=== PATIENT | female | born 1940 | race Caucasian/White ===

== ENCOUNTER 2023-09-01 08:55 | Outpatient (CLI) | payer MEDICARE, SELFPAY | END 2023-09-01 08:56 | disposition home or self-care (01) | LOC: NFLDREF 09-04 04:34 | PROVIDERS: PCP Family Medicine; Visit Provider Family Medicine | DX: E55.9 Vitamin D deficiency, unspecified (principal); E78.5 Hyperlipidemia, unspecified; I10 Essential (primary) hypertension; I12.9 Hypertensive chronic kidney disease with stage 1 through stage 4 chronic kidney disease, or unspecified chronic kidney disease; N18.30 Chronic kidney disease, stage 3 unspecified | CPT/HCPCS: 80053; 80061; 82306 ==

== ENCOUNTER 2023-11-29 09:32 | Outpatient (CLI) | payer MEDICARE, SELFPAY | END 2023-11-29 09:33 | disposition home or self-care (01) | PROVIDERS: PCP Family Medicine; Referring Provider Family Medicine; Visit Provider Family Medicine | DX: E78.5 Hyperlipidemia, unspecified (principal); R73.01 Impaired fasting glucose | CPT/HCPCS: 80061 ==

== ENCOUNTER 2024-03-11 09:34 | Outpatient (CLI) | payer MEDICARE, SELFPAY ==
--- OUTSIDE RECORDS SUMMARY | 2024-03-13 19:50 | XMS_ITS | Referral Summary ---
Author Organization [facility] Address [address] [place] [address] Care Team Providers Care Atm Servicer Name Role Phone Radha Naik M.D. Primary Care Provider [phone] Source Comments Patient records contain information from all sites at [facility]. For routine questions regarding patient records, call [phone] during business hours, M-F 8:00 AM - 5:00 PM Central Time. Record requests for emergency care only can be directed to [phone] at any time.[facility] Encounters Date Type Department Care Team Description 02/06/2024 Orders Only [facility] Radha Naik M.D. Monitoring For Therapeutic Drug Therapy from Last 3 Months Allergies Active Allergy Reactions Criticality Noted Date Comments Amoxicillin-Pot Clavulanate Other (see comments) 02/03/2010 Tolerated cefazolin preop 02/09/22 Aspirin Other (see comments) 02/03/2010 Atorvastatin Myalgia 02/03/2010 Bee Venom Protein (Honey Bee) Other (see comments) 02/03/2010 Naproxen GI intolerance 02/03/2010 Pollen Extracts Other (see comments) 01/13/2023 Itchy and watery eyes. Simvastatin Other (see comments) 02/03/2010 Sulfa (Sulfonamide Antibiotics) Other (see comments) 02/03/2010 Medications Medication Sig Dispensed Refills Start Date End Date Status fexofenadine (CHINTAN) 180 mg tablet Take 1 tablet by mouth as needed. 01/28/2011 Active MULTIVITAMIN WITH MINERALS ORAL Take 1 tablet by mouth daily. 10/29/2012 Active EPINEPHrine 0.3 mg/0.3 mL injection syringe Inject 0.3 mL (0.3 mg total) under the skin as needed for anaphylaxis. Inject into the thigh. 2 each 1 01/10/2023 Active hydroCHLOROthiazide (HYDRODIURIL) 25 mg tablet TAKE ONE TABLET BY MOUTH ONCE DAILY 90 tablet 3 01/26/2023 Active omeprazole (PriLOSEC) [address] capsule TAKE ONE CAPSULE BY MOUTH ONCE DAILY NEEDED 90 capsule 3 01/26/2023 Active acetaminophen (TYLENOL 8 HR) 650 mg ER tablet Take 1 tablet (650 mg total) by mouth 4 (four) times a day. As needed 02/19/2023 Active fluticasone propionate (FLONASE) 50 mcg/actuation nasal spray Administer 1 spray into each nostril daily as needed. For seasonal allergies Active amLODIPine (NORVASC) 5 mg tablet Take 1 tablet (5 mg total) by mouth every evening. 90 tablet 3 03/29/2023 Active lisinopriL (PRINIVIL,ZESTRIL) 40 mg tablet Take 1 tablet (40 mg total) by mouth daily. 90 tablet 1 08/15/2023 Active metoprolol tartrate (LOPRESSOR) 50 mg tabletIndications:H ypertensive Chronic Kidney Disease (CKD) Stage 3a Glomerular Filtration Rate (GFR) 45 To 59 Take 1.5 tablets (75 mg total) by mouth 2 (two) times a day. 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 Lynch 2 cm Hypertensive Chronic Kidney Disease (CKD) Stage 3a Glomerular Filtration Rate (GFR) 45 To 59 02/03/2010 Overview: Hypertension Rhinitis Allergic 02/03/2010 Degeneration Disc Lumbar 02/03/2010 Overview: [id number] Diverticulosis Colon 02/03/2010 Overview: colonoscopy Dysfunction Eustachian Tube Bilateral 02/03/2010 Hyperlipidemia 02/03/2010 Osteoarthritis 02/03/2010 Overweight Body Mass Index 25-29.9 Adult 010 Rosacea 02/03/2010 Pain Back Thoracic Resolved Problems Problem Noted Date Diagnosed Date Resolved Date Pancreatitis Acute 02/18/2023 3 Pain Chest 02/18/2023 03/27/2023 Fatigue 09/22/2022 10/14/2022 Arthroplasty Total Hip Repla cement Status Post Left 10/24/2020 02/16/2023 Anemia Posthemorrhagic Acute (Blood Loss Anemia) 10/23/2020 02/16/2023 Fracture Hip Closed Initial Left 10/21/2020 12/07/2020 Peripheral Vascular Disease 12/26/2019 12/07/2020 Hyperglycemia 02/12/2014 12/07/2020 Pain Face Atypical 12/03/2013 3 Frequency Urinary 10/22/2012 02/16/2023 Arthroplasty Total Knee Repl acement Status Post Right 10/22/2012 02/16/2023 Strain Of Other Muscles Fasc ia And Tendons At Shoulder And Upper Arm Level Right Arm Initial 02/16/2023 Knee Joint Disorder Right Pain Breast 02/16/2023 Immunizations Name Administration Dates Next Due -rabies Immune Globulin 07/08/2020 HZV (ZOSTAVAX) 07/23/2012,07/23/2012 Influenza TIV (IM) 07/08/2020,07/02/2011 Influenza high dose QV(65 ye ars or older) (PF) 07/13/2021 Influenza, Quadrivalent, Adj uvanted, Preservative Free 07/18/2022 Influenza, Seasonal, Injectable 07/24/2007,08/01 Influenza, Unspecified 07/11/2020,2013,07/20/2012,2010 PCV13 10/19/2018,07/02/2006 PPSV23 01/29/2014,11/03/2006,07/02/2006 SARS-COV-2 (COVID-19) - PFIZ ER (Discontinued)(12 years or older) 12/24/2020,12/03/2020 Tdap 01/29/2014 influenza high dose (65 year s or older) (PF) 08/05/2019,09/07/2018,08/10/2017,2015,07/17/2015 Social History Tobacco Use Types Packs/Day Years Used Date Smoking Tobacco: Never Smokeless Tobacco: Never Alcohol Use Standard Drinks/Week Comments No 0 (1 standard drink = 0.6 oz pur e alcohol) PHQ-2 Answer Date Recorded PHQ-2 Score 1 02/09/2023 Depression Answer Date Recor ded PHQ-9 Total Score (max 27) 4 02/09 Nutrition Answer Date Recorded Nutrition: EVOO Fat Source Unknown 11/23 Nutrition: Servings of Fruits/Vegetables per Day Not on file 11/23/2020 Dental Answer Date Recorded Dental: Regular Dentist Unknown 11/23/19 21 Sex and Gender Information Value Date Recorded Sex Assigned at Not on file Gender Identity Not on file Sexual Orientation Not on file Last Filed Vital Signs Vital Sign Reading Time Taken Comments Blood Pressure 162/57 05/08/2023 10:55 AM CDT Pulse 56 05/08/2023 10:55 AM CDT Temperature 36.2 ??C (97.2 ??F) 05/08/2023 10:40 AM C DT Respiratory Rate 12 05/08/2023 10:55 AM CDT Oxygen Saturation 99% 05/08/2023 10:55 AM CDT Inhaled Oxygen Concentration - - Weight 78 kg (171 lb 15.3 oz) 05/08/2023 10:00 A M CDT Height 162.6 cm (5' 4) 04/07/2023 11:45 AM CDT Body Mass Index 29.52 04/07/2023 11:45 AM CDT Plan of Treatment Not on file Medical Devices Implanted Type Area Cost Recovery Technician Device Identifier Shelf Expiration Date Model / Serial / Lot Acetabular Shell 3 Hole Implanted:Qty: 1 on 10/22/2020 by Jose Cisneros M.D. at [facility] Hardware e.g. pins/screws /rods Left: Hip [employer] [id number] 07/14/2030 [id number] / / [id number] Scrw Trl Acet Ft 6.5x30 - [id number] Implanted:Qty: 1 on 10/22/2020 by Jose Cisneros M.D. at [facility] Hardware e.g. pins/screws /rods Left: Hip [employer] [id number] 05/14/2030-6250-065 -30 / / [id number] Scrw Trl Acet Ft 6.5x30 - [id number] Implanted:Qty: 1 on 10/22/2020 by Jose Cisneros M.D. at [facility] Hardware e.g. pins/screws /rods Left: Hip [employer] [id number] 07/29/2030-6250-065 -30 / / [id number] Acetabular Liner Implanted:Qty: 1 on 10/22/2020 by Jose Cisneros M.D. at [facility] Hardware e.g. pins/screws /rods Left: Hip [employer] [id number] 10/27/2021 [id number] / / [id number] Taperloc Complete Femoral Stem Implanted:Qty: 1 on 10/22/2020 by Jose Cisneros M.D. at [facility] Hardware e.g. pins/screws /rods Left: Hip [employer] [id number] 06/04/2030 [id number] / / [id number] Hip Head Mod 36 Std - [id number] Implanted:Qty: 1 on 10/22/2020 by Jose Cisneros M.D. at [facility] Hip Implant Left: Hip [employer] [id number] 02/11/2030 [id number] / / [id number] Knee Implant- 3 Implanted:10/10 (Quantity not on file) Knee Implant Right: Knee Description:right total knee arthroplasty Procedures Procedure Name Priority Date/Time Associated Diagnosis Comments BASIC METABOLIC PANEL, S/P Routine 02/19/2023 6:33 AM CDT COLOGUARD Routine 10/29/2018 9:30 AM LEASING PROPERTY MANAGER Screening Colon Cancer Average Risk from Last 3 Months or Most Recently Relevant to Health Maintenance Results * Basic Metabolic Panel (02/19/2023 6:33 AM CDT) Potassium, P 4.1 3.6 - 5.2 mmol/L 02/19/2023 7:08 AM CDT NPRG Sodium, P 141 135 - 145 mmol/L 02/19/2023 7:08 AM CDT NPRG Chloride, P 105 98 - 107 mmol/L 02/19/2023 7:08 AM CDT NPRG Bicarbonate, P 23 22 - 29 mmol/L 02/19/2023 7:08 AM CDT NPRG Anion Gap, P 13 7 - 15 02/19/2023 7:08 AM CDT NPRG BUN (Blood Urea Nitrogen), P 14 6 - 21 mg/dL 02/19/2023 7:08 AM CDT NPRG Creatinine 0.85 0.59 - 1.04 mg/dL 02/19/2023 7:08 AM CDT NPRG Estimated GFR (eGFR) 69 >=60 mL/min/BSA 02/19/2023 7:08 AM CDT NPRG Comment: Estimated GFR calculated using the 2020 CKD_EPI creatinine equation. Calcium, Total, P 9.8 8.8 - 10.2 mg/dL 02/19/2023 7:08 AM CDT NPRG Glucose, P 115 70 - 140 mg/dL 02/19/2023 7:08 AM CDT NPRG Blood (Blood, Venous) 02/19/2023 6:33 AM CDT 02/19/2023 6:36 AM CDT Boy Lion M.D. LAB BLOOD ADD-ON [facility] [address] [place] [address], [place] NPRG [facility] [address] [facility] [address] * Cologuard - Non RST (10/29/2018 9:30 AM LEASING PROPERTY MANAGER) Result Negative Not Applicable 11/08/2018 9:16 AM LEASING PROPERTY MANAGER [facility] Comment: A negative result indicates a low likelihood that a colorectal cancer (CRC) or an advanced adenoma (adenomatous polyps with more advanced pre-malignant features) is present. The chance that a person with a negative Cologuard test has a colorectal cancer is less than 1 in 1500 (negative predictive value >99.9%) or has an advanced adenoma is less than 5.3% (negative predictive value 94.7%). These data are based on a prospective cross-sectional screening study of 10,000 individuals at average risk for colorectal cancer who were screened with both Cologuard and colonoscopy. (Sid Myles al, N Engl J Med 2014;370(14):9769-6430)\X0A\ \X0A\COLOGUARD RE-SCREENING RECOMMENDATION: Periodic routine colorectal cancer screening is an important part of preventive healthcare for asymptomatic persons at average risk for colorectal cancer. ??Following a negative Cologuard result, the [place] Cancer Society and U.S. Multi-Society Task Force screening guidelines recommend a Cologuard re-screening interval of 3 years. \X0A\References: [place] Cancer Society (ACS). Colorectal cancer prevention and early detection. [place], [place]: [place] [employer] Society; [updated 2015Jan 23]. https://www.cancer.org/cancer/nwkvl-xicvco-pappel/detection- diagnosis-staging/acs-recommendations.html. Accessed June 01, 2018; Stephan FUNEZ, Merrill TRINIDAD, Herminio LagosK, Colorectal Cancer Screening: Recommendations for Physicians and Patients from the U.S. Multi-Society Task Force on Colorectal Cancer Screening, Am J Gastroenterology 2017; 112:6288-0206. Test Type: Composite algorithmic analysis of stool DNA-biomarkers with hemoglobin immunoassay. ?? Quantitative values of individual biomarkers are not reportable and are not associated with individual biomarker result reference ranges. Precautions and Limitations: Cologuard is intended for colorectal cancer screening of adults of either sex, 50 years or older, who are at typical average-risk for colorectal cancer. A negative Cologuard test result does not guarantee the absence of colorectal cancer or advanced adenoma (pre-cancer). Patients with a negative Cologuard test result should be advised to continue participating in a colorectal cancer screening program. Cologuard may produce a positive result, even though a colonoscopy may not find colorectal cancer or precancerous polyps. The performance of Cologuard has been established in a cross sectional study (i.e., single point in time). Performance has not been evaluated in adults who have been previously tested with Cologuard or in patients less than 50 years of age. Cologuard has been approved for use by the U.S. FDA. Cologuard performance data in a 10,000 patient pivotal study using colonoscopy as the reference method can be accessed at the following location: www.[employer]/results. ??Additional description of the Cologuard test process, warnings and precautions can be found at www.cologuardtest.[employer]. Rx Only. Stool (Stool) 10/29/2018 9:3 0 AM LEASING PROPERTY MANAGER 10/31/2018 1:50 PM LEASING PROPERTY MANAGER Radha Naik M.D. 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 Advance Directives 10/19/2018 12:54 PM [facility] Care Directive * Full Code (Latest Code Status on File) Date Activated Date Inactivated Comments 05/08/2023 10:42 AM 05/08/2023 1:33 PM Question Answer Comments Full Code: Not Discussed Due to: Patient not available * Full Code Date Activated Date Inactivated Comments 05/08/2023 9:35 AM 05/08/2023 10:42 AM Question Answer Comments Full Code: Not Discussed Due to: Patient not available * Full Code Date Activated Date Inactivated Comments 02/18/2023 6:31 PM 02/19/2023 4:03 PM Question Answer Comments Full Code: Not Discussed Due to: Patient not available * Full Code Date Activated Date Inactivated Comments 10/24/2020 1:33 PM 10/27/2020 4:20 PM Question Answer Comments Full Code: Discussed * Full Code Date Activated Date Inactivated Comments 10/21/2020 12:36 PM 10/24/2020 1:32 PM Question Answer Comments Full Code: Discussed Healthcare Agents on File Name Relationship Healthcare Agent Relationshi p Communication Simon Reyes Spouse Health Care Agent Mc Reyes Son First Alternate Health Care Agent Edmond Courtney Daughter Second Alternate Health Care Agent Care Teams Atm Servicer Relationship Specialty Start Date End Date Radha Naik M.D. [address] [place] [phone] PCP - General 03/16/17
--- OUTSIDE RECORDS SUMMARY | 2024-03-13 19:50 | XMS_ITS | Clinical Summary ---
Author Organization [facility] Address [address] [place] [address] Care Team Providers Care Tank Builder And Erector Name Role Phone Radha Naik M.D. Primary Care Provider [phone] Source Comments Patient records contain information from all sites at [facility]. For routine questions regarding patient records, call [phone] during business hours, M-F 8:00 AM - 5:00 PM Central Time. 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 Lynch 2 cm Hypertensive Chronic Kidney Disease (CKD) Stage 3a Glomerular Filtration Rate (GFR) 45 To 59 02/03/2010 Overview: Hypertension Rhinitis Allergic 02/03/2010 Degeneration Disc Lumbar 02/03/2010 Overview: [id number] Diverticulosis Colon 02/03/2010 Overview: colonoscopy Dysfunction Eustachian [...] Knee Joint Disorder Right Pain Breast 02/16/2023 Encounters Date Type Department Care Team Description 02/06/2024 Orders Only [facility]NT Radha Naik M.D. Monitoring For Therapeutic Drug Therapy from Last 3 Months Immunizations Name Administration Dates Next Due 22-rabies Immune Globulin 07/08/2020 HZV (ZOSTAVAX) 07/23/2012,07/23/2012 Influenza TIV (IM) 07/08/2020,07/02/2011 Influenza high dose QV(65 ye ars or older) (PF) 07/13/2021 Influenza, Quadrivalent, Adj uvanted, Preservative Free 07/18/2022 Influenza, Seasonal, Injectable 07/24/2007,08/01 Influenza, Unspecified 07/11/2020,2013,07/20/2012,2010 PCV13 10/19/2018,07/02/2006 PPSV23 01/29/2014,11/03/2006,07/02/2006 SARS-COV-2 (COVID-19) - PFIZ ER (Discontinued)(12 years or older) 12/24/2020,12/03/2020 Tdap 01/29/2014 influenza high dose (65 year s or older) (PF) 08/05/2019,09/07/2018,08/10/2017,2015,07/17/2015 Family History Medical History Relation Name Comments Colon cancer Brother 1 Jakub Heart attack Brother 2 Shaquille Lung cancer Brother 3 Zenon Heart attack Brother 4 Jesse Heart disease Brother 5 Stephen Heart attack Father Heart failure Father Polycythemia Mother Relation Name Status Comments Brother 1 Jakub Brother 2 Shaquille Brother 3 Zenon Brother 4 Jesse Brother 5 Stephen Alive Father Mother Sister Social History Tobacco Use Types Packs/Day Years [...] 04/07/2023 11:45 AM CDT Plan of Treatment Health Maintenance Due Date Last Done Comments Visit: Medicare Annual Wellness 1940 Zoster Vaccines (1 of 2) 09/17/2012 07/23/2012, 07/03 COVID-19 Vaccine (4 2022-2 4 season) 2023 07/19/2021, 12/24/2020, 12/03/2020 Office Visit for Blood Press ure Check / Re-check 07/08/2023 04/07/2023, 03/15/2023, 03/15/2023 Depression Screening (Annual PHQ-2) 10/02/2023 Fall Risk Screen (Annual) 10/02/2023 DTaP,Tdap,and Td Vaccines (2 - Td or Tdap) 01/30/2024 01/29/2014 Creatinine Level (Kidney Fun ction Test) 02/20/2024 02/19/2023, 02/18/2023, 01/13/2023, Additional history exists Potassium Level 02/20/2024 02/19/2023, 2 , 01/13/2023, Additional history exists Sodium Level 02/20/2024 02/19/2023, 01/31, 01/13/2023, Additional history exists Visit: Chronic Disease, age 18+ 02/24/2024 Colonoscopy Discontinued 12/08/2008 Pneumococcal vaccine (65+ years) Completed 10/19/2018, 01/29/2014, 11/03/2006, Additional history exists Cologuard Discontinued 10/29/2018 Colorectal Cancer Surveillance Discontinued Influenza Vaccine Completed 08/01/2023, , 07/13/2021, Additional history exists CT Colonography Discontinued Medical Devices Implanted Type Area Resist Coater Developer Device Identifier Shelf Expiration Date Model / Serial / Lot Acetabular Shell 3 Hole Implanted:Qty: 1 on 10/22/2020 by Jose Cisneros M.D. at [facility] Hardware e.g. pins/screws /rods Left: Hip [employer] [id number] 07/14/2030 [id number] / / [id number] Scrw Trl Acet Ft 6.5x30 - [id number] Implanted:Qty: 1 on 10/22/2020 by Jose Cisneros M.D. at [facility] Hardware e.g. pins/screws /rods Left: Hip [employer] [id number] 05/14/2030-6250-065 -30 / / [id number] Scrw Trl Acet Ft 6.5x30 - [id number] Implanted:Qty: 1 on 10/22/2020 by Jose Cisneros M.D. at [facility] Hardware e.g. pins/screws /rods Left: Hip [employer] [id number] 07/29/20306250-065 -30 / / [id number] Acetabular Liner Implanted:Qty: 1 on 10/22/2020 by Jose Cisneros M.D. at [facility] Hardware e.g. pins/screws /rods Left: Hip [employer] [id number] 10/27/2021 [id number] / / [id number] Taperloc Complete Femoral Stem Implanted:Qty: 1 on 10/22/2020 by Jose Cisneros M.D. at [facility] Hardware e.g. pins/screws /rods Left: Hip [employer] [id number] 06/04/2030 [id number] / / [id number] Hip Head Mod 36 Std - [id number] Implanted:Qty: 1 on 10/22/2020 by Jose Cisneros M.D. at [facility] Hip Implant Left: Hip [employer] [id number] 02/11/2030 [id number] / / [id number] Knee Implant- 3 Implanted:10/10 (Quantity not on file) Knee Implant Right: Knee Description:right total knee arthroplasty Procedures Procedure Name Priority Date/Time Associated Diagnosis Comments BASIC METABOLIC PANEL, S/P Routine 02/19/2023 6:33 AM CDT COLOGUARD Routine 10/29/2018 9:30 AM MICROBIOLOGY LAB ASSISTANT Screening Colon Cancer Average Risk from Last [...] CDT Boy Lion M.D. LAB BLOOD ADD-ON [facility] [address] [place] [address], [facility] NPRG [facility] [address] [place] [address] * Cologuard - Non RST (10/29/2018 9:30 AM MICROBIOLOGY LAB ASSISTANT) Result Negative Not Applicable 11/08/2018 9:16 AM [facility] Prescribe Wellness Comment: A negative result indicates a low [...] screened with both Cologuard and colonoscopy. (Sid Dykes. et al, N Engl J Med 2014;370(14):0308-3834)\X0A\ \X0A\COLOGUARD RE-SCREENING RECOMMENDATION: Periodic routine colorectal cancer screening is an important part of preventive healthcare for asymptomatic persons at average risk for colorectal cancer. ??Following a negative Cologuard result, the [place] Cancer Society and U.S. Multi-Society Task Force screening guidelines recommend a Cologuard re-screening interval of 3 years. \X0A\References: [place] [employer] Society (ACS). Colorectal cancer prevention and early detection. [place], [place]: [place] [employer]; [updated 2015Jan 23]. https://www.cancer.org/cancer/txata-dydgrr-lbzjri/detection- diagnosis-staging/acs-recommendations.html. Accessed June 01, 2018; Stephan DK, Merrill TRINIDAD, Herminio LagosK, Colorectal Cancer Screening: Recommendations for Physicians and Patients from the U.S. Multi-Society Task Force on Colorectal Cancer Screening, Am J Gastroenterology 2017; 112:0262-6567. Test Type: Composite algorithmic analysis of stool [...] can be accessed at the following location: www.[employer]/results. ??Additional description of the Cologuard test process, warnings and precautions can be found at www.cologuardtest.[employer]. Rx Only. Stool (Stool) 10/29/2018 9:3 0 AM MICROBIOLOGY LAB ASSISTANT 10/31/2018 1:50 PM MICROBIOLOGY LAB ASSISTANT Radha Naik M.D. LAB BODY FLUIDS AND STOOLS ORDERABLES Performing Organization Address City/State/[facility] Co de Phone Number Prescribe Well[facility] [address] [place] [address] from Last 3 Months or Most Recently Relevant to Health Maintenance Advance Directives For more information, please contact: [phone] Documents on File Type Date Recorded Patient Senior It Business Analyst Expl anation Advance Directives 10/19/2018 12:54 PM a [facility] Care Directive * Full Code (Latest [...] Second Alternate Health Care Agent Care Teams Tank Builder And Erector Relationship Specialty Start Date End Date Radha Naik M.D. [address] [place] [phone] PCP - General 03/16/17
--- OUTSIDE RECORDS SUMMARY | 2024-03-13 19:50 | XMS_ITS | Clinical Summary ---
Author Organization [employer] [facility] Address [place], [place] [address] Care Team Providers Care Parts Sales Advisor Name Role Phone Unknown, Doctor Primary Care Provider Unavailabl e Allergies Active Allergy Reactions Criticality Noted Date Comments Aspirin *Unknown 10/22/2012 Atorvastatin *Unknown 10/22/2012 Cortisone *Unknown Medium 10/22/2012 Naproxen *Unknown 10/22/2012 Sulfa (Sulfonamide Antibiotics) *Unknown 10/03 Medications Medication Sig Dispensed Refills Start Date End Date Status lisinopril (PRINIVIL; ZESTRIL) 20 mg tablet Take 1 tablet by mouth 2 times daily. 0 10/22/2012 Active triamterene-hydrochl orothiazide, 37.5-25 mg, (DYAZIDE) 37.5-25 mg capsule Take 1 capsule by mouth every morning. 0 10/22/2012 Active HYDROmorphone (DILAUDID) 2 mg tablet Take 1 tablet by mouth every 4 hours if needed for Pain. 30 tablet 0 10/26/2012 Active gemfibrozil (LOPID) 600 mg tablet Take 1 tablet by mouth 2 times daily before meals. 0 10/26/2012 Active omeprazole (PRILOSEC) 20 mg capsule Take 1 capsule by mouth 2 times daily before meals. 30 capsule 11 10/26/2012 Active polysaccharide iron complex (FERREX 150) 150 mg iron capsule Take 1 capsule by mouth once daily with a meal. 30 capsule 0 10/26/2012 Active Active Problems Problem Noted Date Diagnosed Date Hyperlipidemia 10/26/2012 S/P total knee replacement 10/22/2012 HTN (hypertension) 10/22/2012 Urinary frequency 10/22/2012 Social History Tobacco Use Types Packs/Day Years Used Date Smoking Tobacco: Never Assessed Sex and Gender Information Value Date Recorded Sex Assigned at Not on file Gender Identity Not on file Sexual Orientation Not on file Obstetrics History Last Filed Vital Signs Vital Sign Reading Time Taken Comments Blood Pressure 140/84 10/26/2012 9:38 AM ENVIRONMENTAL EMERGENCIES PLANNER Pulse 74 10/26/2012 9:38 AM ENVIRONMENTAL EMERGENCIES PLANNER Temperature 36.5 ??C (97.7 ??F) 10/26/2012 9:38 AM CS T Respiratory Rate 16 10/26/2012 9:38 AM ENVIRONMENTAL EMERGENCIES PLANNER Oxygen Saturation 97% 10/22/2012 10:32 AM ENVIRONMENTAL EMERGENCIES PLANNER Inhaled Oxygen Concentration - - Weight 68 kg (149 lb 14.6 oz) 10/26/2012 9:38 AM ENVIRONMENTAL EMERGENCIES PLANNER Height - - Body Mass Index - - Plan of Treatment Health Maintenance Due Date Last Done Comments Tdap 1952 Depression screening for age 12+ 1953 BMI (ht and wt on same day) for age 18+ 1959 Tetanus booster 1961 Zoster (shingles) series for age 50+ (1 of 2) 1991 DEXA/DXA scan for age 65+ 2006 Pneumococcal series for age 65+ (1 of 1 - PCV) 2006 COVID-19 vaccine series ( - 2022- season) 2023 07/19/2021, 12/24/2020, 12/03/2020 Influenza for age 65+ 06/02/2024 Care Teams Parts Sales Advisor Relationship Specialty Start Date End Date Unknown, Doctor . PCP - General Emergency Medicine 11/24/11
--- OUTSIDE RECORDS SUMMARY | 2024-03-13 19:50 | XMS_ITS ---
Author Organization [facility] Address [address] [place] [address] Care Team Providers Care Medical Sonographer Name Role Phone Unavailable Unavailable Unavailable Surgery Details Not on file Complications Check Surgery Details section. Procedure Estimated Blood Loss Check Surgery Details section. Procedure Findings Check Surgery Details section. Procedure Specimens Taken Check Surgery Details section.
--- OUTSIDE RECORDS SUMMARY | 2024-03-13 19:50 | XMS_ITS | Encounter Summary ---
Author Organization [facility] Address [address] [place] [address] Care Team Providers Care Proctologist Name Role Phone Radha Naik M.D. Primary Care Provider [phone] Encounter Details Date Type Department Care Team (Late st Contact Info) Description 02/06/2024 Orders Only [facility] P[facility] MNT Radha Naik M.D. [address] [place] [phone] Monitoring For Therapeutic Drug Therapy Social History Tobacco Use Types Packs/Day Years [...] on file Sexual Orientation Not on file documented as of this encounter Plan of Treatment Scheduled Orders Name Type Priority Associated Diagnoses Orde r Schedule Basic Metabolic Panel Lab Routine Monitoring For Therapeutic Drug Therapy Expected: 02/20/2024, Expires: 08/04/2024 documented as of this encounter Visit Diagnoses Diagnosis Monitoring For Therapeutic Drug Therapy documented in this encounter Additional Health Concerns Assessment Noted Time PHQ-9 Depression Total Score: 4 02/10/20 23 9:27 AM CDT documented as of this encounter Care Teams Proctologist Relationship Specialty Start Date End Date Radha Naik M.D. [address] [place] [phone] PCP - General 03/16/17 documented as of this encounter
== END 2024-03-11 09:35 | disposition home or self-care (01) ==
LOC: NFLDREF 03-13 19:48
PROVIDERS: PCP Family Medicine; Referring Provider Family Medicine; Visit Provider Family Medicine
DX: E78.5 Hyperlipidemia, unspecified (principal); I10 Essential (primary) hypertension; R73.03 Prediabetes
CPT/HCPCS: 80053; 80061

== ENCOUNTER 2024-03-28 14:06 | Outpatient (CLI) | payer MEDICARE, SELFPAY ==
--- OUTSIDE RECORDS SUMMARY | 2024-03-28 14:10 | XMS_ITS | Referral Summary ---
Author Organization [facility] Address [address] [place] [address] Care Team Providers Care Barrel Scraper Name Role Phone Elsewhere, Pcp Primary Care Provider Unavailabl e Source Comments Patient records contain information from all sites at [facility]. For routine questions regarding patient records, call [phone] during business hours, M-F 8:00 AM - 5:00 PM Central Time. Record requests for emergency care only can be directed to [phone] at any time.[facility] Encounters Date Type Department Care Team Description 03/21/2024 Refill Department of Family Medicine in [place], [place] [address] [place] [address] Radha Naik M.D. Med Refill 02/06/2024 Orders Only [facility] Rad[facility]ik M.D. Monitoring For Therapeutic Drug [...] the thigh. 2 each 1 01/10/2023 Active hydroCHLOROthiaz flo (HYDRODIURIL) 25 mg tablet TAKE ONE TABLET [...] daily as needed. For seasonal allergies Active lisinopriL (PRINIVIL,ZESTRI L) 40 mg tablet Take 1 tablet (40 mg total) by mouth daily. 90 tablet 1 08/15/2023 Active metoprolol tartrate (LOPRESSOR) 50 mg tabletIndication s:Hypertensive Chronic Kidney Disease (CKD) Stage 3a Glomerular Filtration Rate (GFR) 45 To 59 Take 1.5 tablets (75 mg total) by mouth 2 (two) times a day. 270 tablet 1 08/15/2023 Active amLODIPine (Norvasc) 5 mg tablet Take 1 tablet (5 mg total) by mouth every evening. Patient needs Office Visit for further refills. 90 tablet 1 03/22/2024 Active amLODIPine (NORVASC) 5 mg tablet Take 1 tablet (5 mg total) by mouth every evening. 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 Lynch 2 cm HH Hypertensive Chronic Kidney Disease (CKD) Stage 3a Glomerular Filtration Rate (GFR) 45 To 59 02/03/2010 Overview: Hypertension Rhinitis Allergic 02/03/2010 Degeneration Disc Lumbar 02/03/2010 Overview: [id number] Diverticulosis Colon 02/03/2010 Overview: colonoscopy Dysfunction Eustachian [...] on file Medical Devices Implanted Type Area Blueprint Blocker Device Identifier Shelf Expiration Date Model / Serial / Lot Acetabular Shell 3 Hole Implanted:Qty: 1 on 10/22/2020 by Jose Cisneros M.D. at [facility] Hardware e.g. pins/screws /rods Left: Hip [employer] [id number] 07/14/2030 [id number] / / [id number] Scrw Trl Acet Ft 6.5x30 - [id number] Implanted:Qty: 1 on 10/22/2020 by Jose Cisneros M.D. at [facility] Hardware e.g. pins/screws /rods Left: Hip [employer] [id number] 05/14/20306250-065 -30 / / [id number] Scrw Trl Acet Ft 6.5x30 - [id number] Implanted:Qty: 1 on 10/22/2020 by Jose Cisneros M.D. at [facility] Hardware e.g. pins/screws /rods Left: Hip [employer] [id number] 07/29/2030625-065 -30 / / [id number] Acetabular Liner Implanted:Qty: 1 on 10/22/2020 by Jose Cisneros M.D. at [facility] Hardware e.g. pins/screws /rods Left: Hip [employer] [id number] 10/27/2021 [id number] / / [id number] Taperloc Complete Femoral Stem Implanted:Qty: 1 on 10/22/2020 by Jose Cisneros M.D. at [facility] Hardware e.g. pins/screws /rods Left: Hip [employer] [id number] 06/04/2030 [id number] / / [id number] Hip Head Mod 36 Std - [id number] Implanted:Qty: 1 on 10/22/2020 by Jose Cisneros M.D. at [facility] Hip Implant Left: Hip [employer] [id number] 02/11/2030 [id number] / / [id number] Knee Implant- 3 Implanted:10/10 (Quantity not on file) Knee Implant Right: Knee Description:right total knee arthroplasty Procedures Procedure Name Priority Date/Time Associated Diagnosis Comments BASIC METABOLIC PANEL, S/P Routine 02/19/2023 6:33 AM CDT COLOGUARD Routine 10/29/2018 9:30 AM SHOVEL HANDLE ASSEMBLER Screening Colon Cancer Average Risk from Last 3 Months or Most Recently Relevant to Health Maintenance Results * Basic Metabolic Panel (02/19/2023 6:33 AM CDT) Pathologist [facility] Potassium, P 4.1 3.6 - 5.2 mmol/L [...] CDT Boy Lion M.D. LAB BLOOD ADD-ON [facility] [address] [place] [address], [facility] NPRG [facility] [address] [place] [address] * Cologuard - Non RST (10/29/2018 9:30 AM SHOVEL HANDLE ASSEMBLER) Pathologist [facility] Result Negative Not Applicable 11/08/2018 9:16 AM SHOVEL HANDLE ASSEMBLER [employer] Comment: A negative result indicates a low [...] screened with both Cologuard and colonoscopy. (Sid T. et al, N Engl J Med 2014;370(14):9089-8225)\X0A\ \X0A\COLOGUARD RE-SCREENING RECOMMENDATION: Periodic routine colorectal cancer screening is an important part of preventive healthcare for asymptomatic persons at average risk for colorectal cancer. ??Following a negative Cologuard result, the [place] Cancer Society and U.S. Multi-Society Task Force screening guidelines recommend a Cologuard re-screening interval of 3 years. \X0A\References: [place] [employer] Society (ACS). Colorectal cancer prevention and early detection. [place], [place]: [place] [employer]; [updated 2015Jan 23]. https://www.cancer.org/cancer/puahe-jxezpo-pggqtj/detection- diagnosis-staging/acs-recommendations.html. Accessed June 01, 2018; Stephan FUNEZ, Merrill TRINIDAD, Herminio SANTANA, Colorectal Cancer Screening: Recommendations for Physicians and Patients from the U.S. Multi-Society Task Force on Colorectal Cancer Screening, Am J Gastroenterology 2017; 112:4619-2729. Test Type: Composite algorithmic analysis of stool [...] can be accessed at the following location: www.[employer]/results. ??Additional description of the Cologuard test process, warnings and precautions can be found at www.cologuardtest.com. Rx Only. Stool (Stool) 10/29/2018 9:3 0 AM SHOVEL HANDLE ASSEMBLER 10/31/2018 1:50 PM SHOVEL HANDLE ASSEMBLER Radha Naik M.D. LAB BODY FLUIDS AND STOOLS ORDERABLES Performing Organization Address City/State/[facility] Co de Phone Number [employer] [address] [place] [address] from Last 3 Months or Most Recently Relevant to Health Maintenance Advance Directives For more information, please contact: [phone] Documents on File Type Date Recorded Patient Power Transformer Repair Supervisor Expl anation Advance Directives 10/19/2018 12:54 PM [facility] Care Directive * Full Code (Latest [...] Second Alternate Health Care Agent Care Teams Barrel Scraper Relationship Specialty Start Date End Date Elsewhere, Pcp PCP - General Internal Medicine 03/22/24
--- OUTSIDE RECORDS SUMMARY | 2024-03-28 14:10 | XMS_ITS | Encounter Summary ---
Author Organization [facility] Address [address] [place] [address] Care Team Providers Care Events Solutions Consultant Name Role Phone Radha Naik M.D. Primary Care Provider [phone] Encounter Details Date Type Department Care Team (Late st Contact Info) Description 02/06/2024 Orders Only [facility] MNT Radha Naik M.D. [address] [place] [phone] Monitoring For Therapeutic Drug Therapy Social History [...] as of this encounter Plan of Treatment Not on file documented as of this encounter Visit Diagnoses Diagnosis Monitoring For Therapeutic Drug Therapy documented in this encounter Additional Health Concerns Assessment Noted Time PHQ-9 Depression Total Score: 4 02/10/20 23 9:27 AM CDT documented as of this encounter Care Teams Events Solutions Consultant Relationship Specialty Start Date End Date Radha Naik M.D. [address] [place] [phone] PCP - General 03/16/17 03/21/24 documented as of this encounter
--- OUTSIDE RECORDS SUMMARY | 2024-03-28 14:10 | XMS_ITS ---
Author Organization [facility] Address [address] [place] [address] Care Team Providers Care Plastic Process Technician Name Role Phone Unavailable Unavailable Unavailable Surgery Details Not on file Complications Check Surgery Details section. Procedure Estimated Blood Loss Check Surgery Details section. Procedure Findings Check Surgery Details section. Procedure Specimens Taken Check Surgery Details section.
--- OUTSIDE RECORDS SUMMARY | 2024-03-28 14:10 | XMS_ITS | Clinical Summary ---
Author Organization [facility] Address [address] [place] [address] Care Team Providers Care Cloth Framer Name Role Phone Elsewhere, Pcp Primary Care Provider Unavailabl e Source Comments Patient records contain information from all sites at [facility]. For routine questions regarding patient records, call [phone] during business hours, M-F 8:00 AM - 5:00 PM Central Time. 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 Lynch 2 cm Hypertensive Chronic Kidney Disease (CKD) Stage 3a Glomerular Filtration Rate (GFR) 45 To 59 02/03/2010 Overview: Hypertension Rhinitis Allergic 02/03/2010 Degeneration Disc Lumbar 02/03/2010 Overview: [id number] Diverticulosis Colon 02/03/2010 Overview: colonoscopy Dysfunction Eustachian [...] 03/21/2024 Refill Department of Family Medicine in [place], [place] [address] [place] [address] Radha Naik M.D. Med Refill 02/06/2024 Orders Only [facility] PCP [facility] [...] Health Maintenance Due Date Last Done Comments Zoster Vaccines (1 of 2) 09/17/2012 07/23/2012, 07/03 COVID-19 Vaccine (2022- 4 season) 2023 07/19/2021, 12/24/2020, 12/03/2020 Office Visit for Blood Press ure Check / Re-check 07/08/2023 04/07/2023 Depression Screening (Annual PHQ-2) 10/02/2023 Fall Risk Screen (Annual) 10/02/2023 DTaP,Tdap,and Td Vaccines (2 - Td or Tdap) 01/30/2024 01/29/2014 Creatinine Level (Kidney Fun ction Test) 02/20/2024 02/19/2023, 02/18/2023, 01/13/2023, Additional history exists Potassium Level 02/20/2024 02/19/2023, 01/31, 01/13/2023, Additional history exists Sodium Level 02/20/2024 02/19/2023, 01/31, 01/13/2023, Additional history exists Colonoscopy Discontinued 12/08/2008 Pneumococcal vaccine (65+ years) Completed 10/19/2018, 01/29/2014, 11/03/2006, Additional history exists Cologuard Discontinued 10/29/2018 Colorectal Cancer Surveillance Discontinued Influenza Vaccine Completed 08/01/2023, , 07/13/2021, Additional history exists CT Colonography Discontinued Medical Devices Implanted Type Area Mail Processing Machine Operator Device Identifier Shelf Expiration Date Model / Serial / Lot Acetabular Shell 3 Hole Implanted:Qty: 1 on 10/22/2020 by Jose Cisneros M.D. at [facility] Hardware e.g. pins/screws /rods Left: Hip [employer] [id number] 07/14/2030 [id number] / / [id number] Scrw Trl Acet Ft 6.5x30 - [id number] Implanted:Qty: 1 on 10/22/2020 by Jose Cisneros M.D. at [facility] Hardware e.g. pins/screws /rods Left: Hip [employer] [id number] 05/14/20306250-065 -30 / / [id number] Scrw Trl Acet Ft 6.5x30 - [id number] Implanted:Qty: 1 on 10/22/2020 by Jose Cisneros M.D. at [facility] Hardware e.g. pins/screws /rods Left: Hip [employer] [id number] 07/29/2030-6250-065 -30 / / [id number] Acetabular Liner Implanted:Qty: 1 on 10/22/2020 by Jose Cisneros M.D. at [facility] Hardware e.g. pins/screws /rods Left: Hip [employer] [id number] 10/27/2021 [id number] / / [id number] Taperloc Complete Femoral Stem Implanted:Qty: 1 on 10/22/2020 by Jose Cisneros M.D. at [facility] Hardware e.g. pins/screws /rods Left: Hip [employer] [id number] 06/04/2030 [id number] / / [id number] Hip Head Mod 36 Std - [id number] Implanted:Qty: 1 on 10/22/2020 by Jose Cisneros M.D. at [facility] Hip Implant Left: Hip [employer] [id number] 02/11/2030 [id number] / / [id number] Knee Implant- 3 Implanted:10/10 (Quantity not on file) Knee Implant Right: Knee Description:right total knee arthroplasty Procedures Procedure Name Priority Date/Time Associated Diagnosis Comments BASIC METABOLIC PANEL, S/P Routine 02/19/2023 6:33 AM CDT COLOGUARD Routine 10/29/2018 9:30 AM SALVAGE CUTTER Screening Colon Cancer Average Risk from Last [...] CDT Boy Lion M.D. LAB BLOOD ADD-ON [facility] [address] [place] [address], [facility] NPRG [facility] [address] [place] [address] * Cologuard - Non RST (10/29/2018 9:30 AM SALVAGE CUTTER) Result Negative Not Applicable 11/08/2018 9:16 AM SALVAGE CUTTER [employer] Comment: A negative result indicates a low [...] screened with both Cologuard and colonoscopy. (Sid Delgado et al, N Engl J Med 2014;370(14):6437-8918)\X0A\ \X0A\COLOGUARD RE-SCREENING RECOMMENDATION: Periodic routine colorectal cancer screening is an important part of preventive healthcare for asymptomatic persons at average risk for colorectal cancer. ??Following a negative Cologuard result, the [place] Cancer Society and U.S. Multi-Society Task Force screening guidelines recommend a Cologuard re-screening interval of 3 years. \X0A\References: [place] Cancer Society (ACS). Colorectal cancer prevention and early detection. [place], [place]: [place] Cancer Society; [updated 2015Jan 23]. https://www.cancer.org/cancer/slfzl-pppndt-jckary/detection- diagnosis-staging/acs-recommendations.html. Accessed June 01, 2018; Stephan DK, Merrill TRINIDAD, Herminio LagosK, Colorectal Cancer Screening: Recommendations for Physicians and Patients from the U.S. Multi-Society Task Force on Colorectal Cancer Screening, Am J Gastroenterology 2017; 112:2706-5310. Test Type: Composite algorithmic analysis of stool [...] can be accessed at the following location: www.Tigermed/results. ??Additional description of the Cologuard test process, warnings and precautions can be found at www.cologuardtest.Earth [employer]. Rx Only. Stool (Stool) 10/29/2018 9:3 0 AM SALVAGE CUTTER 10/31/2018 1:50 PM SALVAGE CUTTER Radha Naik M.D. LAB BODY FLUIDS AND STOOLS ORDERABLES [employer] [address] [place] [address] from Last 3 Months or Most Recently Relevant to Health Maintenance Advance Directives For more information, please contact: [phone] Documents on File Type Date Recorded Patient Nurse Midwife/Clinical Instructor Expl anation Advance Directives 10/19/2018 12:54 PM [facility] Care Directive * Full Code (Latest [...] Agents on File Name Relationship [facility] Simon Reyes Spouse Health Care Agent Mc Reyes Son First Alternate Health Care Agent Edmond Courtney Daughter Second Alternate Health Care Agent Care Teams Cloth Framer Relationship Specialty Start Date End Date Elsewhere, Pcp PCP - General Internal Medicine 03/22/24
--- OUTSIDE RECORDS SUMMARY | 2024-03-28 14:10 | XMS_ITS | Encounter Summary ---
Author Organization [facility] Address [address] [place] [address] Care Team Providers Care Outside Machinist Helper Name Role Phone Elsewhere, Pcp Primary Care Provider Unavailabl e Reason for Visit * Reason Comments Med Refill Encounter Details Date Type Department Care Team (Late st Contact Info) Description 03/21/2024 Refill Department of Family Medicine in [place], [place] [address] [place] [address] Radha Naik M.D. [address] [place] [address] Med Refill Social History Tobacco Use Types Packs/Day Years [...] on file documented as of this encounter Miscellaneous Notes * Telephone Encounter - Arpan Villanueva V. - 03/22/2024 11:13 AM CDT Existing Office visit order available for patient to schedule. Recent Visits No visits were found meeting these conditions. Showing recent visits within past 365 days with a meds authorizing provider and meeting all other requirements Future Appointments No visits were found meeting these conditions. Showing future appointments within next 90 days with a meds authorizing provider and meeting all other requirements documented in this encounter Plan of Treatment Not on file documented as of this encounter Visit Diagnoses Not on filedocumented in this encounter Additional Health Concerns Assessment Noted Time PHQ-9 Depression Total Score: 4 02/10/20 23 9:27 AM CDT documented as of this encounter Care Teams Outside Machinist Helper Relationship Specialty Start Date End Date Elsewhere, Pcp PCP - General Internal Medicine 03/22/24 documented as of this encounter
--- OUTSIDE RECORDS SUMMARY | 2024-03-28 14:11 | XMS_ITS | Clinical Summary ---
Author Organization [employer] [facility] Address [place], [place] [address] Care Team Providers Care Account Receivable Associate Name Role Phone Unknown, Doctor Primary Care [...] Comments Blood Pressure 140/84 10/26/2012 9:38 AM WORKFORCE MANAGER Pulse 74 10/26/2012 9:38 AM WORKFORCE MANAGER Temperature 36.5 ??C (97.7 ??F) 10/26/2012 9:38 AM CS T Respiratory Rate 16 10/26/2012 9:38 AM WORKFORCE MANAGER Oxygen Saturation 97% 10/22/2012 10:32 AM WORKFORCE MANAGER Inhaled Oxygen Concentration - - Weight 68 kg (149 lb 14.6 oz) 10/26/2012 9:38 AM WORKFORCE MANAGER Height - - Body Mass Index - [...] Influenza for age 65+ 06/02/2024 Care Teams Account Receivable Associate Relationship Specialty Start Date End Date Unknown, Doctor . PCP - General Emergency Medicine 11/24/11
--- NOTE | 2024-03-28 14:30 | CRLHL7_ITS ---
For Patients: As a result of the Century Cures Act, medical imaging exams and procedure reports are released immediately into your electronic medical record. You may view this report before your referring provider. If you have questions, please contact your health care provider. DXA BONE MINERAL DENSITY STUDY Reason for exam: Asymptomatic menopausal state. Current height (in): 65. Weight (lb): 170. Menopause age: 60. Ethnicity: White. 1. Have you had a previous hip or vertebral fracture? No. 2. Have you had any fractures during your adult life which did not result from significant trauma (e.g., auto accident)? No. 3. Did either of your parents have a hip fracture? No. 4. Do you smoke? No. 5. Have you ever taken Glucocorticoids? No. 6. Do you have rheumatoid arthritis? No. 7. Do you have secondary osteoporosis? Yes. 8. Do you drink 3 or more alcoholic drinks per day? No. 9. Are you being treated for osteoporosis? No. 10. Have you ever taken any of the following medications: Actonel, Evista, Fosamax, Miacalcin, Reclast, Boniva, Forteo, HRT (i.e., estrogen/hormone therapy), Protelos, Prolia, Vitamin D, Calcium, other ??? please specify. ANSWER: No. 11. Do you have any of the following medical conditions: Anorexia or bulimia, asthma or emphysema, end stage renal disease, hyperparathyroidism, any seizure disorders, cancer, inflammatory bowel diseases, hysterectomy, other ??? please specify. ANSWER: Yes, cancer. 12. What was your maximum height (inches)? 67. 13. Do you perform weight bearing exercise regularly? No. 14. Do you regularly consume dairy products? Yes. 15. Do you drink caffeinated beverages? No. 16. At what age did your period start? 17. 17. Are you premenopausal? No. 18. How many full-term pregnancies have you had? 6. 19. Have you ever missed your period for more than 6 months in a row (not including or menopause)? No. TECHNIQUE: Bone mineral density study was performed using the Virtual 3-D Display for Smartphones. FINDINGS: The results of the study expressed as bone mineral density (BMD) are as follows: Lumbar spine L1 to L4: BMD: 1.410 g/cm2. T-score: 3.3. Z-score: 6.1 Neck Right: BMD: 0.664 g/cm2. T-score: -1.7. Z-score: 0.7 Total Right: BMD: 0.867 g/cm2. T-score: -0.6. Z-score: 1.6 IMPRESSION: Osteopenia. *Comparison exams done prior to 03/2020 were performed on different unit, [employer]. Glen Puckett M.D. Diagnostic Radiologist [email or web address] NEREIDA/miguel rivera/Dictated by: Glen Puckett MD @ 04/01/2024 9:07:00 AM (Electronically Signed)
== END 2024-03-28 14:07 | disposition home or self-care (01) ==
LOC: RAD 14:07
PROVIDERS: PCP Family Medicine; Visit Provider Family Medicine
DX: Z78.0 Asymptomatic menopausal state (principal); M85.89 Other specified disorders of bone density and structure, multiple sites
CPT/HCPCS: 77080

== ENCOUNTER 2024-04-18 06:22 | Outpatient (CLI) | payer MEDICARE, SELFPAY ==
--- OUTSIDE RECORDS SUMMARY | 2024-04-18 06:24 | XMS_ITS | Referral Summary ---
Author Organization [facility] Address [address] [place] [address] Care Team Providers Care Spotter Name Role Phone Elsewhere, Pcp Primary Care Provider Unavailabl e Source Comments Patient records contain information from all sites at [facility]. For routine questions regarding patient records, call [phone] during business hours, M-F 8:00 AM - 5:00 PM Central Time. Record requests for emergency care only can be directed to [phone] at any time.[facility] Encounters Date Type Department Care Team Description 03/21/2024 Refill Department of Family Medicine in [place], [place] [address] [place] [address] Radha Naik M.D. Med Refill 02/06/2024 Orders Only [facility] Radha Naik M.D. 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 Lynch 2 cm HH Hypertensive Chronic Kidney Disease (CKD) Stage 3a Glomerular Filtration Rate (GFR) 45 To 59 02/03/2010 Overview: Hypertension Rhinitis Allergic 02/03/2010 Degeneration Disc Lumbar 02/03/2010 Overview: [id number] Diverticulosis Colon 02/03/2010 Overview: colonoscopy Dysfunction Eustachian [...] on file Medical Devices Implanted Type Area Principal Statistical Programmer Device Identifier Shelf Expiration Date Model / Serial / Lot Acetabular Shell 3 Hole Implanted:Qty: 1 on 10/22/2020 by Jose Cisneros M.D. at [facility] Hardware e.g. pins/screws /rods Left: Hip [employer] [id number] 07/14/2030 [id number] / / [id number] Scrw Trl Acet Ft 6.5x30 - [id number] Implanted:Qty: 1 on 10/22/2020 by Jose Cisneros M.D. at [facility] Hardware e.g. pins/screws /rods Left: Hip [employer] [id number] 05/14/20306250-065 -30 / / [id number] Scrw Trl Acet Ft 6.5x30 - [id number] Implanted:Qty: 1 on 10/22/2020 by Jose Cisneros M.D. at [facility] Hardware e.g. pins/screws /rods Left: Hip [employer] [id number] 07/29/2030625-065 -30 / / [id number] [id number] Acetabular Liner Implanted:Qty: 1 on 10/22/2020 by Jose Cisneros M.D. at [facility] Hardware e.g. pins/screws /rods Left: Hip [employer] [id number] 10/27/2021 [id number] / / [id number] Taperloc Complete Femoral Stem Implanted:Qty: 1 on 10/22/2020 by Jose Cisneros M.D. at [facility] Hardware e.g. pins/screws /rods Left: Hip [employer] [id number] 06/04/2030 [id number] / / [id number] Hip Head Mod 36 Std - [id number] Implanted:Qty: 1 on 10/22/2020 by Jose Cisneros M.D. at [facility] Hip Implant Left: Hip [employer] [id number] 02/11/2030 11-978878 / / [id number] Knee Implant- 3 Implanted:10/10 (Quantity not on file) Knee Implant Right: Knee Description:right total knee arthroplasty Procedures Procedure Name Priority Date/Time Associated Diagnosis Comments BASIC METABOLIC PANEL, S/P Routine 02/19/2023 6:33 AM CDT COLOGUARD Routine 10/29/2018 9:30 AM WIRE ANNEALER Screening Colon Cancer Average Risk from Last 3 Months or Most Recently Relevant to Health Maintenance Results * Basic Metabolic Panel (02/19/2023 6:33 AM CDT) Pathologist [facility] Potassium, P 4.1 3.6 - 5.2 mmol/L [...] CDT Boy Lion M.D. LAB BLOOD ADD-ON [facility] [address] [place] [address], [facility] NPRG [facility] [address] [place] [address] * Cologuard - Non RST (10/29/2018 9:30 AM WIRE ANNEALER) Pathologist [facility] Result Negative Not Applicable 11/08/2018 9:16 AM WIRE ANNEALER [employer] Comment: A negative result indicates a low [...] T. et al, N Engl J Med 2014;370(14):5487-6913)\X0A\ \X0A\COLOGUARD RE-SCREENING RECOMMENDATION: Periodic routine colorectal cancer screening is an important part of preventive healthcare for asymptomatic persons at average risk for colorectal cancer. ??Following a negative Cologuard result, the [place] Cancer Society and U.S. Multi-Society Task Force screening guidelines recommend a Cologuard re-screening interval of 3 years. \X0A\References: [place] Cancer Society (ACS). Colorectal cancer prevention and early detection. [place], [place]: [place] Cancer Society; [updated 2015Jan 23]. https://www.cancer.org/cancer/rpjqy-ejozfu-uducwg/detection- diagnosis-staging/acs-recommendations.html. Accessed June 01, 2018; Stephan FUNEZ, Merrill TRINIDAD, Herminio SANTANA, Colorectal Cancer Screening: Recommendations for Physicians and Patients from the U.S. Multi-Society Task Force on Colorectal Cancer Screening, Am J Gastroenterology 2017; 112:1405-0248. Test Type: Composite algorithmic analysis of stool [...] can be accessed at the following location: www.Zylie the Bear/results. ??Additional description of the Cologuard test process, warnings and precautions can be found at www.cologuardtest.com. Rx Only. Stool (Stool) 10/29/2018 9:3 0 AM WIRE ANNEALER 10/31/2018 1:50 PM WIRE ANNEALER Radha Naik M.D. LAB BODY FLUIDS AND STOOLS ORDERABLES Performing Organization Address City/State/[facility] Co de Phone Number [employer] [address] [place] [phone] from Last 3 Months or Most Recently Relevant to Health Maintenance Advance Directives For more information, please contact: [phone] Documents on File Type Date Recorded Patient Type Copy Examiner Expl anation Advance Directives 10/19/2018 12:54 PM [facility] Care Directive * Full Code (Latest Code [...] Second Alternate Health Care Agent Care Teams Spotter Relationship Specialty Start Date End Date Elsewhere, Pcp PCP - General Internal Medicine 03/22/24
--- OUTSIDE RECORDS SUMMARY | 2024-04-18 06:24 | XMS_ITS | Clinical Summary ---
Author Organization [facility] Address [address] [place] [address] Care Team Providers Care Electronic Science Teacher Name Role Phone Elsewhere, Pcp Primary Care Provider Unavailabl e Source Comments Patient records contain information from all sites at [facility]. For routine questions regarding patient records, call [phone] during business hours, M-F 8:00 AM - 5:00 PM Central Time. 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 Lynch 2 cm Hypertensive Chronic Kidney Disease (CKD) Stage 3a Glomerular Filtration Rate (GFR) 45 To 59 02/03/2010 Overview: Hypertension Rhinitis Allergic 02/03/2010 Degeneration Disc Lumbar 02/03/2010 Overview: [id number] Diverticulosis Colon 02/03/2010 Overview: colonoscopy Dysfunction Eustachian [...] 03/21/2024 Refill Department of Family Medicine in [place], [place] [address] [place] [address] Radha Naik M.D. Med Refill 02/06/2024 Orders [...] 02/20/2024 02/19/2023, 01/31, 01/13/2023, Additional history exists Influenza Vaccine (#1) 2024 , 07/18/2022, 07/13/2021, Additional history exists Colonoscopy Discontinued 12/08/2008 Pneumococcal vaccine (65+ years) Completed 10/19/2018, 01/29/2014, 11/03/2006, Additional history exists Cologuard Discontinued 10/29/2018 Colorectal Cancer Surveillance Discontinued CT Colonography Discontinued Medical Devices Implanted Type Area Community Organization Worker Device Identifier Shelf Expiration Date Model / Serial / Lot Acetabular Shell 3 Hole Implanted:Qty: 1 on 10/22/2020 by Jose Cisneros M.D. at [facility] Hardware e.g. pins/screws /rods Left: Hip [employer] [id number] 07/14/2030 [id number] / / [id number] Scrw Trl Acet Ft 6.5x30 - [id number] Implanted:Qty: 1 on 10/22/2020 by Jose Cisneros M.D. at [facility] Hardware e.g. pins/screws /rods Left: Hip [employer] [id number] 05/14/20306250-065 -30 / / [id number] Scrw Trl Acet Ft 6.5x30 - [id number] Implanted:Qty: 1 on 10/22/2020 by Jose Cisneros M.D. at [facility] Hardware e.g. pins/screws /rods Left: Hip [employer] [id number] 07/29/20306250-065 -30 / / [id number] [id number] Acetabular Liner Implanted:Qty: 1 on 10/22/2020 by Jose Cisneros M.D. at [facility] Hardware e.g. pins/screws /rods Left: Hip [employer] [id number] 10/27/2021 [id number] / / [id number] Taperloc Complete Femoral Stem Implanted:Qty: 1 on 10/22/2020 by Jose Cisneros M.D. at [facility] Hardware e.g. pins/screws /rods Left: Hip [employer] [id number] 06/04/2030 [id number] / / [id number] Hip Head Mod 36 Std - [id number] Implanted:Qty: 1 on 10/22/2020 by Jose Cisneros M.D. at [facility] Hip Implant Left: Hip [employer] [id number] 02/11/2030 11-141777 / / [id number] Knee Implant- 3 Implanted:10/10 (Quantity not on file) Knee Implant Right: Knee Description:right total knee arthroplasty Procedures Procedure Name Priority Date/Time Associated Diagnosis Comments BASIC METABOLIC PANEL, S/P Routine 02/19/2023 6:33 AM CDT COLOGUARD Routine 10/29/2018 9:30 AM BOBBIN HAULER Screening Colon Cancer Average Risk from Last [...] CDT Boy Lion M.D. LAB BLOOD ADD-ON [facility] [address] [place] [address], [place] NPRG [place] [address] [place] [address] * Cologuard - Non RST (10/29/2018 9:30 AM BOBBIN HAULER) Result Negative Not Applicable 11/08/2018 9:16 AM BOBBIN HAULER [employer] Comment: A negative result indicates a low [...] (Sid Myles al, N Engl J Med 2014;370(14):9071-5702)\X0A\ \X0A\COLOGUARD RE-SCREENING RECOMMENDATION: Periodic routine colorectal cancer screening is an important part of preventive healthcare for asymptomatic persons at average risk for colorectal cancer. ??Following a negative Cologuard result, the [place] Cancer Society and U.S. Multi-Society Task Force screening guidelines recommend a Cologuard re-screening interval of 3 years. \X0A\References: [place] Cancer Society (ACS). Colorectal cancer prevention and early detection. [place], [place]: [place] Cancer Society; [updated 2015Jan 23]. https://www.cancer.org/cancer/dlcbf-vwankj-wfbxjb/detection- diagnosis-staging/acs-recommendations.html. Accessed June 01, 2018; Stephan FUNEZ, Merrill TRINIDAD, Herminio LagosK, Colorectal Cancer Screening: Recommendations for Physicians and Patients from the U.S. Multi-Society Task Force on Colorectal Cancer Screening, Am J Gastroenterology 2017; 112:9257-8024. Test Type: Composite algorithmic analysis of stool [...] can be accessed at the following location: www.iPeen/results. ??Additional description of the Cologuard test process, warnings and precautions can be found at www.cologuardtest.[employer] Rx Only. Stool (Stool) 10/29/2018 9:3 0 AM BOBBIN HAULER 10/31/2018 1:50 PM BOBBIN HAULER Radha Naik M.D. LAB BODY FLUIDS AND STOOLS ORDERABLES [employer] [address] [place] [address] from Last 3 Months or Most Recently Relevant to Health Maintenance Advance Directives For more information, please contact: [phone] Documents on File Type Date Recorded Patient Software Test Developer Expl anation Advance Directives 10/19/2018 12:54 PM [facility] Care Directive * Full Code (Latest [...] Second Alternate Health Care Agent Care Teams Electronic Science Teacher Relationship Specialty Start Date End Date Elsewhere, Pcp PCP - General Internal Medicine 03/22/24
--- OUTSIDE RECORDS SUMMARY | 2024-04-18 06:24 | XMS_ITS | Encounter Summary ---
Author Organization [facility] Address [address] [place] [address] Care Team Providers Care Wheat Combine Driver Name Role Phone Radha Naik M.D. Primary Care Provider [phone] Encounter Details Date Type Department Care Team (Late st Contact Info) Description 02/06/2024 Orders Only [facility] P[facility] Radha Naik M.D. [address] [place] [phone] Monitoring For Therapeutic Drug Therapy Social History [...] documented as of this encounter Care Teams Wheat Combine Driver Relationship Specialty Start Date End Date Radha Naik M.D. [address] [place] [phone] PCP - General 03/16/17 03/21/24 documented as of this encounter
--- OUTSIDE RECORDS SUMMARY | 2024-04-18 06:24 | XMS_ITS | Clinical Summary ---
Author Organization [email or web address] [facility] Address [place], [place] [address] Care Team Providers Care Emergency Room Physician Name Role Phone Unknown, Doctor Primary Care [...] Comments Blood Pressure 140/84 10/26/2012 9:38 AM RELIEF CAPTAIN Pulse 74 10/26/2012 9:38 AM RELIEF CAPTAIN Temperature 36.5 ??C (97.7 ??F) 10/26/2012 9:38 AM CS T Respiratory Rate 16 10/26/2012 9:38 AM RELIEF CAPTAIN Oxygen Saturation 97% 10/22/2012 10:32 AM RELIEF CAPTAIN Inhaled Oxygen Concentration - - Weight 68 kg (149 lb 14.6 oz) 10/26/2012 9:38 AM RELIEF CAPTAIN Height - - Body Mass Index - [...] Influenza for age 65+ 06/02/2024 Care Teams Emergency Room Physician Relationship Specialty Start Date End Date Unknown, Doctor . PCP - General Emergency Medicine 11/24/11
--- OUTSIDE RECORDS SUMMARY | 2024-04-18 06:24 | XMS_ITS ---
Author Organization [facility] Address [address] [place] [address] Care Team Providers Care Manager Field Services Name Role Phone Unavailable Unavailable Unavailable Surgery Details Not on file Complications Check Surgery Details section. Procedure Estimated Blood Loss Check Surgery Details section. Procedure Findings Check Surgery Details section. Procedure Specimens Taken Check Surgery Details section.
--- OUTSIDE RECORDS SUMMARY | 2024-04-18 06:24 | XMS_ITS | Encounter Summary ---
Author Organization [facility] Address [address] [place] [address] Care Team Providers Care Cane Weigher Name Role Phone Elsewhere, Pcp Primary Care Provider Unavailabl e Reason for Visit * Reason Comments Med Refill Encounter Details Date Type Department Care Team (Late st Contact Info) Description 03/21/2024 Refill Department of Family Medicine in [place], [place] [address] [place] [phone] Radha Naik M.D. [address] [place] [address] Med Refill Social History Tobacco Use Types [...] documented as of this encounter Care Teams Cane Weigher Relationship Specialty Start Date End Date Elsewhere, Pcp PCP - General Internal Medicine 03/22/24 documented as of this encounter
== END 2024-04-18 06:23 | disposition home or self-care (01) ==
LOC: NFLDREF 06:22
PROVIDERS: PCP Family Medicine; Visit Provider Family Medicine
DX: N39.0 Urinary tract infection, site not specified (principal); B96.20 Unspecified Escherichia coli [E. coli] as the cause of diseases classified elsewhere
CPT/HCPCS: 87086; 87186

== ENCOUNTER 2024-09-09 08:45 | Outpatient (CLI) | payer MEDICARE, SELFPAY | END 2024-09-09 08:46 | disposition home or self-care (01) | LOC: NFLDREF 09-11 08:38 | PROVIDERS: PCP Family Medicine; Referring Provider Family Medicine; Visit Provider Family Medicine | DX: R73.03 Prediabetes (principal); I10 Essential (primary) hypertension; E78.2 Mixed hyperlipidemia; M81.0 Age-related osteoporosis without current pathological fracture | CPT/HCPCS: 80053; 80061; 82306 ==

== ENCOUNTER 2024-11-13 10:43 | Outpatient (CLI) | payer MEDICARE, SELFPAY | END 2024-11-13 10:44 | disposition home or self-care (01) | LOC: CT 10:43 | PROVIDERS: PCP Family Medicine; Visit Provider Family Medicine | DX: R91.8 Other nonspecific abnormal finding of lung field (principal) | CPT/HCPCS: 71250 ==

== ENCOUNTER 2025-02-06 08:43 | Outpatient (CLI) | payer MEDICARE, SELFPAY | END 2025-02-06 08:44 | disposition home or self-care (01) | LOC: NFLDREF 02-16 18:12 | PROVIDERS: PCP Family Medicine; Referring Provider Family Medicine; Visit Provider Family Medicine | DX: E11.22 Type 2 diabetes mellitus with diabetic chronic kidney disease (principal); I12.9 Hypertensive chronic kidney disease with stage 1 through stage 4 chronic kidney disease, or unspecified chronic kidney disease; N18.31 Chronic kidney disease, stage 3a; E78.2 Mixed hyperlipidemia; M85.80 Other specified disorders of bone density and structure, unspecified site | CPT/HCPCS: 80053; 80061; 82043; 82306; 82570 ==

== ENCOUNTER 2025-02-07 05:15 | Outpatient (CLI) | payer MEDICARE, SELFPAY | END 2025-02-07 05:16 | disposition home or self-care (01) | LOC: NFLDREF 02-08 07:02 | PROVIDERS: PCP Family Medicine; Referring Provider Family Medicine; Visit Provider Family Medicine | DX: R80.9 Proteinuria, unspecified (principal); E11.29 Type 2 diabetes mellitus with other diabetic kidney complication; N18.31 Chronic kidney disease, stage 3a; I12.9 Hypertensive chronic kidney disease with stage 1 through stage 4 chronic kidney disease, or unspecified chronic kidney disease | CPT/HCPCS: 82043; 82570 ==

== ENCOUNTER 2025-04-04 18:57 | Emergency (ER) | payer MEDICARE, SELFPAY ==
--- OUTSIDE RECORDS SUMMARY | 2025-04-04 19:00 | XMS_ITS | Clinical Summary ---
Author Organization [facility] Address [address] [place] [address] Care Team Providers Care Planting Machine Crewman Name Role Phone None Reported, Pcp Primary Care Provider Unavail able Source Comments Patient records contain information from all sites at [facility]. For routine questions regarding patient records, call [phone] during business hours, M-F 8:00 AM - 5:00 PM Central Time. Record requests for emergency care only can be directed to [phone] at any time.[facility] Allergies Active Allergy Reactions Criticality Noted Date Comments Amoxicillin-Pot Clavulanate Other (see comments) 02/03/2010 Tolerated cefazolin preop 02/09/22 Aspirin Other (see comments) 02/03/2010 Atorvastatin Myalgia 02/03/2010 Bee Venom Protein (Honey Bee) Other (see comments) 02/03/2010 Naproxen GI intolerance 02/03/2010 Pollen Extracts Other (see comments) 01/13/2023 Itchy and watery eyes. Simvastatin Other (see comments) 02/03/2010 Sulfa (Sulfonamide Antibiotics) Other (see comments) 02/03/2010 Medications fexofenadine (CHINTAN) 180 mg tablet Take 1 tablet by mouth as needed. 1 Active MULTIVITAMIN WITH MINERALS ORAL Take 1 tablet by mouth daily. 3 Active EPINEPHrine 0.3 mg/0.3 mL injection syringe Inject 0.3 mL (0.3 mg total) under the skin as needed for anaphylaxis. Inject into the thigh. 2 each 1 3 Active hydroCHLOROthia zide (HYDRODIURIL) 25 mg tablet TAKE ONE TABLET BY MOUTH ONCE DAILY 90 tablet 3 3 Active omeprazole (PriLOSEC) [address] capsule TAKE ONE CAPSULE BY MOUTH ONCE DAILY NEEDED 90 capsule 3 3 Active acetaminophen (TYLENOL 8 HR) 650 mg ER tablet Take 1 tablet (650 mg total) by mouth 4 (four) times a day. As needed 3 Active fluticasone propionate (FLONASE) 50 mcg/actuation nasal spray Administer 1 spray into each nostril daily as needed. For seasonal allergies Active lisinopriL (PRINIVIL,ZESTR IL) 40 mg tablet Take 1 tablet (40 mg total) by mouth daily. 90 tablet 1 3 Active metoprolol tartrate (LOPRESSOR) 50 mg tabletIndicatio ns:Hypertensive Chronic Kidney Disease (CKD) Stage 3a Glomerular Filtration Rate (GFR) 45 To 59 (HCC) Take 1.5 tablets (75 mg total) by mouth 2 (two) times a day. 270 tablet 1 3 Active amLODIPine (Norvasc) 5 mg tablet Take 1 tablet (5 mg total) by mouth every evening. Patient needs Office Visit for further refills. 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 Lynch 2 cm Hypertensive Chronic Kidney Disease With Stage 1 Through Stage 4 Chronic Kidney Disease, Or Unspecified Chronic Kidney Disease 02/03/2010 Overview (09/04/2017): Hypertension Rhinitis Allergic 02/03/2010 Degeneration Disc Lumbar 02/03/2010 Overview (09/04/2017): [id number] Diverticulosis Colon 02/03/2010 Overview (09/04/2017): colonoscopy Dysfunction Eustachian Tube Bilateral 02/03/2010 Hyperlipidemia [...] Joint Disorder Right Pain Breast 02/16/2023 Immunizations Immunization Administration Dates Next Due -rabies Immune Globulin 07/08/2020 HZV (ZOSTAVAX) 07/23/2012,07/23/2012 Influenza TIV (IM) 07/08/2020,07/02/2011 Influenza high dose QV(65 ye ars or older) (PF) 07/13/2021 Influenza, Quadrivalent, Adj uvanted, Preservative Free 07/18/2022 Influenza, Seasonal, Injectable 07/24/2007,08/01 Influenza, Unspecified 07/11/2020,2013,07/20/2012,2010 PCV13 10/19/2018,07/02/2006 PPSV23 01/29/2014,11/03/2006,07/02/2006 SARS-COV-2 (COVID-19) - PFIZ ER (Discontinued)(12 years or older) 12/24/2020,12/03/2020 Tdap 01/29/2014 influenza trivalent high dos e (HD)(PF) 08/05/2019,09/07/2018,08/10/2017,2015,07/17/2015 Family History Medical History Relation Name [...] drink = 0.6 oz pur e alcohol) Depression Answer Date Recor ded PHQ-9 Total Score (max 27) 4 02/09 Comments No Sex and Gender Information Value Date Recorded Sex Assigned at Not on file Legal Sex Female 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 Gender Identity Not on file Sexual Orientation Not on file Last Filed Vital Signs Vital Sign Reading Time Taken Comments Blood Pressure 162/57 05/08/2023 10:55 AM CDT Pulse 56 05/08/2023 10:55 AM CDT Temperature 36.2 C (97.2 F) 05/08/2023 10:40 AM CDT Respiratory Rate 12 05/08/2023 10:55 AM CDT [...] Vaccines (1 of 2) 09/17/2012 07/23/2012, 07/03 RSV vaccine - (32-36 weeks) or 60+ years (1 - 1-dose 75+ series) 2016 Office Visit for Blood Pressure Check / Re-check 07/08/2023 04/07/2023 DTaP,Tdap,and Td Vaccines (2 - Td or Tdap) 01/30/2024 01/29/2014 Creatinine Level (Kidney Function Test) 02/20/2024 02/19/2023, 02/18/2023, 01/13/2023, Additional history exists Potassium Level 02/20/2024 02/19/2023, 05/2 , 01/13/2023, Additional history exists Sodium Level 02/20/2024 02/19/2023, 05/2 , 01/13/2023, Additional history exists COVID-19 Vaccine ( season) 2024 07/19/2021, 12/24/2020, 12/03/2020 Depression Screening (Annual PHQ-2) 10/02/2024 Fall Risk Screen (Annual) 10/02/2024 Influenza Vaccine (#1) 2025 , 07/18/2022, 07/13/2021, Additional history exists Colonoscopy Discontinued 12/08/2008 Pneumococcal vaccine (50+ years) Completed 10/19/2018, 01/29/2014, 11/03/2006, Additional history exists Cologuard Discontinued 10/29/2018 Colorectal Cancer Surveillance Discontinued CT Colonography Discontinued IPV Vaccines Aged Out No longer eligi ble based on patient's age to complete this topic Medical Devices Implanted Type Area Hospice Nurse Device Identifier Shelf Expiration Date Model / Serial / Lot Acetabular Shell 3 Hole Implanted:Qty: 1 on 10/22/2020 by Jose Cisneros M.D. at [facility] Hardware e.g. pins/screws /rods Left: Hip [employer] [id number] 07/14/2030 [id number] / / [id number] Scr Trl Acet Ft 6.5x30 - [id number] Implanted:Qty: 1 on 10/22/2020 by Jose Cisneros M.D. at [facility] Hardware e.g. pins/screws /rods Left: Hip [employer] [id number] 05/14/2030-6250-065 -30 / / [id number] Scrw Trl Acet Ft 6.5x30 - [id number] Implanted:Qty: 1 on 10/22/2020 by Jose Cisneros M.D. at [facility] Hardware e.g. pins/screws /rods Left: Hip [employer] [id number] 07/29/20306250-065 -30 / / [id number] Acetabular Liner Implanted:Qty: 1 on 10/22/2020 by Jose Cisneros M.D. at [facility] Hardware e.g. pins/screws /rods Left: Hip [employer] [id number] 10/27/2021 [id number] / / [id number] Taperloc Complete Femoral Stem Implanted:Qty: 1 on 10/22/2020 by Jose Cisneros M.D. at [facility] Hardware e.g. pins/screws /rods Left: Hip [employer] [id number] 06/04/2030 [id number] / / [id number] Hip Head Mod 36 Std - [id number] Implanted:Qty: 1 on 10/22/2020 by Jose Cisneros M.D. at [facility] Hip Implant Left: Hip [employer] [id number] 02/11/2030 [id number] / / [id number] Knee Implant- 3 Implanted:10/10 (Quantity not on file) Knee Implant Right: Knee Description:right total knee arthroplasty Procedures Procedure Name Priority Date/Time Associated Diagnosis Comments BASIC METABOLIC PANEL, S/P Routine 02/19/2023 6:33 AM CDT COLOGUARD Routine 10/29/2018 9:30 AM MALT HOUSE OPERATOR Screening Colon Cancer Average Risk from Last [...] CDT Boy Lion M.D. LAB BLOOD ADD-ON Final R esult [facility] [address] [place] [address], [place] NPRG [facility] [address] [place] [address] * Cologuard - Non RST (10/29/2018 9:30 AM MALT HOUSE OPERATOR) Result Negative Not Applicable 11/08/2018 9:16 AM MALT HOUSE OPERATOR [facility] Comment: A negative result indicates a low [...] Delgado et al, N Engl J Med 2014;370(14):8227-5205)\X0A\ \X0A\COLOGUARD RE-SCREENING RECOMMENDATION: Periodic routine colorectal cancer screening is an important part of preventive healthcare for asymptomatic persons at average risk for colorectal cancer. Following a negative Cologuard result, the [place] Cancer Society and U.S. Multi-Society Task Force screening guidelines recommend a Cologuard re-screening interval of 3 years. \X0A\References: [place] Cancer Society (ACS). Colorectal cancer prevention and early detection. [place], [place]: [place] [employer] Society; [updated 2015Jan 23]. https://www.cancer.org/cancer/iqbhf-okblnr-bjxxnc/detection- diagnosis-staging/acs-recommendations.html. Accessed June 01, 2018; Stephan DK, Merrill CR, Herminio LagosK, Colorectal Cancer Screening: Recommendations for Physicians and Patients from the U.S. Multi-Society Task Force on Colorectal Cancer Screening, Am J Gastroenterology 2017; 112:6302-8061. Test Type: Composite algorithmic analysis of stool DNA-biomarkers with hemoglobin immunoassay. Quantitative values of individual biomarkers are not [...] can be accessed at the following location: [email or web address]/results. Additional description of the Cologuard test process, warnings and precautions can be found at www.cologuardtest.com. Rx Only. Stool (Stool) 10/29/2018 9:3 0 AM MALT HOUSE OPERATOR 10/31/2018 1:50 PM MALT HOUSE OPERATOR us Radha Naik M.D. LAB BODY FLUIDS AND STOOLS ORDERABLES Final Result Performing Organization Address City/State/[facility] Co de Phone Number [facility] [address] [place] [phone] from Last 3 Months or Most Recently Relevant to Health Maintenance Insurance [id number] [phone] [facility] Advance Directives For more information, please contact: [phone] Documents on File Type Date Recorded Patient Traffic I Manager Expl anation Advance Directives 10/19/2018 12:54 PM [facility] Care Directive * Full Code (Latest [...] Second Alternate Health Care Agent Care Teams Planting Machine Crewman Relationship Specialty Start Date End Date None Reported, Pcp PCP - General 08/09/24
[2025-04-04 19:24] VITALS: BP 171/83; PULSE 62; RESP 18; TEMP 36.6; O2SAT 96; BMI 30.1
--- NOTE | 2025-04-04 21:29 | ED.GENADULT ---
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 She formerly lived in [place] but recently moved to live here [facility]. She recently established primary care with [facility], Dr. Kamara. Patient notes that for the past 3 weeks she has noted some clumsiness and weakness in her right hand. It was 1st noted about 3 weeks ago when she was trying to sign her name and felt like she was not able to write neatly or hold the pen properly. The problem is a med present continuously sounds onset but have been getting slowly worse. She now notes that she has trouble printing her words and and difficulty with other tasks such as holding objects. What brought her to the ER tonight was that after she woke up from a nap this evening she had an episode were her right hand was clenched (not shaking her quivering) and she had to use her left hand open her thumb and then each her fingers individually. Since then she has been able to open and closes normally, but it still weak. There is no associated new numbness. She does have some chronic numbness in the thumb and index finger and long finger which she attributes to a reaction to a COVID vaccine after she had her 3rd COVID booster couple of years ago. She apparently had this worked up by her regular doctors in [place] and was thought to have had carpal tunnel syndrome. She had a carpal tunnel release but those symptoms had improved. Her right hand numbness is chronic and not changed from baseline. She has not had any bruising or swelling or discoloration of her hand. No weakness of her elbow or shoulder. No left hand weakness or left symptoms. No facial droop. No slurred speech. No headache. She does occasionally get neck pain but is not having any tonight. Her legs are normal. Related Data Home Medications ?Medication ?Instructions ?Recorded ?Confirmed acetaminophen 650 mg 650 mg PO QID PRN 08/03/23 03/24/25 tablet,extended release fexofenadine 180 mg tablet 180 mg PO DAILY PRN 08/03/23 03/24/25 multivitamin (Multiple Vitamins 1 tab PO QAM 08/03/23 03/24/25 tablet) magnesium 250 mg tablet 250 mg PO QDAY 12/06/23 03/24/25 Previous Rx's ?Medication ?Instructions ?Recorded epinephrine 0.3 mg/0.3 mL 0.3 ml IM .As Needed as needed PRN 07/26/24 injection, auto-injector hypersensitivity reaction #2 ea amlodipine 5 mg tablet 5 mg PO .bedtime #90 tabs 10/09/24 hydrochlorothiazide 25 mg tablet 25 mg PO DAILY #90 tabs 10/09/24 lisinopril 40 mg tablet 40 mg PO QDAY #90 tabs 10/09/24 metoprolol tartrate 50 mg tablet 75 mg (1.5 x 50 mg) PO BID #270 10/09/24 tabs omeprazole 20 mg capsule,delayed 20 mg PO QDAY #90 caps 10/09/24 release rosuvastatin 5 mg tablet 5 mg PO QDAY #90 tabs 02/12/25 cyclobenzaprine 5 mg tablet 5 mg PO QHS #10 tabs 03/03/25 Allergies Allergy/AdvReac Type Severity Reaction Status Date / Time amoxicillin (From Augmentin) Allergy Intermediate Rash Verified 03/24/25 15:37 aspirin Allergy Intermediate Gastrointestinal Verified 03/24/25 15:37 Upset clavulanic acid (From Allergy Intermediate Rash Verified 03/24/25 15:37 Augmentin) cortisone Allergy Intermediate Rash Verified 03/24/25 15:37 naproxen Allergy Intermediate Gastrointestinal Verified 03/24/25 15:37 Upset Sulfa (Sulfonamide Allergy Intermediate Rash Verified 03/24/25 15:37 Antibiotics) atorvastatin (From Lipitor) Allergy Mild Muscle Pain Verified 03/24/25 15:37 bee venom protein (honey bee) Allergy Unknown Unknown Verified 03/24/25 15:37 simvastatin (From Zocor) Allergy Unknown Chest Pain Verified 03/24/25 15:37 [facility] Medical History (Updated 04/04/25 @ 23:53 by Trenton Rollins MD) Pre-diabetes (12/06/23) ?R73.03 - Prediabetes (ICD-10) White coat syndrome with diagnosis of hypertension ?I10 - Essential (primary) hypertension (ICD-10) Osteopenia (04/02/24) ?M85.80 - Other specified disorders of bone density and structure, unspecified site (ICD-10) 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 ?I12.9 - Hypertensive chronic kidney disease with stage 1 through stage 4 chronic kidney disease, or unspecified chronic kidney disease (ICD-10) ?N18.30 - Chronic kidney disease, stage 3 unspecified (ICD-10) Spondylosis of thoracolumbar spine ?M47.815 - Spondylosis without myelopathy or radiculopathy, thoracolumbar region (ICD-10) Rosacea ?L71.9 - Rosacea, unspecified (ICD-10) History of SCC (squamous cell carcinoma) of skin ?Z85.828 - Personal history of other malignant neoplasm of skin (ICD-10) Allergic rhinitis ?J30.9 - Allergic rhinitis, unspecified (ICD-10) Urinary, incontinence, stress female ?N39.3 - Stress incontinence (female) (male) (ICD-10) History of Helicobacter pylori infection (2010) ?Z86.19 - Personal history of other infectious and parasitic diseases (ICD-10) Diverticulosis ?K57.90 - Diverticulosis of intestine, part unspecified, without perforation or abscess without bleeding (ICD-10) Pulmonary nodules (~01/2023) ?R91.8 - Other nonspecific abnormal finding of lung field (ICD-10) Hyperlipidemia ?E78.5 - Hyperlipidemia, unspecified (ICD-10) Elevated lipase ?R74.8 - Abnormal levels of other serum enzymes (ICD-10) GERD (gastroesophageal reflux disease) ?K21.9 - Gastro-esophageal reflux disease without esophagitis (ICD-10) Hypertension ?I10 - Essential (primary) hypertension (ICD-10) Surgical History (Updated 08/03/23 @ 11:06 by Nadira Sy MD) History of repair of rotator cuff (1999) ?Z98.890 - Other specified postprocedural states (ICD-10) History of carpal tunnel release ?Z98.890 - Other specified postprocedural states (ICD-10) History of cholecystectomy (2008) ?Z90.49 - Acquired absence of other specified parts of digestive tract (ICD-10) History of section ?Z98.891 - History of uterine scar from previous surgery (ICD-10) History of cyst of breast (1997) ?Z87.2 - Personal history of diseases of the skin and subcutaneous tissue (ICD-10) History of total bilateral knee replacement ?Z96.653 - Presence of artificial knee joint, bilateral (ICD-10) 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) ?Z96.642 - Presence of left artificial hip joint (ICD-10) Family History (Updated 08/03/23 @ 12:12 by Nadira Sy MD) Father Myocardial infarction, Onset Age: 66 Brother Myocardial infarction Brother Colon cancer, Onset Age: 56 Lung cancer Sister Glaucoma Social History (Updated 10/09/24 @ 14:06 by Elsi Mcduffie ~ [facility]) Narrative: , 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[place], 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, lives in independent living [place] Never smoker Does not drink any alcohol Walks a hallway 1/2 M daily What is your current living situation?: I presently have a place to live Problems where you live: declined to answer In the past 12 months, utilities in danger of being shut off: no In past 12 months, lack of transportation kept you from medical appts, meetings, work, or getting things needed for daily living: no In the past 12 mos, have been you worried that your food would run out before you had money to buy more?: never true In the past 12 mos, the food you bought just didn't last and you didn't have money to buy more?: never true Smoking Status: Never smoker How often do you have a drink containing alcohol: never AUDIT-C Alcohol total score: 0 Non-prescribed substance use: denies use How often does anyone, including family, friends and others, physically hurt you: never How often does anyone, including family, friends and others, insult or talk down to you: never How often does anyone, including family, friends and others, threaten you with harm: never How often does anyone, including family, friends and others, scream or curse at you: never Exam Narrative: Exam Narrative: Constitutional: Appears well-developed and well-nourished. Alert. Conversant. Non toxic. HENT: Head: Atraumatic. Nose: Nose normal. Mouth/Throat: Oral mucosa is clear and moist. no trismus. Pharynx normal. Tonsils symmetric. No tonsillar enlargement, erythema, or exudate. Eyes: Conjunctivae normal. EOM normal. Pupils equal, round, and reactive to light. No scleral icterus. Neck: Normal range of motion. Neck supple. No tracheal deviation present. Cardiovascular: Normal rate, regular rhythm. No gallop. No friction rub. No murmur heard. Symmetric radial artery pulses Pulmonary/Chest: Effort normal. No stridor. No respiratory distress. No wheezes. No rales. No rhonchi . No tenderness. Abdominal: Soft. Bowel sounds normal. No distension. No mass. No tenderness. No rebound. No guarding. Musculoskeletal: RUE: Normal range of motion. No tenderness. No deformity LUE: Normal range of motion. No tenderness. No deformity RLE: Normal range of motion. No edema. No tenderness. No deformity LLE: Normal range of motion. No edema. No tenderness. No deformity Lymph: No cervical adenopathy. Neurological: Mental status normal. Attention normal. Alert and oriented x3. GCS 15. Memory normal. Speech fluent. Cognition normal. Cranial Nerves intact II-XII except I did not formally test gag or visual acuity. EOMI. Palate elevates symmetrically and tongue protrudes in the midline. Strength: 5/5 trapezius on the right and left 5/5 deltoid on the right and left 5/5 biceps on the right and left 5/5 triceps on the right and left 5/5 founding partner on the left. 4+/5 on the right. 5/5 thumb opposition on the left. 4+/5 on the right 5/5 finger abduction on the right and left 5/5 bilateral wrist flexion and wrist extension. Normal strength with pronation and supination of each forearm. 5/5 hip flexors (L3) on the right and left 5/5 quadriceps (L4) on the right and left 5/5 tibialis anterior on the right and left 5/5 EHL (L5) on the right and left 5/5 gastrocnemius (S1) on the right and left 5/5 hamstring on the right and left Sensation intact to light touch in both upper extremities (C4-T1) Sensation intact to light touch in Both lower extremities (L4-S1). Finger to nose and coordination normal. Gait normal. Skin: Skin is warm and dry. No rash noted. No pallor. Normal capillary refill. Psychiatric: Normal mood. Normal affect. Const: Vital Signs, click to edit/add: Vital Signs - 24 hr 04/04/25 19:24 Temperature 97.9 F Pulse Rate [Pulse Oximeter] 62 Respiratory Rate 18 Blood Pressure [Ri ght Upper Arm] 171/83 H Pulse Oximetry 96 Oxygen Delivery Me thod Room Air Course Vital Signs Vital signs: Initial Vital Signs Temperature 97.9 F 04/04/25 19:24 Temperature Source Temporal Artery Scan 04/04/25 19:24 Pulse Rate 62 04/04/25 19:24 Pulse Rhythm Regular 04/04/25 19:24 Respiratory Rate 18 04/04/25 19:24 Blood Pressure 171/83 H 04/04/25 19:24 Blood Pressure Mean 112 H 04/04/25 19:24 Blood Pressure Position Sitting 04/04/25 19:24 Pulse Oximetry 96 04/04/25 19:24 Oxygen Delivery Method Room Air 04/04/25 19:24 Vital Signs Temperature 97.9 F 04/04/25 19:24 Pulse Rate 62 04/04/25 19:24 Respiratory Rate 18 04/04/25 19:24 Blood Pressure 171/83 H 04/04/25 19:24 Pulse Oximetry 96 04/04/25 19:24 Oxygen Delivery Method Room Air 04/04/25 19:24 Temperature 97.9 F 04/04/25 19:24 Pulse Rate 62 04/04/25 19:24 Respiratory Rate 18 04/04/25 19:24 Blood Pressure 171/83 H 04/04/25 19:24 Pulse Oximetry 96 04/04/25 19:24 Oxygen Delivery Method Room Air 04/04/25 19:24 Medical Decision Making MDM Narrative Medical decision making narrative: This is a pleasant 84-year-old female presenting to the ER tonight with her daughter with concern for a 3 week history of slowly worsening clumsiness in her right hand. Is not really weak but she is just having trouble doing fine motor skills. No symptoms affecting her left hand. Tonight she had an episode where the right hand was clenched for a few minutes after she woke up from a nap prompting her visit to the ER. Differential is broad. With the clenching episode tonight consider possible seizure although with 3 weeks of continuous symptoms that seems unlikely to represent partial seizures. She is not having any tremor or clear seizure motor activity here. This point I do not think she needs to be initiated on anti epileptics. I am more concerned about possible stroke. Patient would need MRI of her brain for for proper workup that is not available here in the ER on the evening of the 04 of April holiday. We did do a noncontrast head CT which is fortunately negative for hemorrhage. Noncontrast head CT also shows no evidence for any subacute stroke. Also no evidence for any large of some tumor. Discussed with the patient and her daughter that although CT scan is normal it is not definitively reassuring and she needs MRI. Terms of stroke workup, with 3 weeks of symptoms, the cost inconvenience of hospitalization are likely to outweigh the benefit from hospitalization for emergent MRI or transfer to the [facility] for MRI emergently tonight. She will follow-up with PCP in clinic next week to arrange MRI of her brain and C-spine. If that is normal may also need referral to Neurology for EMG testing. Screening laboratory workup here in the ER is reassuring. EKG shows sinus rhythm and no ischemia. Precautions for return to the ER reviewed. Lab Data Labs: Lab Results 04/04/25 Range/Units 22:18 WBC 11.16 H (4.50-11.00) K/uL RBC 4.45 (4.00-5.20) m/uL Hgb 13.4 (12.0-16.0) gm/dL Hct 40.4 (33.0-51.0) % MCV 91 (80-100) fL MCH 30 (26-34) pg MCHC 33 (32-36) gm/dL RDW Coeff of Sumi 12.6 (11.5-15.5) % Plt Count 299 (140-440) K/uL Neut % (Auto) 57.5 (42.0-72.0) % Lymph % (Auto) 29.4 (20-44) % [place] % (Auto) 9.4 (0.0-11.0) % Eos % (Auto) 3.0 (0.0-7.0) % Baso % (Auto) 0.4 (0.0-3.0) % Neut # (Auto) 6.40 (1.7-7.0) K/uL Lymph # (Auto) 3.30 H (0.90-2.90) K/uL [place] # (Auto) 1.00 H (0.00-0.90) K/UL Eos # (Auto) 0.30 (0.00-0.50) K/uL Baso # (Auto) 0.00 (0.00-0.30) K/uL Abs Immat Gran (auto) 0.00 (0.00-0.30) K/uL Imm/Tot Granulo (auto) 0.3 % INR 0.89 L (0.91-1.10) Sodium 138 (135-149) mmol/L Potassium 4.3 (3.6-5.1) mmol/L Chloride 103 (96-114) mmol/L Carbon Dioxide 25 (20-32) mmol/L Anion Gap 10 (7-15) mEq/L BUN 33 H (7-30) mg/dL Creatinine 1.2 (0.5-1.5) mg/dL Estimated Creat Clear 30.67 Estimated GFR 45 ml/min Glucose 142 H (60-115) mg/dL Calcium 10.1 (8.4-10.6) mg/dL Imaging Data CT scan - head: Attestation: I have reviewed the pertinent imaging results. Radiologist's impression: IMPRESSION: 1. No acute intracranial findings. 2. Mild generalized parenchymal volume loss with chronic microvascular ischemic changes. ECG Data Attestation: I personally reviewed and interpreted this ECG as follows: Interpretation: Normal sinus rhythm Rate 63 KY interval 138 Normal QRS axis. No pathologic Q-waves. No ST segment elevation or depression. QTC 423 Discharge Plan Discharge Clinical Impression: Right hand weakness Patient Disposition: Home, Self-Care Condition: Stable Instructions: Weakness (ED) Additional Instructions: As we discussed, right now the cause for your right hand clumsiness is not clear. You need further workup. Please follow-up with your primary care provider, Dr. Long for, or someone from her clinic on Monday or Monday. When you call the clinical quality assurance specialist, please tell them you came to the ER and need an ER follow-up visit. I suggest that you talk to your doctor about getting an MRI of your brain and of your cervical spine to look for a potential cause for the clumsiness in your right hand. If those tests are normal, we will likely need a referral to Neurology for further testing with EMG. If you have any worsening symptoms or concerns, please return to the ER right away. Activity Level: No Restrictions Discharge Diet: Regular Prescriptions: No Action magnesium 250 mg tablet 250 mg PO QDAY amlodipine 5 mg tablet 5 mg PO .bedtime Qty: 90 3RF hydrochlorothiazide 25 mg tablet 25 mg PO DAILY Qty: 90 3RF lisinopril 40 mg tablet 40 mg PO QDAY Qty: 90 3RF metoprolol tartrate 50 mg tablet 75 mg PO BID Qty: 270 3RF omeprazole 20 mg capsule,delayed release(DR/EC) 20 mg PO QDAY Qty: 90 3RF fexofenadine 180 mg tablet 180 mg PO DAILY PRN multivitamin [Multiple Vitamins] Tablet 1 tab PO QAM acetaminophen 650 mg tablet extended release 650 mg PO QID PRN rosuvastatin 5 mg tablet 5 mg PO QDAY Qty: 90 3RF cyclobenzaprine 5 mg tablet 5 mg PO QHS Qty: 10 0RF epinephrine 0.3 mg/0.3 mL auto-injector 0.3 ml IM .As Needed as needed PRN (Reason: hypersensitivity reaction) Qty: 2 1RF Follow Up/Referrals: Nadira Sy MD [Primary Care Provider, Family Practice] Stand Alone Forms: [email or web address] Info Instructions
--- NOTE | 2025-04-04 22:04 | CRLHL7_ITS ---
For Patients: As a result of the Century Cures Act, medical imaging exams and procedure reports are released immediately into your electronic medical record. You may view this report before your referring provider. If you have questions, please contact your health care provider. TECHNIQUE: Multiplanar CT examination of the head was performed without the use of intravenous contrast. INDICATION: Right hand weakness. COMPARISON: None. FINDINGS: No loss of le-white differentiation to suggest recent territorial infarct. No intracranial hemorrhage, abnormal extra-axial fluid collection, hydrocephalus or midline shift. The ventricles and cerebral sulci are prominent in caliber, compatible with mild generalized parenchymal volume loss. There is patchy hypoattenuation of the supratentorial white matter diffusely, nonspecific but consistent chronic microvascular ischemic changes. The basal cisterns are patent. Partially empty sella turcica. The paranasal sinuses and mastoid air cells remain clear. Postoperative changes of the globes bilaterally. The orbits and calvarium are unremarkable. The cerebellar tonsils are normal position. IMPRESSION: 1. No acute intracranial findings. 2. Mild generalized parenchymal volume loss with chronic microvascular ischemic changes. Please note that all CT scans at this facility use dose modulation, iterative reconstruction, and/or weight-based dosing when appropriate to reduce radiation dose to as low as reasonably achievable. Dictated by Thor Hamilton MD @ 04/04/2025 10:44:10 PM (Electronically Signed)
[2025-04-04 22:30] LABS: Hematocrit 40.4 % (33.0-51.0); Hemoglobin* 13.4 gm/dL (12.0-16.0); Immature Granulocytes Pct Auto 0.3 %; Mean Corpuscular HGB Conc 33 gm/dL (32-36); Mean Corpuscular Hemoglobin 30 pg (26-34); Mean Corpuscular Volume 91 fL (80-100); RDW Coefficient of Variation % 12.6 % (11.5-15.5); Red Blood Count 4.45 m/uL (4.00-5.20); White Blood Count* 11.16 K/uL (4.50-11.00)
[2025-04-04 22:31] LABS: Immature Granulocytes Abs Auto 0.00 K/uL (0.00-0.30); Lymphocytes Absolute Auto 3.30 K/uL (0.90-2.90); Slide Review Reflex No
[2025-04-04 22:45] LABS: Chloride* 103 mmol/L (96-114); Sodium* 138 mmol/L (135-149)
[2025-04-04 22:46] LABS: Potassium* 4.3 mmol/L (3.6-5.1)
[2025-04-04 22:48] LABS: Blood Urea Nitrogen* 33 mg/dL (7-30); Creatinine* 1.2 mg/dL (0.5-1.5); Est. Creatinine Clearance* 30.67; Estimated Glomerular Filt Rate 45 ml/min; INR 0.89 (0.91-1.10); Prothrombin Time 12.8 Seconds
[2025-04-04 22:49] LABS: Anion Gap 10 mEq/L (7-15); Calcium* 10.1 mg/dL (8.4-10.6); Carbon Dioxide* 25 mmol/L (20-32); Glucose* 142 mg/dL (60-115)
--- NOTE | 2025-04-05 00:04 | ED.NURSE ---
The IV placed during visit
== END 2025-04-05 00:02 | disposition home or self-care (01) ==
PROVIDERS: Emergency Provider Emergency Medicine; PCP Family Medicine
DX: M79.641 Pain in right hand (principal)
CPT/HCPCS: 36415; 70450; 80048; 85025; 85610; 93005; 99283; 99284

== ENCOUNTER 2025-04-06 02:02 | Emergency (ER) | payer MEDICARE, SELFPAY ==
--- OUTSIDE RECORDS SUMMARY | 2025-04-06 02:04 | XMS_ITS | Clinical Summary ---
Author Organization [facility] Address [address] [place] [address] Care Team Providers Care Career Coordinator Name Role Phone None Reported, Pcp Primary Care Provider Unavail able Source Comments Patient records contain information from all sites at [facility]. For routine questions regarding patient records, call [phone] during business hours, M-F 8:00 AM - 5:00 PM Central Time. 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 Lynch 2 cm Hypertensive Chronic Kidney Disease With Stage 1 Through Stage 4 Chronic Kidney Disease, Or Unspecified Chronic Kidney Disease 02/03/2010 Overview (09/04/2017): Hypertension Rhinitis Allergic 02/03/2010 Degeneration Disc Lumbar 02/03/2010 Overview (09/04/2017): [id number] Diverticulosis Colon 02/03/2010 Overview (09/04/2017): colonoscopy Dysfunction [...] on file Legal Sex Female 11:11 PM FLAGSETTER Gender Identity Not on file Sexual Orientation [...] this topic Medical Devices Implanted Type Area Lapper Device Identifier Shelf Expiration Date Model / Serial / Lot Acetabular Shell 3 Hole Implanted:Qty: 1 on 10/22/2020 by Jose Cisneros M.D. at [facility] Hardware e.g. pins/screws /rods Left: Hip [employer] [id number] 07/14/2030 [id number] / / [id number] Scr Trl Acet Ft 6.5x30 - [id number] Implanted:Qty: 1 on 10/22/2020 by Jose Cisneros M.D. at [facility] Hardware e.g. pins/screws /rods Left: Hip [employer] [id number] 05/14/2030-6250-065 -30 / / [id number] Scrw Trl Acet Ft 6.5x30 - [id number] Implanted:Qty: 1 on 10/22/2020 by Jose Cisneros M.D. at [facility] Hardware e.g. pins/screws /rods Left: Hip [employer] [id number] 07/29/20306250-065 -30 / / [id number] Acetabular Liner Implanted:Qty: 1 on 10/22/2020 by Jose Cisneros M.D. at [facility] Hardware e.g. pins/screws /rods Left: Hip [employer] [id number] 10/27/2021 [id number] / / [id number] Taperloc Complete Femoral Stem Implanted:Qty: 1 on 10/22/2020 by Jose Cisneros M.D. at [facility] Hardware e.g. pins/screws /rods Left: Hip [employer] [id number] 06/04/2030 [id number] / / [id number] Hip Head Mod 36 Std - [id number] Implanted:Qty: 1 on 10/22/2020 by Jose Cisneros M.D. at [facility] Hip Implant Left: Hip [employer] [id number] 02/11/2030 [id number] / / [id number] Knee Implant- 3 Implanted:10/10 (Quantity not on file) Knee Implant Right: Knee Description:right total knee arthroplasty Procedures Procedure Name Priority Date/Time Associated Diagnosis Comments BASIC METABOLIC PANEL, S/P Routine 02/19/2023 6:33 AM CDT COLOGUARD Routine 10/29/2018 9:30 AM FLAGSETTER Screening Colon Cancer Average Risk from Last [...] M.D. LAB BLOOD ADD-ON Final R esult [facility] [address] [place] [address], [place] NPRG [facility] [address] [place] [address] * Cologuard - Non RST (10/29/2018 9:30 AM FLAGSETTER) Result Negative Not Applicable 11/08/2018 9:16 AM FLAGSETTER [place] Comment: A negative result indicates a low [...] Delgado et al, N Engl J Med 2014;370(14):[id number])\X0A\ \X0A\COLOGUARD RE-SCREENING RECOMMENDATION: Periodic routine colorectal cancer screening is an important part of preventive healthcare for asymptomatic persons at average risk for colorectal cancer. Following a negative Cologuard result, the [place] [employer] and U.S. Multi-Society Task Force screening guidelines recommend a Cologuard re-screening interval of 3 years. \X0A\References: [place] [employer] Society (ACS). Colorectal cancer prevention and early detection. [place], [place]: [place]; [updated 2015Jan 23]. https://www.cancer.org/cancer/bmgub-egdkcl-icpgpv/detection- diagnosis-staging/acs-recommendations.html. Accessed June 01, 2018; Stephan DK, Merrill CR, Herminio LagosK, Colorectal Cancer Screening: Recommendations for Physicians and Patients from the U.S. Multi-Society Task Force on Colorectal Cancer Screening, Am J Gastroenterology 2017; 112:1991-9455. Test Type: Composite algorithmic analysis of stool [...] can be accessed at the following location: [email or web address]. Additional description of the Cologuard test process, warnings and precautions can be found at [email or web address].com. Rx Only. Stool (Stool) 10/29/2018 9:3 0 AM FLAGSETTER 10/31/2018 1:50 PM FLAGSETTER us Radha Naik M.D. LAB BODY FLUIDS AND STOOLS ORDERABLES Final Result Performing Organization Address City/State/[facility] Co de Phone Number [facility] [address] [place] [id number] from Last 3 Months or Most Recently Relevant to Health Maintenance Insurance [id number] [id number] [facility] Advance Directives For more information, please contact: [phone] Documents on File Type Date Recorded Patient Brake Coupler Dinkey Expl anation Advance Directives 10/19/2018 12:54 PM a [facility] Care Directive * Full Code (Latest Code [...] Second Alternate Health Care Agent Care Teams Career Coordinator Relationship Specialty Start Date End Date None Reported, Pcp PCP - General 08/09/24
[2025-04-06 02:15] VITALS: BP 176/90; PULSE 65; RESP 16; TEMP 36.1; O2SAT 95
--- NOTE | 2025-04-06 03:12 | ED.GENADULT ---
HPI - General Adult General Chief complaint: Unspecified Complaint, Adult Stated complaint: right hand tightened into a ball Time Seen by Provider: 04/06/25 02:50 Source: patient Mode of arrival: ambulatory Limitations: no limitations History of Present Illness HPI narrative: 84-year-old female presents the emergency department with a repeat episode of hand spasm. Patient has been having intermittent symptoms over the last 3 weeks. Was evaluated in the ED 2 days ago, extensive workup including head CT, appropriate labs were performed. Patient was advised to follow up with her primary care provider for MRI, EMG a.m. potentially neurology consult. Patient has extensive osteoarthritis of multiple sites also gets similar episodes in her feet. CT was reassuring. EKG showed normal sinus rhythm with no ischemia. She had a normal calcium level. She does not have a history of thyroid or parathyroid disease. Patient reports that she was told to come back to the ED if she had another episode. That is not what was mentioned in her discharge paperwork. She reports that she was awoken from sleep at 11:00 p.m. with an episode that lasted about 30 seconds and she was able to free her hand. She has absolutely no residual symptoms now. Spasm feeling in the palm of her hand with difficulty opening her hand, lasting less than a minute as described. Right hand only, forearm, upper arm and neck not affected. No pain currently. No new trauma or injury. No changes in medications or health status since her evaluation 2 days ago. Previous workup extensively reviewed. She has new or to our health system, recently moving into [facility], previous care has been in [place]. Allergies and medications reviewed, unchanged from 2 days ago. Nonsmoker. ROS is notable only for the neurological and musculoskeletal changes as above, now all relieved. Otherwise denies times 12 systems. Related Data Home Medications ?Medication ?Instructions ?Recorded ?Confirmed acetaminophen 650 mg 650 mg PO QID PRN 08/03/23 03/24/25 tablet,extended release fexofenadine 180 mg tablet 180 mg PO DAILY PRN 08/03/23 03/24/25 multivitamin (Multiple Vitamins 1 tab PO QAM 08/03/23 03/24/25 tablet) magnesium 250 mg tablet 250 mg PO QDAY 12/06/23 03/24/25 Previous Rx's ?Medication ?Instructions ?Recorded epinephrine 0.3 mg/0.3 mL 0.3 ml IM .As Needed as needed PRN 07/26/24 injection, auto-injector hypersensitivity reaction #2 ea amlodipine 5 mg tablet 5 mg PO .bedtime #90 tabs 10/09/24 hydrochlorothiazide 25 mg tablet 25 mg PO DAILY #90 tabs 10/09/24 lisinopril 40 mg tablet 40 mg PO QDAY #90 tabs 10/09/24 metoprolol tartrate 50 mg tablet 75 mg (1.5 x 50 mg) PO BID #270 10/09/24 tabs omeprazole 20 mg capsule,delayed 20 mg PO QDAY #90 caps 10/09/24 release rosuvastatin 5 mg tablet 5 mg PO QDAY #90 tabs 02/12/25 cyclobenzaprine 5 mg tablet 5 mg PO QHS #10 tabs 03/03/25 Allergies Allergy/AdvReac Type Severity Reaction Status Date / Time amoxicillin (From Augmentin) Allergy Intermediate Rash Verified 03/24/25 15:37 aspirin Allergy Intermediate Gastrointestinal Verified 03/24/25 15:37 Upset clavulanic acid (From Allergy Intermediate Rash Verified 03/24/25 15:37 Augmentin) cortisone Allergy Intermediate Rash Verified 03/24/25 15:37 naproxen Allergy Intermediate Gastrointestinal Verified 03/24/25 15:37 Upset Sulfa (Sulfonamide Allergy Intermediate Rash Verified 03/24/25 15:37 Antibiotics) atorvastatin (From Lipitor) Allergy Mild Muscle Pain Verified 03/24/25 15:37 bee venom protein (honey bee) Allergy Unknown Unknown Verified 03/24/25 15:37 simvastatin (From Zocor) Allergy Unknown Chest Pain Verified 03/24/25 15:37 [facility] Medical History Pre-diabetes (12/06/23) ?R73.03 - Prediabetes (ICD-10) White coat syndrome with diagnosis of hypertension ?I10 - Essential (primary) hypertension (ICD-10) Osteopenia (04/02/24) ?M85.80 - Other specified disorders of bone density and structure, unspecified site (ICD-10) 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 ?I12.9 - Hypertensive chronic kidney disease with stage 1 through stage 4 chronic kidney disease, or unspecified chronic kidney disease (ICD-10) ?N18.30 - Chronic kidney disease, stage 3 unspecified (ICD-10) Spondylosis of thoracolumbar spine ?M47.815 - Spondylosis without myelopathy or radiculopathy, thoracolumbar region (ICD-10) Rosacea ?L71.9 - Rosacea, unspecified (ICD-10) History of SCC (squamous cell carcinoma) of skin ?Z85.828 - Personal history of other malignant neoplasm of skin (ICD-10) Allergic rhinitis ?J30.9 - Allergic rhinitis, unspecified (ICD-10) Urinary, incontinence, stress female ?N39.3 - Stress incontinence (female) (male) (ICD-10) History of Helicobacter pylori infection (2010) ?Z86.19 - Personal history of other infectious and parasitic diseases (ICD-10) Diverticulosis ?K57.90 - Diverticulosis of intestine, part unspecified, without perforation or abscess without bleeding (ICD-10) Pulmonary nodules (~01/2023) ?R91.8 - Other nonspecific abnormal finding of lung field (ICD-10) Hyperlipidemia ?E78.5 - Hyperlipidemia, unspecified (ICD-10) Elevated lipase ?R74.8 - Abnormal levels of other serum enzymes (ICD-10) GERD (gastroesophageal reflux disease) ?K21.9 - Gastro-esophageal reflux disease without esophagitis (ICD-10) Hypertension ?I10 - Essential (primary) hypertension (ICD-10) Surgical History History of repair of rotator cuff (1999) ?Z98.890 - Other specified postprocedural states (ICD-10) History of carpal tunnel release ?Z98.890 - Other specified postprocedural states (ICD-10) History of cholecystectomy (2008) ?Z90.49 - Acquired absence of other specified parts of digestive tract (ICD-10) History of section ?Z98.891 - History of uterine scar from previous surgery (ICD-10) History of cyst of breast (1997) ?Z87.2 - Personal history of diseases of the skin and subcutaneous tissue (ICD-10) History of total bilateral knee replacement ?Z96.653 - Presence of artificial knee joint, bilateral (ICD-10) 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) ?Z96.642 - Presence of left artificial hip joint (ICD-10) Family History Father Myocardial infarction, Onset Age: 66 Brother Myocardial infarction Brother Colon cancer, Onset Age: 56 Lung cancer Sister Glaucoma Social History Narrative: , 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[place], 6 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, lives in independent living [place] Never smoker Does not drink any alcohol Walks a hallway 1/2 M daily What is your current living situation?: I presently have a place to live Problems where you live: declined to answer In the past 12 months, utilities in danger of being shut off: no In past 12 months, lack of transportation kept you from medical appts, meetings, work, or getting things needed for daily living: no In the past 12 mos, have been you worried that your food would run out before you had money to buy more?: never true In the past 12 mos, the food you bought just didn't last and you didn't have money to buy more?: never true Smoking Status: Never smoker Do you use any of these nicotine containing products: None Second hand tobacco smoke exposure: No How often do you have a drink containing alcohol: never AUDIT-C Alcohol total score: 0 Non-prescribed substance use: denies use How often does anyone, including family, friends and others, physically hurt you: never How often does anyone, including family, friends and others, insult or talk down to you: never How often does anyone, including family, friends and others, threaten you with harm: never How often does anyone, including family, friends and others, scream or curse at you: never service: No Exam Const: Vital Signs, click to edit/add: Vital Signs - 24 hr 04/06/25 02:15 Temperature 96.9 F L Pulse Rate [Right Pulse Oximeter] 65 Respiratory Rate 16 Blood Pressure [Le ft Upper Arm] 176/90 H Pulse Oximetry 95 Oxygen Delivery Me thod Room Air Documenting provider has reviewed patient's vital signs: yes Common normals: no apparent distress and alert General appearance: cooperative and well kempt HENMT: Common normals: normocephalic, moist oral mucous membranes and oropharynx normal Head and scalp: normocephalic Eye: Common normals: PERRL and EOMs intact bilaterally Pupil: PERRL Neck & C-Spine: Common normals: full ROM and no lymphadenopathy Other: Some mild paraspinal muscle tightness but no point bony tenderness to the cervical spine or step-offs noted. Resp: Common normals: normal respiratory effort, no use of accessory muscles and clear to auscultation bilaterally Effort & inspection: able to speak in complete sentences Auscultation: clear to auscultation bilaterally Cardio: Common normals: regular rate, regular rhythm, S1 normal heart sound, S2 normal heart sound and no murmurs Rate: regular rate Rhythm: regular rhythm Heart sounds: S1 normal and S2 normal Extremity: Other: Extensive osteoarthritic changes to both hands. Muscle wasting of thenar and hypothenar eminence bilaterally. Muscle strength is +5/5 in both hands and wrists with no focal deficits to any nerve root or distinct dermatome distribution. Also has normal strength both wrists, elbows, shoulders bilaterally. Normal sensation. Neuro: Common normals: moves all extremities and no focal motor deficits Sensorium/orientation: alert Speech: speech normal Gait (neuro): normal gait Psych: Common normals: thought process normal Appearance: well kempt Attitude: engaged Activity/motor behavior: appropriate eye contact Thought process: normal thought process Insight: insight good Judgement: judgment good Skin: Common normals: no rashes or lesions noted General skin exam: no rashes or lesions noted Course Course ED Course: 84-year-old female with carpal spasm. No evidence of hypocalcemia, thyroid disease, electrolyte abnormality, dehydration or stroke-like process. Most likely osteoarthritic in nature but I can not tell if she is having primarily impingement episodes of the cervical spine, wrist or more peripherally. Counseled patient that these are unfortunate but do not need any emergent care unless she is unable to get her hand to loosen within 30 minutes. Rationale discussed. I do recommend she keep her follow-up appointments for further workup that cannot be performed in the emergency department in the middle of the night. I did discuss with her that it may be difficult to find a good treatment option but sometimes wrist braces and muscle relaxants such as baclofen at night can be helpful. She is welcome to try NSAIDs at night to reduce her symptoms. She would like to keep her follow-up and discuss further with primary physician and possibly with neurologist prior to initiating any treatment and I agree with this plan. Alarm symptoms that would warrant ED presentation in the middle of the night are reviewed. Vital Signs Vital signs: Initial Vital Signs Temperature 96.9 F L 04/06/25 02:15 Temperature Source Temporal Artery Scan 04/06/25 02:15 Pulse Rate 65 04/06/25 02:15 Respiratory Rate 16 04/06/25 02:15 Blood Pressure 176/90 H 04/06/25 02:15 Blood Pressure Mean 118 H 04/06/25 02:15 Blood Pressure Position Sitting 04/06/25 02:15 Pulse Oximetry 95 04/06/25 02:15 Oxygen Delivery Method Room Air 04/06/25 02:15 Vital Signs Temperature 96.9 F L 04/06/25 02:15 Pulse Rate 65 04/06/25 02:15 Respiratory Rate 16 04/06/25 02:15 Blood Pressure 176/90 H 04/06/25 02:15 Pulse Oximetry 95 04/06/25 02:15 Oxygen Delivery Method Room Air 04/06/25 02:15 Temperature 96.9 F L 04/06/25 02:15 Pulse Rate 65 04/06/25 02:15 Respiratory Rate 16 04/06/25 02:15 Blood Pressure 176/90 H 04/06/25 02:15 Pulse Oximetry 95 04/06/25 02:15 Oxygen Delivery Method Room Air 04/06/25 02:15 Discharge Plan Discharge Clinical Impression: Hand or foot spasms Patient Disposition: Home w/ Parent or Adult Condition: Improved Instructions: Muscle Spasm (ED) Additional Instructions: As we discussed, these spasms in the hands and also happen to come in the feet for many people, are caused by sensitivity and irritation to the nerves. In your case, we did not see any signs of stroke or blood work abnormalities that were contributing. In your case, it is most likely from arthritis pressing on the nerves. Exam does show pretty advanced arthritis in multiple sites on your body which of course is no surprise to you. We may be able to help prevent these episodes if we can identify where the nerve irritation is coming from. It may be getting compressed at the neck, the shoulder or more at the wrist level. There may be long-term nerve injury that may not be able to be helped but it is important that we clarify this to give you some relief. I completely agree with the workup that was already done by Dr. Rollins. Please make a follow-up appointment with your primary care provider to discuss MRI and EMG for further workup. We may be able to get you some relief with wrist braces and muscle relaxants like baclofen at bedtime. It is important that we know more information 1st before we decide what to prescribed. Muscle relaxants can cause a lot of unsteadiness on your feet, fatigue and even some confusion in older people. Because of this, it is important that we consider these carefully when deciding if they are right for you long-term. These episodes are likely to continue to happen and you do not need to come to the emergency department unless they are not resolving within about 30 minutes. Try to shake and loosen the hand if you can. It is okay to use the other hand to pry things open. Placing the hand in warm water may help loosen the tension as well. If you have stroke-like symptoms, you should come to the ER. It is okay to use anti-inflammatory medications like Aleve or ibuprofen at bedtime, as these are helpful for some people. Activity Level: Activity as Tolerated Discharge Diet: Regular Prescriptions: No Action magnesium 250 mg tablet 250 mg PO QDAY amlodipine 5 mg tablet 5 mg PO .bedtime Qty: 90 3RF hydrochlorothiazide 25 mg tablet 25 mg PO DAILY Qty: 90 3RF lisinopril 40 mg tablet 40 mg PO QDAY Qty: 90 3RF metoprolol tartrate 50 mg tablet 75 mg PO BID Qty: 270 3RF omeprazole 20 mg capsule,delayed release(DR/EC) 20 mg PO QDAY Qty: 90 3RF fexofenadine 180 mg tablet 180 mg PO DAILY PRN multivitamin [Multiple Vitamins] Tablet 1 tab PO QAM acetaminophen 650 mg tablet extended release 650 mg PO QID PRN rosuvastatin 5 mg tablet 5 mg PO QDAY Qty: 90 3RF cyclobenzaprine 5 mg tablet 5 mg PO QHS Qty: 10 0RF epinephrine 0.3 mg/0.3 mL auto-injector 0.3 ml IM .As Needed as needed PRN (Reason: hypersensitivity reaction) Qty: 2 1RF Follow Up/Referrals: Nadira Sy MD [Primary Care Provider, Family Practice] Stand Alone Forms: MyHealth Info Instructions
== END 2025-04-06 03:21 | disposition home or self-care (01) ==
PROVIDERS: Emergency Provider Family Medicine; PCP Family Medicine
DX: M62.838 Other muscle spasm (principal)
CPT/HCPCS: 99283

== ENCOUNTER 2025-04-09 09:32 | Outpatient (CLI) | payer MEDICARE, SELFPAY | END 2025-04-09 09:33 | disposition home or self-care (01) | PROVIDERS: PCP Family Medicine; Visit Provider Family Medicine | DX: I10 Essential (primary) hypertension (principal); E11.9 Type 2 diabetes mellitus without complications | CPT/HCPCS: 80053; 83735 ==

== ENCOUNTER 2025-04-18 13:21 | Outpatient (CLI) | payer MEDICARE, SELFPAY ==
--- NOTE | 2025-04-18 13:45 | CRLHL7_ITS ---
For Patients: As a result of the Century Cures Act, medical imaging exams and procedure reports are released immediately into your electronic medical record. You may view this report before your referring provider. If you have questions, please contact your health care provider. Indication: Right hand clumsiness for 1 month. Technique: Multiplanar multisequence noncontrast MR images of the cervical spine. Comparison: None. Findings: Motion artifact degrades multiple sequences. Reversal of the cervical lordosis at the C6-7 level. Mild leftward cervical curvature. No acute fracture. No T1 hypointense lesions. The cervical cord is normal in signal intensity. C2-3: Mild facet arthropathy. No spinal canal or neural foraminal narrowing. C3-4: Left facet ankylosis. Mild right facet arthropathy. No spinal canal or neural foraminal narrowing. C4-5: Mild grade 1 anterolisthesis. Shallow disc bulge. Advanced right and mild left facet arthropathy. Thickening ligamentum flavum. Mild spinal canal narrowing. Moderate right without left neural foraminal narrowing. Mild edema in the right articulating facets. C5-6: Grade 1 anterolisthesis. Moderate disc height loss. Shallow disc bulge. Uncinate spurring. Moderate facet arthropathy. Mild spinal canal narrowing. Mild bilateral neural foraminal narrowing. C6-7: Trace retrolisthesis. Severe disc height loss. Lfsq-pb-fmehabhz vertebral body edema. Shallow disc osteophyte complex. Uncinate spurring. [id number]-[id number] facet arthropathy. Minimal spinal canal narrowing. Moderate left and bzdi-[id number] right neural foraminal narrowing. C7-T1: Shallow disc bulge. Mild facet arthropathy. No spinal canal or neural foraminal narrowing. Impression: 1. Multilevel cervical spondylosis without spinal canal stenosis. 2. At C4-5, moderate right neural foraminal narrowing. Mild edema in the right articulating facets is most compatible with a stress response. 3. A C6-7, moderate left and [id number] right neural foraminal narrowing. [id number] discogenic vertebral body edema. Dictated by Nic Soria MD @ 04/19/2025 8:01:15 AM (Electronically Signed)
--- NOTE | 2025-04-18 14:30 | CRLHL7_ITS ---
For Patients: As a result of the Century Cures Act, medical imaging exams and procedure reports are released immediately into your electronic medical record. You may view this report before your referring provider. If you have questions, please contact your health care provider. Indication: Right hand clumsy for 1 month. Technique: Multiplanar multisequence noncontrast MR images of the brain. Comparison: CT brain 04/04/2025. Findings: Multiple small foci of mild diffusion restriction and FLAIR hyperintensity within the high left frontal and left parietal lobes as well as involving the posterior left temporal lobe and lateral left occipital lobe to a lesser degree, compatible with subacute infarctions. Notable infarctions involve the left precentral and postcentral gyri. Mild diffuse cerebral volume loss. No midline shift. Scattered FLAIR hyperintensities in the supratentorial white matter, typical for mild chronic microvascular ischemic changes. No intracranial hemorrhage or pathologic extra-axial fluid collection. The major arterial flow voids of the skull base are preserved. Thinning of the ocular lenses. Mastoid air cells are clear. Advanced left temporomandibular joint degenerative changes. Impression: 1. 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 2. Mild chronic microvascular ischemic changes and diffuse cerebral volume loss. Dictated by Nic Soria MD @ 04/19/2025 7:51:01 AM (Electronically Signed)
== END 2025-04-18 13:22 | disposition home or self-care (01) ==
LOC: MRI 13:22
PROVIDERS: PCP Family Medicine; Visit Provider Family Medicine
DX: R29.898 Other symptoms and signs involving the musculoskeletal system (principal); I63.9 Cerebral infarction, unspecified; I67.82 Cerebral ischemia; M47.892 Other spondylosis, cervical region; M50.221 Other cervical disc displacement at C4-C5 level; M50.223 Other cervical disc displacement at C6-C7 level
CPT/HCPCS: 70551; 72141

== ENCOUNTER 2025-05-07 12:37 | Outpatient (CLI) | payer MEDICARE, SELFPAY ==
--- NOTE | 2025-05-07 13:00 | CRLHL7_ITS ---
For Patients: As a result of the Century Cures Act, medical imaging exams and procedure reports are released immediately into your electronic medical record. You may view this report before your referring provider. If you have questions, please contact your health care provider. INDICATION: Neck pain. TECHNIQUE: 3D time-of flight and gadolinium bolus magnetic resonance angiography of the neck with 3D MIP reconstructions provided. 15 cc of Dotarem gadolinium based contrast administered. All measurements are based on NASCET criteria. COMPARISON : None. FINDINGS: There is a 3 vessel configuration of the aortic arch. The brachiocephalic artery is patent. The proximal subclavian arteries are patent. The common carotid arteries are patent. There is advanced stenosis of the left internal carotid artery origin. The left internal carotid artery beyond the origin is patent. There is mild stenosis of the right internal carotid artery origin. The right internal carotid artery beyond the origin is patent. The cervical vertebral arteries are patent. No abnormal dilatation of the major cervical arteries. IMPRESSION: 1. 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 The left internal carotid artery beyond the origin is patent. 2. Mild stenosis of the right internal carotid artery origin. 3. Major cervical arteries are otherwise patent. Dictated by Ziggy Quintero MD @ 05/09/2025 9:43:31 AM (Electronically Signed)
== END 2025-05-07 12:38 | disposition home or self-care (01) ==
LOC: MRI 12:38
PROVIDERS: PCP Family Medicine; Visit Provider Family Medicine
DX: M54.2 Cervicalgia (principal); I65.23 Occlusion and stenosis of bilateral carotid arteries; R29.898 Other symptoms and signs involving the musculoskeletal system; E78.5 Hyperlipidemia, unspecified
CPT/HCPCS: 70549; 80061; A9575

== ENCOUNTER 2025-06-05 10:34 | Outpatient (CLI) | payer MEDICARE, SELFPAY | END 2025-06-05 10:35 | disposition home or self-care (01) | LOC: NFLDREF 06-11 08:25 | PROVIDERS: PCP Family Medicine; Referring Provider Family Medicine; Visit Provider Family Medicine | DX: Z01.818 Encounter for other preprocedural examination (principal); R91.8 Other nonspecific abnormal finding of lung field; E78.2 Mixed hyperlipidemia; I12.9 Hypertensive chronic kidney disease with stage 1 through stage 4 chronic kidney disease, or unspecified chronic kidney disease; N18.31 Chronic kidney disease, stage 3a; E11.22 Type 2 diabetes mellitus with diabetic chronic kidney disease; R80.9 Proteinuria, unspecified | CPT/HCPCS: 80053; 80061; 82043; 82570 ==

== ENCOUNTER 2025-06-28 05:48 | Emergency (ER) | payer MEDICARE, SELFPAY ==
--- OUTSIDE RECORDS SUMMARY | 2023-03-05 19:00 | XMS_ITS | Continuity of Care Document ---
Author Organization [facility] Address [address] [address] [place] [address] Phone Care Team Providers Care Machinist Helper Marine Name Role Phone Ilsa Tavares MD Unavailable Unavailable Procedures Procedure Date Colonoscopy Flex; Dx (jun) Advance Directives Directive Yes / No Effective Date File Name No Information Encounters Encounter Description Practice Location Reason(s) For Visit Diagnoses Date Provider Providers Copied on Encounter [facility] [employer] [place], [address] [address], [place], [place], [id number], tel:[phone] [facility] No Information Anusha Rosenbaum. [address] [place] [address], [place], [place], [id number], [place]. tel:[phone] Referring Provider: Ilsa Tavares MD, [facility] [address], [address]. tel:[phone] [facility] [employer] [place], [address] [address], [place], [place], [id number], tel:[phone] [facility] No Information Danny Connolly. [address] [place] [address], [place], [place], [address], [place]. tel:[phone] Family History Family Member Type Diagnosis Age At Onset No Information Immunizations Vaccine Date Status Comments SARS-COV-2 (COVID-19) vaccin e, mRNA, spike protein, LNP, bivalent booster, preservative free, 50 mcg/0.5 mL or 25 mcg/0.25 mL dose administered Note: [facility] bi-direct ional interface ; Source: Other Registry influenza, seasonal vaccine, quadrivalent, adjuvanted, 0.5mL dose, preservative free administered Note: [facility] bi-di rectional interface ; Source: Other Registry SARS-COV-2 (COVID-19) vaccin e, mRNA, spike protein, LNP, preservative free, 100 mcg/0.5mL dose or 50 mcg/0.25mL dose administered Note: [facility] bi -directional interface ; Source: Other Registry Afluria Qd administered Note: [facility] bi-directional interface ; Source: Other Registry SARS-COV-2 (COVID-19) vaccin e, mRNA, spike protein, LNP, preservative free, 100 mcg/0.5mL dose or 50 mcg/0.25mL dose administered Note: [facility] bi -directional interface ; Source: Other Registry SARS-COV-2 (COVID-19) vaccin e, mRNA, spike protein, LNP, preservative free, 100 mcg/0.5mL dose or 50 mcg/0.25mL dose administered Note: [facility] bi -directional interface ; Source: Other Registry influenza, high-dose seasona l, quadrivalent, 0.7mL dose, preservative free administered Note: [facility] bi-direct ional interface ; Source: Other Registry zoster vaccine recombinant administered N ote: [facility] bi-directional interface ; Source: Other Registry zoster vaccine recombinant administered N ote: [facility] bi-directional interface ; Source: Other Registry Seasonal trivalent influenza vaccine, adjuvanted, preservative free administered Note: [facility] bi-direct ional interface ; Source: Other Registry Seasonal trivalent influenza vaccine, adjuvanted, preservative free administered Note: [facility] bi-direct ional interface ; Source: Other Registry Seasonal trivalent influenza vaccine, adjuvanted, preservative free administered Note: [facility] bi-direct ional interface ; Source: Other Registry influenza, high dose seasona l, preservative-free administered Note: [facility] bi-direct ional interface ; Source: Other Registry Prevnar 13 administered Note: [facility] bi-d irectional interface ; Source: Other Registry influenza, high dose seasona l, preservative-free administered Note: [facility] bi-direct ional interface ; Source: Other Registry influenza, high dose seasona l, preservative-free administered Note: [facility] bi-direct ional interface ; Source: Other Registry tetanus and diphtheria toxoi ds, adsorbed, preservative free, for adult use (5 Lf of tetanus toxoid and 2 Lf of diphtheria toxoid) administered Note: [facility] bi-direct ional interface ; Source: Other Registry Pneumovax 23 administered Note: [facility] bi-d irectional interface ; Source: Other Registry Influenza, seasonal, injectable administe red Note: [facility] bi- directional interface ; Source: Other Registry Novel [id number], all formulations administered Note: [facility] bi-direct ional interface ; Source: Other Registry Influenza, seasonal, injectable administe red Note: [facility] bi- directional interface ; Source: Other Registry Influenza, seasonal, injectable administe red Note: [facility] bi- directional interface ; Source: Other Registry Influenza, seasonal, injectable administe red Note: [facility] bi- directional interface ; Source: Other Registry Influenza, seasonal, injectable administe red Note: [facility] bi- directional interface ; Source: Other Registry Payers Payer name Insurance type Covered democrat ID Authoriza tion(s) Medicare NGS MB [id number] [place] [employer] Medicare Supplement BL [id number] Social History Type Description Quantity Date Captured Comments Sex Female Smoking Status No Information Chief Complaint And Reason For Visit No Information Reason For Referral Reason For Referral No Information History Of Present Illness Encounter Date Complaint History Of Prese nt Illness No Information Functional Status Date Functional Assessmen t No Information Instructions Date Instruction Additional Infor mation No Information Assessments Type Assessment Date No Information Patient Care Teams Name Effective Dates (start - stop) Status Members No Information
--- OUTSIDE RECORDS SUMMARY | 2023-03-05 19:00 | XMS_ITS | Continuity of Care Document ---
Author Organization [facility] Address [address] [address] [place] [address] Phone Care Team Providers Care Canvas Worker Name Role Phone Ilsa Tavraes MD Unavailable Unavailable Procedures Procedure Date Colonoscopy Flex; Dx (jun) Advance Directives Directive Yes / No Effective Date File Name No Information Encounters Encounter Description Practice Location Reason(s) For Visit Diagnoses Date Provider Providers Copied on Encounter [facility] [place], [address] [address], [place], [place], [id number], tel:[phone] [facility] No Information Anusha Rosenbaum. [address] [place] [address], [place], [place], [id number], [place]. tel:[phone] Referring Provider: Ilsa Tavares MD, [facility] [address], [address]. tel:[phone] [facility], [address] [address], [place], [place], [address], tel:[phone] [facility] No Information Danny Connolly. [address] [place] [address], [place], [place], [id number], [place]. tel:[phone] Family History Family Member Type Diagnosis Age [...] directional interface ; Source: Other Registry Novel [id number], all formulations administered Note: [facility] bi-direct ional [...] Registry Payers Payer name Insurance type Covered libertarian ID Authoriza tion(s) Medicare NGS MB [id number] [place] [employer] Medicare Supplement BL [id number] Social History Type Description Quantity Date Captured [...]
--- OUTSIDE RECORDS SUMMARY | 2025-06-28 05:50 | XMS_ITS | Clinical Summary ---
Author Organization [facility] Address [address] [place] [address] Care Team Providers Care Broach Grinder Name Role Phone Nadira Sy MD Primary Care Provider + Allergies Active Allergy Reactions Criticality Noted Date Comments Amoxicillin-Pot Clavulanate Other - Describe In Comment Field 02/03/2010 Tolerated cefazolin preop 02/09/22 Aspirin *Unknown 10/22/2012 RXN whole aspirin but can take the 81 mg aspirin Atorvastatin *Unknown 10/22/2012 Bee Venom Protein (Honey Bee) Other - Describe In Comment Field 02/03/2010 Cortisone *Unknown Medium 10/22/2012 Naproxen *Unknown 10/22/2012 Sulfa (Sulfonamide Antibiotics) *Unknown 10/22/2012 Medications omeprazole (PRILOSEC) 20 mg capsule Take 1 capsule by mouth 2 times daily before meals. 30 capsule 11 013 Active Additional Information Patient taking differently:20 mg OralONCE DAILY BEFORE A MEAL, Reported on 06/17/2025 amLODIPine (NORVASC) 10 mg tablet Take 1 Tablet by mouth once daily. 025 Active rosuvastatin (CRESTOR) 5 mg tablet Take 1 Tablet by mouth once daily. 025 Active metoprolol tartrate (LOPRESSOR) 50 mg tablet Take 1.5 Tablets by mouth two times daily. 025 Active aspirin chewable 81 mg tablet Chew 81 mg by mouth once daily. Active lisinopriL (PRINIVIL; ZESTRIL) 40 mg tablet Take 40 mg by mouth once daily. Active sennosides-docu sate (SENOKOT S) (8.6-50 mg) tabletIndicatio ns:Constipation , unspecified constipation type Take 1-2 Tablets by mouth 2 times daily if needed for Constipation. 025 Active acetaminophen (TYLENOL EXTRA STRGTH) 500 mg tabletIndicatio ns:Acute pain Take 2 Tablets (1,000 mg) by mouth every 6 hours if needed for Pain. Max acetaminophen dose: 4000mg in 24 hrs. 025 Active clopidogreL (Plavix) 75 mg tabletIndicatio ns:Symptomatic stenosis of left carotid artery Take 1 Tablet (75 mg) by mouth once daily. 90 Tablet 3 025 Active lisinopril (PRINIVIL; ZESTRIL) 20 mg tablet Take 1 tablet by mouth 2 times daily. 0 013 2024 Discontinued(P harmacist change per medication history (E-cancel not sent)) triamterene-hyd rochlorothiazid e, 37.5-25 mg, (DYAZIDE) 37.5-25 mg capsule Take 1 capsule by mouth every morning. 0 013 2024 Discontinued(P harmacist change per medication history (E-cancel not sent)) HYDROmorphone (DILAUDID) 2 mg tablet Take 1 tablet by mouth every 4 hours if needed for Pain. 30 tablet 0 013 2024 Discontinued(P harmacist change per medication history (E-cancel not sent)) gemfibrozil (LOPID) 600 mg tablet Take 1 tablet by mouth 2 times daily before meals. 0 013 2024 Discontinued(P harmacist change per medication history (E-cancel not sent)) polysaccharide iron complex (FERREX 150) 150 mg iron capsule Take 1 capsule by mouth once daily with a meal. 30 capsule 0 013 2024 Discontinued(P harmacist change per medication history (E-cancel not sent)) clopidogreL (Plavix) 75 mg tabletIndicatio ns:Symptomatic stenosis of left carotid artery Take 1 Tablet (75 mg) by mouth once daily. 30 Tablet 025 2024 Discontinued acetaminophen (TYLENOL) 325 mg tabletIndicatio ns:Acute pain Take 2 Tablets (650 mg) by mouth every 6 hours if needed for Pain. Max acetaminophen dose: 4000mg in 24 hrs. 025 2024 Discontinued(* IP Discontinued) oxyCODONE (ROXICODONE) 5 mg immediate release tabletIndicatio ns:Acute pain Take one-half to one Tablet (2.5-5 mg) by mouth every 6 hours if needed for Pain. 5 Tablet 025 2024 Discontinued(* IP Discontinued) clopidogreL (Plavix) 75 mg tabletIndicatio ns:Symptomatic stenosis of left carotid artery Take 1 Tablet (75 mg) by mouth once daily. 30 Tablet 2 025 2024 Discontinued(R eorder (E-cancel not sent)) HYDROmorphone 2 mg tabletIndicatio ns:Acute pain,Symptomati c stenosis of left carotid artery Take ONE-HALF Tablets (1 mg) by mouth every 6 hours if needed for Pain. 2 Tablet 06/19/20 11:28 AM CDT 025 2024 Active Problems Problem Noted Date Diagnosed Date GERD (gastroesophageal reflux disease) Symptomatic stenosis of left carotid artery 05/03 Hyperlipidemia 10/26/2012 S/P total knee replacement 10/22/2012 HTN (hypertension) 10/22/2012 Urinary frequency 10/22/2012 Encounters Date Type Department Care Team Description 06/23[facility] [address] [place] [address] Damaso Swain MD Refill Request 06/17/2025 8:46 AM CDT Anesthesia Event [facility] [address] [place] [address] Jose Antonio Gregorio MD 06/17/2025 7:45 AM CDT - 06/17/2025 10:20 AM CDT Surgery [facility] [address], [place] [address] Damaso Swain MD LEFT TRANSCAROTID ARTERY REVASCULARIZATION *[facility] W[facility]* 06/17/2025 6:15 AM CDT - 06/19/2025 12:33 PM CDT Hospital Encounter [facility] [address], [place] [address] Damaso Swain MD Acute pain (Primary Dx); Constipation, unspecified constipation type; Symptomatic stenosis of left carotid artery Discharge Disposition: Home Self Care 06/17/2025 Travel 06/04/2025 Telephone [facility] [address] [place] [id number] Damaso Swain MD Surgery Scheduled 05/30/2025 10:30 AM CDT Office Visit [facility] [address] [place] [id number] Damaso Swain MD CV Vascular New (Consult: Left carotid artery stenosis. Referral by Nadira Sy MD. All records in [facility]. CT H/N prior to OV.) 05/30/2025 8:06 AM CDT - 05/30/2025 11:59 PM CDT Hospital Encounter [facility] [address] [place] [id number] Honey Alves NP Left carotid artery stenosis 05/29/2025 Travel 05/13/2025 Telephone [facility] [address] [place] [address] Los Gao MD Referral 05/13/2025 Orders Only [facility] [address], [place] [address] Honey Alves NP <No scans attached> 05/12/2025 Orders Only [facility] Scanner 1 scan: (1-Ord) INCOMING RECORDS-LABS, [facility], 05/12/2025 05/12/2025 Orders Only [facility] Scanner 1 scan: (1-Ord) INCOMING RECORDS-MRI, [facility], 05/12/2025 05/12/2025 Orders Only [facility] Scanner 1 scan: (1-Ord) INCOMING RECORDS-CT, [facility], 05/12/2025 05/12/2025 Orders Only [facility] Scanner 1 scan: (1-Ord) INCOMING RECORDS-MRI, [facility], 05/12/2025 05/12/2025 Orders Only [facility] Scanner 1 scan: (1-Ord) INCOMING RECORDS-LABS, [facility], 05/12/2025 from Last 3 Months Social History Tobacco Use Types Packs/Day Years Used Date Smoking Tobacco: Never Smokeless Tobacco: Never Tobacco Cessation:Counseling Given: Not Answered Alcohol Use Standard Drinks/Week Comments Not Currently 0 (1 standard drink = 0.6 oz pur e alcohol) Comments Unknown Sex and Gender Information Value Date Recorded Sex Assigned at Not on file 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 Gender Identity Not on file Sexual Orientation Not on file Obstetrics History Last Filed Vital Signs Vital Sign Reading Time Taken Comments Blood Pressure 132/64 06/19/2025 8:00 AM CDT Pulse 77 06/19/2025 8:00 AM CDT Temperature 36.6 C (97.9 F) 06/19/2025 8:00 AM CDT Respiratory Rate 16 06/19/2025 8:00 AM CDT Oxygen Saturation 95% 06/19/2025 10:38 AM CDT Inhaled Oxygen Concentration - - Weight 74.1 kg (163 lb 6.4 oz) 06/19/2025 6:20 A M CDT Height 162.6 cm (5' 4) 06/17/2025 7:00 AM CDT Body Mass Index 28.05 06/17/2025 7:00 AM CDT Plan of Treatment Upcoming Encounters Date Type Department Care Team (Late st Contact Info) Description 07/18/2025 9:15 AM CDT Appointment [facility] [address] [place] [address] 07/18/2025 10:00 AM CDT Office Visit [facility] [address] [place] [address] Damaso Swain MD [address] [place] [address] Health Maintenance Due Date Last Done Comments Tetanus booster 1952 Depression screening for age 12+ 1953 BMI (ht and wt on same day) for age 18+ 1959 Pneumococcal series for age 50+ (1 of 1 - PCV) 1991 Zoster (shingles) series for age 50+ (1 of 2) 1991 DEXA/DXA scan for age 65+ 2006 Medicare Wellness for age 65+ 2006 RSV vaccine for adults or (1 - 1-dose 75+ series) 2016 COVID-19 vaccine series ( season) 2025 07/19/2021, 12/24/2020, 12/03/2020 Influenza Vaccine (#1) 2025 Hepatitis B series for 19+ Aged Out N o longer eligible based on patient's age to complete this topic Procedures Procedure Name Priority Date/Time Associated Diagnosis Comments SCAN-CARDIAC STRIP 06/19/2025 7:17 AM CDT SCAN-CARDIAC STRIP 06/19/2025 3:02 AM CDT GLUCOSE METER Timed 06/18/2025 5:18 PM CDT SCAN-CARDIAC STRIP 06/18/2025 7:21 AM CDT SCAN-CARDIAC STRIP 06/18/2025 3:03 AM CDT GLUCOSE METER Timed 06/17/2025 5:55 PM CDT GLUCOSE METER Timed 06/17/2025 11:03 AM CDT GLUCOSE METER Timed 06/17/2025 11:00 AM CDT PV OTHER PROCEDURE Routine 06/17/2025 10:36 AM CDT HCHG ACTIVATED CLOTTING TM CV Timed 06/17/2025 10:19 AM CDT HCHG ACTIVATED CLOTTING TM CV Timed 06/17/2025 9:45 AM CDT ENDOTRACHEAL TUBE Routine 06/17/2025 9:09 AM CDT ENDOTRACHEAL TUBE Routine 06/17/2025 9:09 AM CDT REVASCULARIZATION TRANS CAROTID ARTERY (TCAR) 06/17/2025 8:25 AM CDT Symptomatic left carotid artery stenosis. Case Notes LEFT TRANSCAROTID ARTERY REVASCULARIZATION *ELIZABETH W/[facility]* EXTRA TUBE GOLD/SST Today 06/17/2025 8:02 AM CDT P2Y12 INHIBITION Preop 06/17/2025 8:02 AM CDT GLUCOSE METER Timed 06/17/2025 7:39 AM CDT HCHG KIT PR5 Routine 06/17/2025 7:20 AM CDT HCHG DRSG PR5 Routine 06/17/2025 7:20 AM CDT HCHG TUBING PR20 Routine 06/17/2025 7:20 AM CDT HCHG TUBING PR1 Routine 06/17/2025 7:20 AM CDT HCHG ANES ARTERIAL CATH FOR SAMPLE MONITOR TRANS Routine 06/17/2025 7:20 AM CDT HCHG ANES US GUIDE FOR VASC ACCESS Routine 06/17/2025 7:20 AM CDT HCHG CATH INFUSION PR10 Routine 06/17/2025 7:20 AM CDT TYPE & SCREEN Preop 06/17/2025 7:16 AM CDT BASIC METABOLIC PANEL Preop 06/17/2025 7:16 AM CDT CBC W PLT NO DIFF Preop 06/17/2025 7:16 AM CDT EXTRA TUBE GOLD/SST Today 06/17/2025 6:45 AM CDT SCAN-CARDIAC STRIP 06/17/2025 12:00 AM CDT SCAN CORRESP-EKG RESULTS 06/05/2025 3:06 PM CDT SCAN CORRESP-LABORATORY RESULTS 06/05/2025 3:[address] ANGIO HEAD AND NECK CAROTID MANNIE 05/30/2025 8:59 AM CDT Left carotid artery stenosis CREATININE,ISTAT Routine 05/30/2025 8:50 AM CDT SCAN CORRESP-LABORATORY RESULTS 05/12/2025 12:00 AM CDT SCAN CORRESP-LABORATORY RESULTS 05/12/2025 12:00 AM CDT SCAN CORRESP-IMAGING 05/12/2025 12:00 AM CDT SCAN CORRESP-IMAGING 05/12/2025 12:00 AM CDT SCAN CORRESP-IMAGING 05/12/2025 12:00 AM CDT from Last 3 Months Results * SCAN-CARDIAC STRIP (06/19/2025 7:17 AM CDT) us Scanner OTHER Final Result * SCAN-CARDIAC STRIP (06/19/2025 3:02 AM CDT) us Scanner OTHER Final Result * (ABNORMAL) GLUCOSE METER (06/18/2025 5:18 PM CDT) Only the most recent of5 resultswithin the time period is included. [facility] GLUCOSE METER 183(H) 65 - 100 mg/dL 06/18/2025 5:21 PM CDT [facility] Blood BLOOD SPECIMEN / Unknown 06/18/2025 5:18 PM CDT 06/18/2025 5:21 PM CDT us Damaso Swain MD CHEMISTRY F inal Result [facility] [address] [place] [address], [place] * SCAN-CARDIAC STRIP (06/18/2025 7:21 AM CDT) us Scanner OTHER Final Result * SCAN-CARDIAC STRIP (06/18/2025 3:03 AM CDT) us Scanner OTHER Final Result * PV OTHER PROCEDURE (06/17/2025 10:36 AM CDT) Anatomical Region Laterality Modality Other Narrative 06/17/2025 10:36 AM CDT Damaso Swain MD 06/17/2025 5:34 PM OPERATIVE REPORT DATE OF SURGERY: 06/17/2025 SURGEON: Damaso wSain MD FIRST FIRE ENGINEER: Genet Parrish MD (vascular surgery fellow ANESTHESIA: General anesthesia. PREOPERATIVE DIAGNOSIS: Left severe carotid stenosis, symptomatic POSTPERATIVE DIAGNOSIS: Same as preoperative diagnosis NAME OF OPERATION: Ultrasound examination of the left neck and right groin. Open exposure of the left common carotid artery. Right femoral vein puncture with induction of sheath. Left (TCAR procedure) transcarotid angioplasty and stenting utilizing 10x40 mm ENROUTE transcarotid stent and cerebral protection utilizing reversal of flow. INDICATIONS FOR PROCEDURE: Angeline Reyes is a 84 y.o. female patient was referred to vascular surgery clinic for evaluation of high grade carotid stenosis in the setting of a recent event where her right hand was clumsy and cramping. She also apparently had some brief aphasia. It was felt that the left carotid artery stenosis was the likely etiology of the neurologic events so she was recommend to undergo a carotid revascularization procedure for future stroke risk reduction. The risks, benefits as well as alternatives to surgical therapy were thoroughly discussed with the patient. The patient understood that the risks of the procedure include, but not limited to, bleeding, infection, need for reoperation, cranial nerve injury, stroke, as well as perioperative complications from anesthesia. At this point, the patient signed a surgical consent and we were given permission to proceed. OPERATIVE FINDINGS: Ultrasound of the neck demonstrated a relatively healthy left common carotid artery with an adequate length of common carotid artery for proceeding. An ultrasound examination of the groin also demonstrated the right common femoral vein to be easily compressible and a hard copy of the image was placed in the patient's medical records. We were able to get exposure of the left common carotid artery just above the level of the clavicle. An angiogram demonstrated evidence of a severe stenosis of greater than 95% in the left carotid artery with a lesion length of about 27 mm. We were able to get across this and subsequently treated the lesion while undergoing maximal reversal of flow. A completion angiogram demonstrated an excellent technical result with no residual stenosis. At this point, the patient tolerated the procedure well and was awakened from anesthesia neurologically intact. DESCRIPTION OF PROCEDURE: After obtaining informed consent, the patient was brought to the operating room and placed in the supine position. A preoperative timeout was performed which confirmed that the correct patient as well as procedure that was being performed. General anesthesia was induced and the patient was then prepped and draped in the usual sterile fashion. We first performed the ultrasound examination on the left neck which demonstrated the location of the common carotid artery. Under ultrasonic guidance, we placed a micropuncture needle into the left common femoral vein and subsequently exchange this over a wire and for the femoral venous sheath. We made a short incision approximately 3 cm in length just above the level of the left clavicle. Subcutaneous dissection allowed me to identify the common carotid artery as well as the jugular vein and the vagus nerve. We made sure that we did not injury any of the adjacent structures during the procedure. We dissected enough to make sure we had adequate exposure proximally and distally on the left common carotid artery and placed vessel loops. The patient was then given intravenous heparin for systemic anticoagulation and additional boluses were given as necessary to maintain an ACT greater than 275. We placed a U-stitch in the proximal left common carotid artery utilizing a 5-0 Prolene suture. We then punctured the common carotid artery utilizing a micropuncture kit and slowly advanced the wire. We then advanced in the micropuncture dilator sheath and we then performed initial angiogram which demonstrated our initial anatomy. We then utilized a stiff wire and subsequently advanced in our common carotid artery sheath. After appropriate flushing maneuvers, we then subsequently connected our reversal flow device between the arterial and the venous sheath. We tested that that was adequate reversal of flow both on the high and the low settings. Once this was done, we then performed additional angiograms. We tightened the vessel loop to arrest flow in the common carotid artery proximal to our arterial sheath. We got across the lesion utilizing an 0.014 wire. We then predilated our stenosis utilizing a 5.5 mm angioplasty balloon. I selected a 10x40 mm ENROUTE stent which was subsequently positioned at the desired location and subsequently deployed without events. The final completion angiogram demonstrated an excellent technical result. Once we were satisfied with this, we then subsequently withdrew our wire and sheath. The arteriotomy was then repaired by tying off the prolene suture. At this point, the patient was then given protamine to reverse the anticoagulation. Once the ACT returned as normal, we subsequently removed the femoral venous sheath and manual pressure was held for hemostasis. For the neck wound, we made sure we had adequate hemostasis. The muscle layers were then reapproximated utilizing a 3-0 Vicryl suture and the skin was then reapproximated utilizing a 4-0 monocryl suture placed in a subcuticular fashion. Skin glue was then placed on top of this and the patient was then awakened from anesthesia. SPECIMENS REMOVED: None ESTIMATED BLOOD LOSS: 25 ml INTRAOPERATIVE FLUIDS: Please see anesthesia record. SPONGE/INSTRUMENT/NEEDLE COUNTS: Correct x2. CONDITION ON DISCHARGE FROM OPERATING ROOM: Stable. COMPLICATIONS: None apparent. ATTESTATION OF PRESENCE: I was present and scrubbed for the entire procedure as dictated above. IRON AND STEEL WORK SUPERVISOR MEASURES: The patient received 2 g of Ancef within 60 minutes of procedure time. We utilized approximately 9 ml of Visipaque contrast and fluoroscopy time was 1.7 minutes (97.2 mGy). The patient received intravenous heparin for this procedure and no additional DVT prophylaxis was administered. The flow reversal time was 7 minutes. Damaso Swain MD Vascular and Endovascular Surgery us Damaso Swain MD CV IMAGING F inal Result * (ABNORMAL) ACTIVATED CLOTTING TIME [id number] ACT (06/17/2025 10:19 AM CDT) Only the most recent of2 resultswithin the time period is included. [facility] ACTIVATED CLOTTING TIME, POCT 141(H) 74 - 125 sec 06/19/2025 10:01 PM CDT [facility] Blood BLOOD SPECIMEN / Unknown 06/17/2025 10:19 AM CDT 06/19/2025 10:01 PM CDT Damaso Swain MD HEMATOLOGY F inal Result Performing Organization Address [facility] Co de Phone Number [facility] [address] [address], [place] * HCHG TUBE PR1, HCHG MOUTHPIECE PR1 (06/17/2025 9:09 AM CDT) Narrative Ewelina Baez, LITHOGRAPHIC STRIPPER - 06/17/2025 9:09 AM CDT Ewelina Baez N, LITHOGRAPHIC STRIPPER 06/17/2025 9:09 AM Procedure: ETT Patient location during procedure: OR ETT Properties Mask Ventilation: easy Final Technique: direct laryngoscopy Type: straight Location: oral Cuffed: yes Tube Size: 7.0 mmno Laryngoscope Blade: Guerra Blade Size: 1 Cormack-Lehane Grade View: 1 Insertion Attempts: 1 Placement Verification: auscultation, end tidal CO2 and symmetrical chest wall movement Assessment: pharynx clear, atraumatic and dentition unchanged Secured at: 21 Measured From: lips Tooth guard used and removed: yes Difficulty: 0 (not difficult) Jose Antonio Ahuja MD ANESTHESIA PX NOTE ORDERABLES Final Result * EXTRA TUBE GOLD/SST (06/17/2025 8:02 AM CDT) Only the most recent of2 resultswithin the time period is included. Blood BLOOD SPECIMEN / Unknown Venipuncture / Unknown 06/17/2025 8:02 AM CDT 06/17/2025 8:27 AM CDT Damaso Swain MD LABORATORY F inal Result Performing Organization Address City/[facility]/ZIP Co de Phone Number [facility] [address] [address], [place] * P2Y12 Inhibition (06/17/2025 8:02 AM CDT) PLATELET COUNT 288 140 - 440 thou/cu mm 06/17/2025 8:36 AM CDT [facility] P2Y12 REACTION UNITS 179 06/17/2025 8:36 AM CDT [facility] Comment: Reference Range: Individuals on P2Y12 inhibition therapy: <208 PRU PRU response seen in patients not on P2Y12 inhibitor medications (mean +/- 2SD): 180-376 PRU It is important to note that the reference range among cardiac patients not exposed to P2Y12 inhibitors is quite broad (180-376 PRU). Published studies suggest that achieving a value of <208 PRU for cardiology patients receiving anti-platelet therapy is associated with a lower risk of thrombotic events. There is currently no known optimal therapeutic target PRU values. PRU targets to assess drug withdrawal in pre-surgical patients have not been established. References: 1. Kristen Teague, Jayme Urbina, Janelle P, et al. Platelet Reactivity and Cardiovascular Outcomes after Percutaneous Coronary Intervention. Circulation. 2011;124:1132- 1137. 2. Vinay Urbina, [place], Neli Dunn, et al. Bleeding and stent thrombosis on [id number]: collaborative analysis on the role of platelet reactivity for risk stratification after percutaneous coronary intervention. Heart Journal. 2015; 36:6881-0054. 3. Vinay Urbina, Winnie RF, Oleg csi A, et al. Expert position paper on the role of platelet function testing in patients undergoing percutaneous coronary intervention. Heart Journal. 2014;35(4):209-215. HEMATOCRIT 35.7 33.0 - 51.0 % 06/17/2025 8:36 AM CDT [facility] Blood BLOOD SPECIMEN / Unknown Venipuncture / Unknown 06/17/2025 8:02 AM CDT 06/17/2025 8:25 AM CDT Narrative [facility] - 06/17/2025 8:36 AM CDT OBTAIN BLOOD COLLECTION TUBES FROM THE LABORATORY. us Shravan Lyons GLASS PRODUCTS INSPECTOR SEND OUTS Martha dunn Result [facility] [address] [place] [address], [place] * HCHG CATH INFUSION PR10, HCHG ANES US GUIDE FOR VASC ACCESS, HCHG ANES ARTERIAL CATH FOR SAMPLE MONITOR TRANS, HCHG TUBING PR1, HCHG TUBING PR20, HCHG DRSG PR5, HCHG KIT PR5 (06/17/2025 7:20 AM CDT) Narrative Jose Antonio Gregorio MD - 06/17/2025 7:20 AM CDT Jose Antonio Gregorio MD 06/17/2025 7:21 AM Arterial Line Patient location during procedure: pre-op Start time: 06/17/2025 7:00 AM End time: 06/17/2025 7:10 AM Indications: lab sampling and monitoring Staffing Preanesthetic Checklist Completed: patient identified, risks and benefits discussed, consent obtained and timeout performed Arterial Line Patient position: supine. Comment:. Laterality: left Site: radial Local Anesthetic: lidocaine 1%. Ultrasound guidance: live ultrasound, ultrasound permanent image saved and sterile gel and probe cover used in ultrasound-guided central venous catheter insertion. Needle localization (ultrasound): no pathologic findings, selected vessel patent, anatomically normal, potential access sites evaluated and needle visualized entering selected vessel. Securement/dressing: Biopatch applied. Comment: Vessel Dry Cell Assembly Machine Tender Additional supplies used to locate vessel: no Needle Catheter size: 20 G. Comment:. Catheter length: 12 cm. Comment: Events: no complications. us Jose Antonio Ahuja MD ANESTHESIA PX NOTE ORDERABLES Final Result * Type and Screen (06/17/2025 7:16 AM CDT) ABORH A Rh Positive 06/17/2025 8:10 AM CDT [facility] ANTIBODY SCREEN Negative Negative 06/17/2025 8:10 AM CDT [facility] SPECIMEN EXPIRATION DATE/TIME 06/20/25 23:59 06/17/2025 8:10 AM CDT [facility] Blood BLOOD SPECIMEN / Unknown Non-Lab Venipuncture / Unknown 06/17/2025 7:16 AM CDT 06/17/2025 7:28 AM CDT Shravan Lyons NP BLOOD BANK Martha dunn Result [facility] [address] [place] [address], * (ABNORMAL) CBC W PLT NO DIFF (06/17/2025 7:16 AM CDT) WHITE BLOOD COUNT 8.7 4.5 - 11.0 thou/cu mm 06/17/2025 7:36 AM CDT [facility] RED BLOOD COUNT 3.83(L) 4.00 - 5.20 mil/cu mm 06/17/2025 7:36 AM CDT [facility] HEMOGLOBIN 11.8(L) 12.0 - 16.0 g/dL 06/17/2025 7:36 AM T [facility] HEMATOCRIT 34.5 33.0 - 51.0 % 06/17/2025 7:36 AM CDT [facility] MCV 90 80 - 100 fL 06/17/2025 7:36 AM CDT [facility] MCH 30.8 26.0 - 34.0 pg 06/17/2025 7:36 AM CDT [facility] MCHC 34.2 32.0 - 36.0 g/dL 06/17/2025 7:36 AM T [facility] RDW 12.5 11.5 - 15.5 % 06/17/2025 7:36 AM T [facility] PLATELET COUNT 271 140 - 440 thou/cu mm 06/17/2025 7:36 AM CDT [facility] MPV 10.0 6.5 - 11.0 fL 06/17/2025 7:36 AM CDT [facility] NRBC 0.0 % 06/17/2025 7:36 AM T [facility] ABS NRBC 0.0 thou /cu mm 06/17/2025 7:36 AM T [facility] Blood BLOOD SPECIMEN / Unknown Non-Lab Venipuncture / Unknown 06/17/2025 7:16 AM CDT 06/17/2025 7:28 AM CDT Shravan Lyons NP HEMATOLOGY Martha l Result [facility] [address] [place] [address], [place] * (ABNORMAL) Basic Metabolic Panel (06/17/2025 7:16 AM CDT) SODIUM 134(L) 136 - 145 mmol/L 06/17/2025 8:01 AM CDT [facility] POTASSIUM 4.5 3.5 - 5.1 mmol/L 06/17/2025 8:01 AM T [facility] CHLORIDE 100 98 - 107 mmol/L 06/17/2025 8:01 AM T [facility] CO2,TOTAL 20(L) 22 - 29 mmol/L 06/17/2025 8:01 AM T [facility] ANION GAP 14 5 - 18 06/17/2025 8:01 AM T [facility] GLUCOSE 151(H) 70 - 99 mg/dL 06/17/2025 8:01 AM T [facility] CALCIUM 9.7 8.8 - 10.4 mg/dL 06/17/2025 8:01 AM T [facility] Comment: Reference ranges for this test were updated on 08/06/2024 to reflect our healthy population more accurately. Reference range changes are not retroactively applied to results, but previous results using the same methodology can be interpreted in the context of the new reference range. BUN 18 8 - 23 mg/dL 06/17/2025 8:01 AM T [facility] CREATININE 0.83 0.50 - 0.90 mg/dL 06/17/2025 8:01 AM T [facility] BUN/CREAT RATIO 22(H) 10 - 20 8:01 AM T [facility] eGFR 70(L) >90 mL/min/1. 73m2 06/17/2025 8:01 AM CDT [facility] Comment:As of 2021, eG FR is calculated by the CKD-EPI creatinine equation without race adjustment. eGFR can be influenced by muscle mass, exercise, and diet. The reported eGFR is an estimation only and is only applicable if the renal function is stable. Blood BLOOD SPECIMEN / Unknown Non-Lab Venipuncture / Unknown 06/17/2025 7:16 AM CDT 06/17/2025 7:28 AM CDT Shravan Lyons NP CHEMISTRY Martha l Result [facility] [address] [place] [address], [place] * SCAN-CARDIAC STRIP (06/17/2025 12:00 AM CDT) Narrative 06/17/2025 12:00 AM CDT Ordered by an unspecified provider. us Other Clinical Staff OTHER Final Resul t * SCAN CORRESP-LABORATORY RESULTS (06/05/2025 3:06 PM CDT) Only the most recent of3 resultswithin the time period is included. Narrative 06/05/2025 3:06 PM CDT Ordered by an unspecified provider. us Other Clinical Staff OTHER Final Resul t * SCAN CORRESP-EKG RESULTS (06/05/2025 3:06 PM CDT) Narrative 06/05/2025 3:06 PM CDT Ordered by an unspecified provider. us Other Clinical Staff OTHER Final Resul t * CTA HEAD AND NECK CAROTID (05/30/2025 8:59 AM CDT) Anatomical Region Laterality Modality BRAIN, NECK Computed Tomogra phy 05/30/2025 9:29 AM CDT Impressions 05/30/2025 9:29 AM CDT 1. Critical (greater than 95%) stenosis at the origin of the left internal carotid artery by NASCET criteria. This is caused by non-calcified plaque with a hairline residual lumen. 2. Intracranial atherosclerosis with moderate narrowing in the left vertebral artery. Please note that all CT scans at this facility use dose modulation, iterative reconstruction, and/or weight-based dosing when appropriate to reduce radiation dose to as low as reasonably achievable. Dictated by: Diego Dacosta MD @ 05/30/2025 09:29:24 (Electronically Signed) Narrative 05/30/2025 9:29 AM CDT For Patients: As a result of the Cures Act, medical imaging exams and procedure reports are released immediately into your electronic medical record. You may view this report before your referring provider. If you have questions, please contact your health care provider. CT ANGIOGRAM HEAD AND NECK DATE: 05/30/2025. CLINICAL HISTORY: Patient with focal neurological deficits. TECHNIQUE: Standard helical CT image acquisition through the head and neck was performed after intravenous contrast bolus enhancement. 2D and 3D MIP images for post-processing were performed and interpreted on an independent workstation and 3D images were permanently archived. COMPARISON: None. FINDINGS: The origins of the great vessels from the aortic arch are patent. The origin of the right vertebral artery is patent. The origin of the left vertebral artery is patent. The common carotid arteries are patent. There is no stenosis at the origin of the right internal carotid artery by NASCET criteria. There is a critical (greater than 95%) stenosis at the origin of the left internal carotid artery by NASCET criteria. This is caused by non-calcified plaque with a hairline residual lumen. The rest of the cervical segments of the internal carotid arteries are patent up to their intracranial segments. The intracranial segments of the internal carotid arteries are patent. The vertebral arteries are codominant. The cervical segments of the vertebral arteries are patent. The intracranial segments of the vertebral arteries demonstrate moderate narrowing on the left. The middle cerebral arteries are normal without aneurysm or proximal occlusion identified. The anterior cerebral arteries are normal without aneurysm or proximal occlusion identified. The anterior communicating artery is well visualized and appears normal. The basilar artery is normal without aneurysm or occlusion. The posterior cerebral arteries are normal without aneurysm or proximal occlusion. There is normal opacification of major intracranial venous structures. The visualized lung apices are unremarkable. The thyroid gland is unremarkable. The soft tissues of the neck are unremarkable. There are degenerative changes in the cervical spine. Procedure Note Diego Dacosta MD - 05/30/2025 For Patients: As a result of the Century Cures Act, medical imagingexams and procedure reports are released immediately into your electronicmedical record. You may view this report before your referring provider.If you have questions, please contact your health care provider. CT ANGIOGRAM HEAD AND NECK DATE: 05/30/2025. CLINICAL HISTORY: Patient with focal neurological deficits. TECHNIQUE: Standard helical CT image acquisition through the head and neckwas performed after intravenous contrast bolus enhancement. 2D and 3D MIPimages for post-processing were performed and interpreted on an[employer] workstation and 3D images were permanently archived. COMPARISON: None. FINDINGS: The origins of the great vessels from the aortic arch are patent. Theorigin of the right vertebral artery is patent. The origin of the leftvertebral artery is patent. The common carotid arteries are patent. There is no stenosis at the origin of the right internal carotid artery byNASCET criteria. There is a critical (greater than 95%) stenosis at the origin of the leftinternal carotid artery by NASCET criteria. This is caused bynon-calcified plaque with a hairline residual lumen. The rest of the cervical segments of the internal carotid arteries arepatent up to their intracranial segments. The intracranial segments of theinternal carotid arteries are patent. The vertebral arteries are codominant. The cervical segments of thevertebral arteries are patent. The intracranial segments of the vertebralarteries demonstrate moderate narrowing on the left. The middle cerebral arteries are normal without aneurysm or proximalocclusion identified. The anterior cerebral arteries are normal without aneurysm or proximalocclusion identified. The anterior communicating artery is well visualized and appears normal. The basilar artery is normal without aneurysm or occlusion. The posterior cerebral arteries are normal without aneurysm or proximalocclusion. There is normal opacification of major intracranial venous structures. The visualized lung apices are unremarkable. The thyroid gland is unremarkable. The soft tissues of the neck are unremarkable. There are degenerative changes in the cervical spine. IMPRESSION: 1. Critical (greater than 95%) stenosis at the origin of the left internalcarotid artery by NASCET criteria. This is caused by non-calcified plaquewith a hairline residual lumen. 2. Intracranial atherosclerosis with moderate narrowing in the leftvertebral artery. Please note that all CT scans at this facility use dose modulation,iterative reconstruction, and/or weight-based dosing when appropriate toreduce radiation dose to as low as reasonably achievable. Dictated by: Diego Dacosta MD @ 05/30/2025 09:29:24 (Electronically Signed) Honey Alves NP CT Final Resu lt * (ABNORMAL) CREATININE,ISTAT (05/30/2025 8:50 AM CDT) [facility] CREATININE, POCT 1.10 0.57 - 1.11 mg/dL 06/04/2025 11:31 AM CDT [facility] Comment:Caution: Patients ta santiago Hydroxyurea have falsely increased iStat Creatinine results. Verify creatinine results ordering a Creatinine (73356.2) eGFR 50(L) >90 mL/min/1.7 3m2 06/04/2025 11:31 AM CDT [facility] Comment:As of 2021, eG FR is calculated by the CKD-EPI creatinine equation without race adjustment. eGFR can be influenced by muscle mass, exercise, and diet. The reported eGFR is an estimation only and is only applicable if the renal function is stable. Blood BLOOD SPECIMEN / Unknown 05/30/2025 8:50 AM CDT 06/04/2025 11:31 AM CDT Honey Alves NP CHEMISTRY Final Resu lt [facility] [address] [place] [address], * SCAN CORRESP-IMAGING (05/12/2025 12:00 AM CDT) Only the most recent of3 resultswithin the time period is included. Anatomical Region Laterality Modality Other us Scanner OTHER Final Result from Last 3 Months Insurance [facility] MEDICARE ADVANTAGE MR MEDICARE PART A HB ONLY Advance Directives * Full Code (Latest Code Status on File) Date Activated Date Inactivated Comments 06/17/2025 2:13 PM 06/19/2025 2:43 PM Question Answer Comments Code Status Discussion: Reviewed Preferences Care Teams Broach Grinder Relationship Specialty Start Date End Date Nadira Sy MD [address] [place] [address] PCP - General Family Practice 05/29/25
[2025-06-28 05:55] VITALS: BP 159/75; PULSE 62; RESP 16; TEMP 36.6; O2SAT 98; BMI 26.0
--- NOTE | 2025-06-28 06:29 | ED.GENADULT ---
HPI - General Adult General Time Seen by Provider: 06:29 Date Seen: 06/28/25 Chief complaint: Post Op Complication Stated complaint: surgery last wk/pain back of head Time Seen by Provider: 06/28/25 06:30 Source: patient Mode of arrival: ambulatory History of Present Illness HPI narrative: Angeline is a 84 yo female who is s/p recent left transcarotid arterial revascularization for carotid artery stenosis who presents to the ED for evaluation of head/neck pain. Patient presents from home with her son in law. Patient complains of pain to the back of her head a located on the left side. Patient describes the pain as a constant pain for the past 3-4 days and she is unable to sleep due to the pain. Patient has been taking Tylenol with no improvement of symptoms. Patient reports that she recently had surgery for left carotid artery stenosis on 06/17. Patient states that while she was in the hospital and shortly after that she was feeling well for approximately 6-7 days postoperatively. Patient reports then she developed the pain. Patient does not know if pain is related or not. Patient denies any weakness, dizziness, vision changes, chest pain, shortness of breath, abdominal pain. Patient does note some lower extremity edema. Patient had follow-up with her primary care provider on Monday and reported that lower extremity edema was expected after surgery. No other complaints. Related Data Home Medications ?Medication ?Instructions ?Recorded ?Confirmed acetaminophen 650 mg 650 mg PO QID PRN 08/03/23 06/25/25 tablet,extended release fexofenadine 180 mg tablet 180 mg PO DAILY PRN 08/03/23 06/25/25 multivitamin (Multiple Vitamins 1 tab PO QAM 08/03/23 06/25/25 tablet) magnesium 250 mg tablet 250 mg PO QDAY 12/06/23 06/28/25 clopidogrel 75 mg tablet 75 mg PO DAILY 06/25/25 06/28/25 Previous Rx's ?Medication ?Instructions ?Recorded epinephrine 0.3 mg/0.3 mL 0.3 ml IM .As Needed as needed PRN 07/26/24 injection, auto-injector hypersensitivity reaction #2 ea lisinopril 40 mg tablet 40 mg PO QDAY #90 tabs 10/09/24 metoprolol tartrate 50 mg tablet 75 mg (1.5 x 50 mg) PO BID #270 10/09/24 tabs omeprazole 20 mg capsule,delayed 20 mg PO QDAY #90 caps 10/09/24 release rosuvastatin 5 mg tablet 5 mg PO QDAY #90 tabs 02/12/25 aspirin 81 mg tablet 81 mg PO QDAY #90 tabs 04/22/25 amlodipine 10 mg tablet 10 mg PO QDAY #90 tabs 05/07/25 Allergies Allergy/AdvReac Type Severity Reaction Status Date / Time amoxicillin (From Augmentin) Allergy Intermediate Rash Verified 06/25/25 12:47 aspirin Allergy Intermediate Gastrointestinal Verified 06/25/25 12:47 Upset clavulanic acid (From Allergy Intermediate Rash Verified 06/25/25 12:47 Augmentin) cortisone Allergy Intermediate Rash Verified 06/25/25 12:47 naproxen Allergy Intermediate Gastrointestinal Verified 06/25/25 12:47 Upset Sulfa (Sulfonamide Allergy Intermediate Rash Verified 06/25/25 12:47 Antibiotics) atorvastatin (From Lipitor) Allergy Mild Muscle Pain Verified 06/25/25 12:47 bee venom protein (honey bee) Allergy Unknown Unknown Verified 06/25/25 12:47 simvastatin (From Zocor) Allergy Unknown Chest Pain Verified 06/25/25 12:47 Review of Systems Narrative: Past medical history, past surgical history, medications, allergies, family history, and social history were reviewed with the patient. No additional pertinent items. A medically appropriate review of systems was performed with pertinent positives and negatives noted in HPI, all other systems negative. 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 ?I12.9 - Hypertensive chronic kidney disease with stage 1 through stage 4 chronic kidney disease, or unspecified chronic kidney disease (ICD-10) ?N18.30 - Chronic kidney disease, stage 3 unspecified (ICD-10) Spondylosis of thoracolumbar spine ?M47.815 - Spondylosis without myelopathy or radiculopathy, thoracolumbar region (ICD-10) Rosacea ?L71.9 - Rosacea, unspecified (ICD-10) History of SCC (squamous cell carcinoma) of skin ?Z85.828 - Personal history of other malignant neoplasm of skin (ICD-10) Allergic rhinitis ?J30.9 - Allergic rhinitis, unspecified (ICD-10) Urinary, incontinence, stress female ?N39.3 - Stress incontinence (female) (male) (ICD-10) History of Helicobacter pylori infection (2010) ?Z86.19 - Personal history of other infectious and parasitic diseases (ICD-10) Diverticulosis ?K57.90 - Diverticulosis of intestine, part unspecified, without perforation or abscess without bleeding (ICD-10) Pulmonary nodules (~01/2023) ?R91.8 - Other nonspecific abnormal finding of lung field (ICD-10) Hyperlipidemia ?E78.5 - Hyperlipidemia, unspecified (ICD-10) Elevated lipase ?R74.8 - Abnormal levels of other serum enzymes (ICD-10) GERD (gastroesophageal reflux disease) ?K21.9 - Gastro-esophageal reflux disease without esophagitis (ICD-10) Hypertension ?I10 - Essential (primary) hypertension (ICD-10) Surgical History (Updated 06/23/25 @ 14:36 by Cordelia Vale) H/O transcarotid artery revascularization (TCAR) ?Z98.62 - Peripheral vascular angioplasty status (ICD-10) History of repair of rotator cuff (1999) ?Z98.890 - Other specified postprocedural states (ICD-10) History of carpal tunnel release ?Z98.890 - Other specified postprocedural states (ICD-10) History of cholecystectomy (2008) ?Z90.49 - Acquired absence of other specified parts of digestive tract (ICD-10) History of section ?Z98.891 - History of uterine scar from previous surgery (ICD-10) History of cyst of breast (1997) ?Z87.2 - Personal history of diseases of the skin and subcutaneous tissue (ICD-10) History of total bilateral knee replacement ?Z96.653 - Presence of artificial knee joint, bilateral (ICD-10) 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) ?Z96.642 - Presence of left artificial hip joint (ICD-10) Family History Colon cancer Brother, Onset Age: 56 Myocardial infarction Father, Onset Age: 66 Brother Lung cancer Brother Glaucoma Sister Social History Narrative: , 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 [employer], 6 children, lives in independent living [place] Never smoker Does not drink any alcohol Walks a hallway 1/2 M daily What is your current living situation?: I presently have a place to live Problems where you live: declined to answer In the past 12 months, utilities in danger of being shut off: no In past 12 months, lack of transportation kept you from medical appts, meetings, work, or getting things needed for daily living: no In the past 12 mos, have been you worried that your food would run out before you had money to buy more?: never true In the past 12 mos, the food you bought just didn't last and you didn't have money to buy more?: never true Smoking Status: Never smoker Do you use any of these nicotine containing products: None Second hand tobacco smoke exposure: No How often do you have a drink containing alcohol: never AUDIT-C Alcohol total score: 0 Non-prescribed substance use: denies use How often does anyone, including family, friends and others, physically hurt you: never How often does anyone, including family, friends and others, insult or talk down to you: never How often does anyone, including family, friends and others, threaten you with harm: never How often does anyone, including family, friends and others, scream or curse at you: never service: No Exam Narrative: Exam Narrative: General: Afebrile, in distress secondary to pain HEENT: Normocephalic, atraumatic, conjunctiva normal. MMM Neck: non-tender, supple, surgical incision on left anterior lateral neck unremarkable with no erythema, no drainage, appears to be healing well, no tenderness to palpation, no swelling noted. Cardio: regular rate. regular rhythm Resp: Normal work of breathing, no respiratory distress, lungs clear bilaterally, no wheezing, rhonchi, rales Chest/Back: no visual signs of trauma, no midline tenderness, no CVA tenderness Abdomen: soft, non distension, no tenderness, no peritoneal signs Neuro: alert and fully oriented. CN II-XII grossly intact. Grossly normal strength and sensation in all extremities. MSK: no deformities. Normal range of motion Integumentary/Skin: no rash visualized, normal color Psych: normal affect, normal behavior Const: Vital Signs, click to edit/add: Vital Signs - 24 hr 06/28/25 05:55 06/28/25 07:15 06/28/25 07:21 Temperature 98 F Pulse Rate [Pulse Oximeter] 62 Respiratory Rate 16 Respiratory Rate [ Upper Neck] 14 Blood Pressure [Ri ght Upper Arm] 159/75 H Pulse Oximetry 98 97 Oxygen Delivery Me thod Room Air Course Vital Signs Vital signs: Initial Vital Signs Temperature 98 F 06/28/25 05:55 Temperature Source Temporal Artery Scan 06/28/25 05:55 Pulse Rate 62 06/28/25 05:55 Respiratory Rate 16 06/28/25 05:55 Blood Pressure 159/75 H 06/28/25 05:55 Blood Pressure Mean 103 06/28/25 05:55 Blood Pressure Position Sitting 06/28/25 05:55 Pulse Oximetry 98 06/28/25 05:55 Oxygen Delivery Method Room Air 06/28/25 05:55 Vital Signs Temperature 98 F 06/28/25 05:55 Pulse Rate 62 06/28/25 05:55 Respiratory Rate 16 06/28/25 05:55 Blood Pressure 159/75 H 06/28/25 05:55 Pulse Oximetry 98 06/28/25 05:55 Oxygen Delivery Method Room Air 06/28/25 05:55 Temperature 98 F 06/28/25 05:55 Pulse Rate 62 06/28/25 05:55 Respiratory Rate 14 06/28/25 07:21 Blood Pressure 159/75 H 06/28/25 05:55 Pulse Oximetry 97 06/28/25 07:15 Oxygen Delivery Method Room Air 06/28/25 05:55 Medications Administered Medications: Discontinued Medications Generic Name Dose Route Start Last Admin Trade Name Freq PRN Reason Stop Dose Admin Hydromorphone HCl 0.5 mg 06/28/25 06:51 06/28/25 07:15 Hydromorphone 0.5 Mg/0.5 Ml Inj IVP 06/28/25 06:52 0.5 mg ONCE ONE Administration Medical Decision Making MDM Narrative Medical decision making narrative: Angeline is a 84 yo female who is s/p recent left transcarotid arterial revascularization for carotid artery stenosis who presents to the ED for evaluation of head/neck pain. Upon arrival patient is nontoxic appearing, afebrile, in distress secondary to pain. Patient here with left-sided head/neck pain for the past 4 days, prior to this recently had left carotid artery surgery. Patient with no focal neurological deficits, denies any weakness, dizziness, vision changes, chest pain, shortness of breath. Patient is taking Plavix, aspirin. Upon arrival patient was treated with a dose of IV Dilaudid, comprehensive labs performed, CT imaging performed. I personally reviewed and interpreted CT scan of the head which is unremarkable with no acute intracranial hemorrhage, no evidence of stroke, no mass effect. Comprehensive labs remarkable for white blood cell count 9.83, hemoglobin 11.8, sodium 132, potassium 3.9, creatinine 0.9. On re-evaluation patient does report improvement pain however is feeling a little out of it from the IV pain medication. Patient is also treated with lidocaine patch. Will plan for continues close monitoring re-evaluation here in the emergency department. Patient signed out to morning provider pending re-evaluation, final disposition. Lab Data Labs: Lab Results 06/28/25 Range/Units 07:15 WBC 9.83 (4.50-11.00) K/uL RBC 3.87 L (4.00-5.20) m/uL Hgb 11.8 L (12.0-16.0) gm/dL Hct 34.7 (33.0-51.0) % MCV 90 (80-100) fL MCH 31 (26-34) pg MCHC 34 (32-36) gm/dL RDW Coeff of Sumi 12.8 (11.5-15.5) % Plt Count 446 H (140-440) K/uL Neut % (Auto) 68.0 (42.0-72.0) % Lymph % (Auto) 21.2 (20-44) % [place] % (Auto) 7.8 (0.0-11.0) % Eos % (Auto) 2.0 (0.0-7.0) % Baso % (Auto) 0.7 (0.0-3.0) % Neut # (Auto) 6.68 (1.7-7.0) K/uL Lymph # (Auto) 2.08 (0.90-2.90) K/uL [place] # (Auto) 0.80 (0.00-0.90) K/UL Eos # (Auto) 0.20 (0.00-0.50) K/uL Baso # (Auto) 0.07 (0.00-0.30) K/uL Abs Immat Gran (auto) 0.03 (0.00-0.30) K/uL Imm/Tot Granulo (auto) 0.3 % Sodium 132 L (135-149) mmol/L Potassium 3.9 (3.6-5.1) mmol/L Chloride 97 (96-114) mmol/L Carbon Dioxide 23 (20-32) mmol/L Anion Gap 12 (7-15) mEq/L BUN 17 (7-30) mg/dL Creatinine 0.9 (0.5-1.5) mg/dL Estimated Creat Clear 38.36 Estimated GFR 63 ml/min Glucose 148 H (60-115) mg/dL Calcium 9.5 (8.4-10.6) mg/dL Total Bilirubin 0.7 (0.1-1.5) mg/dL AST 35 (12-35) U/L ALT 19 (4-35) U/L Alkaline Phosphatase 95 (40-150) U/L Total Protein 7.9 (6.0-8.3) g/dL Albumin 4.5 (3.3-5.0) g/dL Imaging Data CT scan - head: Radiologist's impression: FINDINGS: The brain shows no sign of mass lesion, mass effect, hemorrhage, or edema. There are involutional changes. There is moderate cortical atrophy and there is moderate white matter disease. There is no hydrocephalus. The visualized portions of the orbits are normal in appearance. The osseous structures are normal in appearance with no sign of abnormality in the skull base or calvarium. IMPRESSION: Involutional changes. No acute-appearing findings. Discharge Plan Discharge Prescriptions: No Action magnesium 250 mg tablet 250 mg PO QDAY lisinopril 40 mg tablet 40 mg PO QDAY Qty: 90 3RF metoprolol tartrate 50 mg tablet 75 mg PO BID Qty: 270 3RF omeprazole 20 mg capsule,delayed release(DR/EC) 20 mg PO QDAY Qty: 90 3RF amlodipine 10 mg tablet 10 mg PO QDAY Qty: 90 3RF fexofenadine 180 mg tablet 180 mg PO DAILY PRN multivitamin [Multiple Vitamins] Tablet 1 tab PO QAM acetaminophen 650 mg tablet extended release 650 mg PO QID PRN rosuvastatin 5 mg tablet 5 mg PO QDAY Qty: 90 3RF clopidogrel 75 mg tablet 75 mg PO DAILY epinephrine 0.3 mg/0.3 mL auto-injector 0.3 ml IM .As Needed as needed PRN (Reason: hypersensitivity reaction) Qty: 2 1RF aspirin 81 mg tablet 81 mg PO QDAY Qty: 90 3RF Follow Up/Referrals: Nadira Sy MD [Primary Care Provider, Family Practice]
--- NOTE | 2025-06-28 06:51 | CRLHL7_ITS ---
For Patients: As a result of the Century Cures Act, medical imaging exams and procedure reports are released immediately into your electronic medical record. You may view this report before your referring provider. If you have questions, please contact your health care provider. INDICATION: Headache COMPARISON: April 04, 2025 TECHNIQUE: CT examination of the head was performed as axial sections without intravenous contrast. Images were obtained from the vertex of the skull through the skull base. Please note that all CT scans at this facility use dose modulation, iterative reconstruction, and/or weight-based dosing when appropriate to reduce radiation dose to as low as reasonably achievable. FINDINGS: The brain shows no sign of mass lesion, mass effect, hemorrhage, or edema. There are involutional changes. There is moderate cortical atrophy and there is moderate white matter disease. There is no hydrocephalus. The visualized portions of the orbits are normal in appearance. The osseous structures are normal in appearance with no sign of abnormality in the skull base or calvarium. IMPRESSION: Involutional changes. No acute-appearing findings. Please note that all CT scans at this facility use dose modulation, iterative reconstruction, and/or weight-based dosing when appropriate to reduce radiation dose to as low as reasonably achievable. Dictated by Mohsen Garcia MD @ 06/28/2025 7:16:28 AM (Electronically Signed)
[2025-06-28 07:15] VITALS: O2SAT 97
[2025-06-28 07:21] VITALS: RESP 14; O2SAT 97
[2025-06-28 07:25] LABS: Hematocrit* 34.7 % (33.0-51.0); Hemoglobin* 11.8 gm/dL (12.0-16.0); Immature Granulocytes Abs Auto 0.03 K/uL (0.00-0.30); Immature Granulocytes Pct Auto 0.3 %; Lymphocytes Absolute Auto 2.08 K/uL (0.90-2.90); Mean Corpuscular HGB Conc 34 gm/dL (32-36); Mean Corpuscular Hemoglobin 31 pg (26-34); Mean Corpuscular Volume 90 fL (80-100); RDW Coefficient of Variation % 12.8 % (11.5-15.5); Red Blood Count* 3.87 m/uL (4.00-5.20); White Blood Count* 9.83 K/uL (4.50-11.00)
[2025-06-28 07:30] VITALS: BP 164/77; PULSE 62; RESP 20; O2SAT 96
[2025-06-28 07:35] LABS: Chloride* 97 mmol/L (96-114)
[2025-06-28 07:36] LABS: Albumin* 4.5 g/dL (3.3-5.0); Potassium* 3.9 mmol/L (3.6-5.1); Sodium* 132 mmol/L (135-149)
[2025-06-28 07:38] LABS: Alanine Aminotransferase* 19 U/L (4-35); Anion Gap 12 mEq/L (7-15); Aspartate Amino Transferase* 35 U/L (12-35); Blood Urea Nitrogen* 17 mg/dL (7-30); Carbon Dioxide* 23 mmol/L (20-32); Creatinine* 0.9 mg/dL (0.5-1.5); Est. Creatinine Clearance* 38.36; Estimated Glomerular Filt Rate 63 ml/min
[2025-06-28 07:39] LABS: Alkaline Phosphatase* 95 U/L (40-150); Bilirubin Total* 0.7 mg/dL (0.1-1.5); Calcium* 9.5 mg/dL (8.4-10.6); Glucose* 148 mg/dL (60-115); Total Protein* 7.9 g/dL (6.0-8.3)
[2025-06-28 07:43] LABS: Slide Review Reflex No
[2025-06-28 08:00] VITALS: BP 179/84; PULSE 67; RESP 20; O2SAT 99
[2025-06-28 08:30] VITALS: BP 176/77; PULSE 81; RESP 18; O2SAT 98
[2025-06-28] MEDS: LIDOCAINE 5% PATCH 1 PATCH TRANSDERMA (09:45)
== END 2025-06-28 10:00 | disposition home or self-care (01) ==
PROVIDERS: Emergency Provider Emergency Medicine; PCP Family Medicine
DX: M54.2 Cervicalgia (principal); S09.90XA Unspecified injury of head, initial encounter
CPT/HCPCS: 36415; 70450; 80053; 85025; 94761; 96374; 99284; 99285; A9270; J1171

== ENCOUNTER 2025-07-02 12:17 | Emergency (ER) | payer MEDICARE, SELFPAY ==
--- OUTSIDE RECORDS SUMMARY | 2023-03-05 19:00 | XMS_ITS | Continuity of Care Document ---
Author Organization [facility] Address [address] [address] [place] [address] Phone Care Team Providers Care Hand Knitter Name Role Phone Ilsa Tavares MD Unavailable Unavailable Procedures Procedure Date Colonoscopy Flex; Dx (jun) Advance Directives Directive Yes / No Effective Date File Name No Information Encounters Encounter Description Practice Location Reason(s) For Visit Diagnoses Date Provider Providers Copied on Encounter [facility] [employer] [place], [address] [address], [place], [place], [id number], tel:[phone] [facility] No Information Anusha Rosenbaum. [address] [place] [address], [place], [place], [id number], [place]. tel:[phone] Referring Provider: Ilsa Tavares MD, [facility] [address], [address]. tel:[phone] [facility] [employer] [place], [address] [address], [place], [place], [id number], tel:[phone] [facility] No Information Danny Connolly. [address] [place] [address], [place], [place], [id number], [place]. tel:[phone] Family History Family Member Type Diagnosis Age [...] directional interface ; Source: Other Registry Novel [id number], all formulations administered Note: [facility] bi-direct ional [...] Registry Payers Payer name Insurance type Covered republican ID Authoriza tion(s) Medicare NGS MB [id number] [employer] [employer] Medicare Supplement BL [id number] Social History Type Description Quantity Date Captured [...]
[2025-07-02 12:22] VITALS: BP 141/68; PULSE 66; RESP 18; TEMP 35.8; O2SAT 97; BMI 26.6
--- NOTE | 2025-07-02 13:37 | ED.GENADULT ---
HPI - General Adult General Chief complaint: Weakness Stated complaint: Low NA Time Seen by Provider: 07/02/25 12:24 History of Present Illness HPI narrative: 84-year-old white female was seen in the clinic today and she has had some difficulty sleeping since her carotids dent was placed. The patient has been started on Seroquel and will start that later today. Some labs were drawn she had a sodium of 125. She reports she drinks a lot a water[place] [id number]. She has had no fevers or chills. Her wound looks intact. She has had no cough, chest pain, skin rashes or other abnormalities. Related Data Home Medications ?Medication ?Instructions ?Recorded ?Confirmed acetaminophen 650 mg 650 mg PO QID PRN 08/03/23 07/02/25 tablet,extended release fexofenadine 180 mg tablet 180 mg PO DAILY PRN 08/03/23 07/02/25 multivitamin (Multiple Vitamins 1 tab PO QAM 08/03/23 07/02/25 tablet) magnesium 250 mg tablet 250 mg PO QDAY 12/06/23 07/02/25 clopidogrel 75 mg tablet 75 mg PO DAILY 06/25/25 07/02/25 Previous Rx's ?Medication ?Instructions ?Recorded epinephrine 0.3 mg/0.3 mL 0.3 ml IM .As Needed as needed PRN 07/26/24 injection, auto-injector hypersensitivity reaction #2 ea lisinopril 40 mg tablet 40 mg PO QDAY #90 tabs 10/09/24 metoprolol tartrate 50 mg tablet 75 mg (1.5 x 50 mg) PO BID #270 10/09/24 tabs omeprazole 20 mg capsule,delayed 20 mg PO QDAY #90 caps 10/09/24 release rosuvastatin 5 mg tablet 5 mg PO QDAY #90 tabs 02/12/25 aspirin 81 mg tablet 81 mg PO QDAY #90 tabs 04/22/25 amlodipine 10 mg tablet 10 mg PO QDAY #90 tabs 05/07/25 quetiapine 25 mg tablet (Seroquel) 12.5 mg (1/2 x 25 mg) PO BID PRN 07/02/25 delirium, insomia #30 tabs Allergies Allergy/AdvReac Type Severity Reaction Status Date / Time amoxicillin (From Augmentin) Allergy Intermediate Rash Verified 07/02/25 12:35 aspirin Allergy Intermediate Gastrointestinal Verified 07/02/25 12:35 Upset clavulanic acid (From Allergy Intermediate Rash Verified 07/02/25 12:35 Augmentin) cortisone Allergy Intermediate Rash Verified 07/02/25 12:35 naproxen Allergy Intermediate Gastrointestinal Verified 07/02/25 12:35 Upset Sulfa (Sulfonamide Allergy Intermediate Rash Verified 07/02/25 12:35 Antibiotics) atorvastatin (From Lipitor) Allergy Mild Muscle Pain Verified 07/02/25 12:35 bee venom protein (honey bee) Allergy Unknown Unknown Verified 07/02/25 12:35 simvastatin (From Zocor) Allergy Unknown Chest Pain Verified 07/02/25 12:35 hydromorphone (From Dilaudid) AdvReac Intermediate hysteria, Verified 07/02/25 12:35 anxiety Review of Systems Status of ROS: Reports: 6 or more systems reviewed and unremarkable except as noted in History and below [facility] Medical History Stress at home (~2021) ?F43.9 - Reaction to severe stress, unspecified (ICD-10) Right hand weakness (04/04/25) ?R29.898 - Other symptoms and signs involving the musculoskeletal system (ICD-10) Pre-diabetes (12/06/23) ?R73.03 - Prediabetes (ICD-10) White coat syndrome with diagnosis of hypertension ?I10 - Essential (primary) hypertension (ICD-10) Osteopenia (04/02/24) ?M85.80 - Other specified disorders of bone density and structure, unspecified site (ICD-10) 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 ?I12.9 - Hypertensive chronic kidney disease with stage 1 through stage 4 chronic kidney disease, or unspecified chronic kidney disease (ICD-10) ?N18.30 - Chronic kidney disease, stage 3 unspecified (ICD-10) Spondylosis of thoracolumbar spine ?M47.815 - Spondylosis without myelopathy or radiculopathy, thoracolumbar region (ICD-10) Rosacea ?L71.9 - Rosacea, unspecified (ICD-10) History of SCC (squamous cell carcinoma) of skin ?Z85.828 - Personal history of other malignant neoplasm of skin (ICD-10) Allergic rhinitis ?J30.9 - Allergic rhinitis, unspecified (ICD-10) Urinary, incontinence, stress female ?N39.3 - Stress incontinence (female) (male) (ICD-10) History of Helicobacter pylori infection (2010) ?Z86.19 - Personal history of other infectious and parasitic diseases (ICD-10) Diverticulosis ?K57.90 - Diverticulosis of intestine, part unspecified, without perforation or abscess without bleeding (ICD-10) Pulmonary nodules (~01/2023) ?R91.8 - Other nonspecific abnormal finding of lung field (ICD-10) Hyperlipidemia ?E78.5 - Hyperlipidemia, unspecified (ICD-10) Elevated lipase ?R74.8 - Abnormal levels of other serum enzymes (ICD-10) GERD (gastroesophageal reflux disease) ?K21.9 - Gastro-esophageal reflux disease without esophagitis (ICD-10) Hypertension ?I10 - Essential (primary) hypertension (ICD-10) Surgical History H/O transcarotid artery revascularization (TCAR) (06/17/25) ?Z98.62 - Peripheral vascular angioplasty status (ICD-10) History of repair of rotator cuff (1999) ?Z98.890 - Other specified postprocedural states (ICD-10) History of carpal tunnel release ?Z98.890 - Other specified postprocedural states (ICD-10) History of cholecystectomy (2008) ?Z90.49 - Acquired absence of other specified parts of digestive tract (ICD-10) History of section ?Z98.891 - History of uterine scar from previous surgery (ICD-10) History of cyst of breast (1997) ?Z87.2 - Personal history of diseases of the skin and subcutaneous tissue (ICD-10) History of total bilateral knee replacement ?Z96.653 - Presence of artificial knee joint, bilateral (ICD-10) 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) ?Z96.642 - Presence of left artificial hip joint (ICD-10) Family History Father Myocardial infarction, Onset Age: 66 Brother Myocardial infarction Brother Colon cancer, Onset Age: 56 Lung cancer Sister Glaucoma Social History Narrative: , 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[place], 6 children, lives in independent living [place] Never smoker Does not drink any alcohol Walks a hallway 1/2 M daily What is your current living situation?: I presently have a place to live Problems where you live: declined to answer In the past 12 months, utilities in danger of being shut off: no In past 12 months, lack of transportation kept you from medical appts, meetings, work, or getting things needed for daily living: no In the past 12 mos, have been you worried that your food would run out before you had money to buy more?: never true In the past 12 mos, the food you bought just didn't last and you didn't have money to buy more?: never true Smoking Status: Never smoker Do you use any of these nicotine containing products: None Second hand tobacco smoke exposure: No How often do you have a drink containing alcohol: never AUDIT-C Alcohol total score: 0 Non-prescribed substance use: denies use How often does anyone, including family, friends and others, physically hurt you: never How often does anyone, including family, friends and others, insult or talk down to you: never How often does anyone, including family, friends and others, threaten you with harm: never How often does anyone, including family, friends and others, scream or curse at you: never service: No Exam Narrative: Exam Narrative: Objective: Vital signs look within normal limits Alert orient x3 She has mild has multiple bruises from being on her novel anticoagulant. Her stent placement site looks intact and noninfected. Neurologic is nonfocal Const: Vital Signs, click to edit/add: Vital Signs - 24 hr 07/02/25 12:22 07/02/25 15:11 Temperature 96.5 F L 97.6 F Pulse Rate [Pulse Oximeter] 66 61 Respiratory Rate 18 18 Blood Pressure [Le ft Upper Arm] 141/68 H 154/82 H Pulse Oximetry 97 95 Oxygen Delivery Me thod Room Air Room Air Course Vital Signs Vital signs: Initial Vital Signs Temperature 96.5 F L 07/02/25 12:22 Temperature Source Temporal Artery Scan 07/02/25 12:22 Pulse Rate 66 07/02/25 12:22 Respiratory Rate 18 07/02/25 12:22 Blood Pressure 141/68 H 07/02/25 12:22 Blood Pressure Mean 92 07/02/25 12:22 Blood Pressure Position Sitting 07/02/25 12:22 Pulse Oximetry 97 07/02/25 12:22 Oxygen Delivery Method Room Air 07/02/25 12:22 Vital Signs Temperature 96.5 F L 07/02/25 12:22 Pulse Rate 66 07/02/25 12:22 Respiratory Rate 18 07/02/25 12:22 Blood Pressure 141/68 H 07/02/25 12:22 Pulse Oximetry 97 07/02/25 12:22 Oxygen Delivery Method Room Air 07/02/25 12:22 Temperature 97.6 F 07/02/25 15:11 Pulse Rate 61 07/02/25 15:11 Respiratory Rate 18 07/02/25 15:11 Blood Pressure 154/82 H 07/02/25 15:11 Pulse Oximetry 95 07/02/25 15:11 Oxygen Delivery Method Room Air 07/02/25 15:11 Medications Administered Medications: Discontinued Medications Generic Name Dose Route Start Last Admin Trade Name Freq PRN Reason Stop Dose Admin Acetaminophen 1,000 mg 07/02/25 14:13 07/02/25 14:19 Acetaminophen 500 Mg Tablet PO 07/02/25 14:14 1,000 mg ONCE ONE Administration Sodium Chloride 500 mls @ 500 mls/hr 07/02/25 13:34 07/02/25 15:10 0.9 % Sodium Chloride 500 Ml IV 07/02/25 14:33 Infused .Q1H ONE Infusion Medical Decision Making [facility] Narrative Medical decision making narrative: 84-year-old female with a recent carotid stent. She has low sodium at 1:25 a.m.. She does drink a lot a water. She does not exhibit any symptoms specifically of hyponatremia. At this point I think we would give her 500 mL normal saline, will have her restrict her water intake at home to 4 glasses of water a day. Would recommend recheck her sodium in the next 4-7 days. She will start her Seroquel as planned. Return as needed. Discharge Plan Discharge Clinical Impression: Acute hyponatremia Patient Disposition: Home w/ Parent or Adult Condition: Stable Instructions: Hyponatremia (ED) Additional Instructions: Recheck sodium 4-7 days. Would recommend limit water intake to 4 glasses of water a day. Activity as tolerated, return as needed. Follow up with primary care for repeat sodium level. Activity Level: Light activity Discharge Diet: Regular Prescriptions: No Action magnesium 250 mg tablet 250 mg PO QDAY lisinopril 40 mg tablet 40 mg PO QDAY Qty: 90 3RF metoprolol tartrate 50 mg tablet 75 mg PO BID Qty: 270 3RF omeprazole 20 mg capsule,delayed release(DR/EC) 20 mg PO QDAY Qty: 90 3RF amlodipine 10 mg tablet 10 mg PO QDAY Qty: 90 3RF fexofenadine 180 mg tablet 180 mg PO DAILY PRN multivitamin [Multiple Vitamins] Tablet 1 tab PO QAM acetaminophen 650 mg tablet extended release 650 mg PO QID PRN rosuvastatin 5 mg tablet 5 mg PO QDAY Qty: 90 3RF clopidogrel 75 mg tablet 75 mg PO DAILY quetiapine [Seroquel] 25 mg tablet 12.5 mg PO BID PRN (Reason: delirium, insomia) Qty: 30 0RF epinephrine 0.3 mg/0.3 mL auto-injector 0.3 ml IM .As Needed as needed PRN (Reason: hypersensitivity reaction) Qty: 2 1RF aspirin 81 mg tablet 81 mg PO QDAY Qty: 90 3RF Follow Up/Referrals: Nadira Sy MD [Primary Care Provider, Family Practice] Stand Alone Forms: [employer] Info Instructions
[2025-07-02] MEDS: 0.9 % SODIUM CHLORIDE 500 ML 500 ML IV (13:52)
[2025-07-02] MEDS: ACETAMINOPHEN 500 MG TABLET 1000 MG PO (14:19)
[2025-07-02 15:11] VITALS: BP 154/82; PULSE 61; RESP 18; TEMP 36.4; O2SAT 95
== END 2025-07-02 15:15 | disposition home or self-care (01) ==
PROVIDERS: Emergency Provider Family Medicine; PCP Family Medicine
DX: E87.1 Hypo-osmolality and hyponatremia (principal)
CPT/HCPCS: 80053; 96360; 99283; 99284; A9270; J7030

== ENCOUNTER 2025-07-09 11:14 | Outpatient (CLI) | payer MEDICARE, SELFPAY | END 2025-07-09 11:15 | disposition home or self-care (01) | LOC: NFLDREF 11:15 | PROVIDERS: PCP Family Medicine; Visit Provider Family Medicine | DX: E87.1 Hypo-osmolality and hyponatremia (principal); M47.22 Other spondylosis with radiculopathy, cervical region | CPT/HCPCS: 80048 ==

== ENCOUNTER 2025-09-16 08:15 | Outpatient (CLI) | payer MEDICARE, SELFPAY | END 2025-09-16 08:16 | disposition home or self-care (01) | LOC: NFLDREF 09-18 14:07 | PROVIDERS: PCP Family Medicine; Referring Provider Family Medicine; Visit Provider Family Medicine | DX: E78.5 Hyperlipidemia, unspecified (principal); E11.29 Type 2 diabetes mellitus with other diabetic kidney complication; R80.9 Proteinuria, unspecified; E78.2 Mixed hyperlipidemia; I10 Essential (primary) hypertension; M85.80 Other specified disorders of bone density and structure, unspecified site | CPT/HCPCS: 80053; 80061; 82043; 82306; 82570; 82607 ==